=== PATIENT | male | born 1945 | race Caucasian/White ===

== ENCOUNTER 2019-03-29 10:29 | Emergency (ER) | payer OTHER, SELFPAY ==
[2019-03-29 10:36] VITALS: BP 134/63; PULSE 51; RESP 20; TEMP 36.8; O2SAT 97
--- NOTE | 2019-03-29 10:57 | DI.RAD_ITS ---
SYMPTOM/DIAGNOSIS: FELL, LT RIB PAIN PA AND LATERAL CHEST: Comparison is made with 11/22/14. Heart size and pulmonary vasculature are within normal limits. Sternal wires are in place. The lungs are clear. No effusions are seen. No acute osseous abnormality is identified. Degenerative changes are seen in the spine. The patient is status post aortic valve replacement. IMPRESSION: No acute pulmonary process.
[2019-03-29] MEDS: Lidocaine 5% Patch 1 PATCH TP (11:14)
[2019-03-29] MEDS: Acetaminophen 500 MG TAB 1000 MG PO (11:14)
--- NOTE | 2019-03-29 12:12 | ED.GENADUL_ITS ---
Discharge Plan Disposition Patient Disposition: HOME Condition: Good Discharge Details Chief Complaint: Chest/Rib Clinical Impression: Contusion of rib on left side Primary Care Provider: Unknown,Unknown ED Provider: oJse Walker Home Meds and New Rx's Prescriptions: New acetaminophen [Mapap Extra Strength] 500 MG tablet 1,000 mg PO Q6H 5 Days Qty: 60 RF: 0 lidocaine [Lidoderm] 1 PATCH patch 1 patch Topical Q24H Qty: 4 RF: 0 No Action aspirin [Aspir-81] 81 MG tablet,delayed release (DR/EC) 81 mg PO DAILY RF: 0 simvastatin 5 MG tablet 5 mg PO DAILY RF: 0 cvvuaeor-eev-FD-lycopen-lutein [Centrum Silver] 1 EACH tablet 1 tab PO DAILY RF: 0 Discharge Instructions Instructions: Rib Contusion (ED) Additional Instructions: Your x-ray results show no evidence of rib fracture, or significant fluid on your lungs. The ultrasound findings were also normal. I suspect a notable contusion to your left ribs. Please take the Lidoderm patch as directed, as well as maximum dose Tylenol. Please use the incentive spirometry multiple times per day. If you notice any worsening of your symptoms, or any new symptoms such as vomiting, diarrhea, fever, chills, shortness of breath, chest pain, numbness, weakness, or fainting , please return immediately to the emergency department for reevaluation. Please follow up with your primary care provider as soon as possible for reassessment and reevaluation. As always, it was a pleasure participating in your medical care today. Medical Decision Making This is a pleasant 73-year-old male who presents today for evaluation of left rib pain. The patient states that he was walking with his dog and he went to pick it up but fell and hit his left mid ribs. He denies any other significant trauma or pain. Physical exam demonstrates reproducible tenderness over the left seventh and eighth ribs, no paradoxical movement, normal oxygen saturations. Bedside ultrasound demonstrates no evidence of pneumothorax, negative E fast exam. Chest x-ray was ordered to evaluate for significant rib fracture, and per Dr. Dixon there is no evidence of significant fracture or acute process. Incentive spirometry was ordered and the patient did very well with this with notable volume intakes. Lidoderm patch and NSAIDs were given the patient had notable improvement of his pain with this. Will recommend continued NSAIDs at home, incentive spirometry, and Lidoderm patches. We discussed red flags which to return the patient understands. I have extensively reviewed the treatment plan and discharge instructions with the patient. I have addressed all patient concerns at this time. The patient was made aware of what symptoms to monitor for that would warrant a return to the emergency department. Discussed the plan with the patient, they demonstrate verbal understanding and agreement with our assessment and plan at this time. E-FAST Exam type: Diagnostic Indication for exam: Blunt trauma Views obtained: hepatorenal, perisplenic, suprapubic, pericardial, R lung, L lung Findings and interpretations: all views were adequate. No abdominal free fluid or pericardial fluid seen. Normal lung sliding, normal sea shore sign, no bar code sign indicating no pneumothorax. The patient tolerated the procedure well and there were no complications. HPI General Date/Time Provider Initiated Documentation: 03/29/19 10:42 . HPI Narrative: This is a 73-year-old male with past medical history of high cholesterol who presents today for evaluation of left-sided rib pain. Patient states that yesterday he fell when trying to fern picker his dog, and lifted on his left mid ribs. Since then he has had mild pain with breathing and palpation over the left mid ribs. He denies any cough or shortness of breath. He denies any vomiting diarrhea or abdominal pain. He is on no blood thinners. He states that he is concerned he may have cracked 1 of his ribs. He denies any other complaints. He denies any numbness tingling or weakness. He denies any other complaints modifying factors Related Data Home Medications Medication Instructions Recorded Confirmed aspirin [Aspir-81] 81 mg PO DAILY 11/22/14 10/30/17 soacocsd-mws-YC-lycopen-lutein 1 tab PO DAILY 11/22/14 10/30/17 [Centrum Silver] simvastatin 5 mg PO DAILY 11/22/14 10/30/17 acetaminophen [Mapap Extra 1,000 mg PO Q6H 5 Days #60 tab 03/29/19 Strength] lidocaine [Lidoderm] 1 patch TOPICAL Q24H #4 patch 03/29/19 Previous Rx's Medication Instructions Recorded acetaminophen [Mapap Extra 1,000 mg PO Q6H 5 Days #60 tab 03/29/19 Strength] lidocaine [Lidoderm] 1 patch TOPICAL Q24H #4 patch 03/29/19 Allergies Allergy/AdvReac Type Severity Reaction Status Date / Time No Known Allergies Allergy Unverified 10/30/17 10:12 General Stated Complaint: Chest/Rib CARLEE: 3 Review of Systems Review of Systems All systems reviewed & are unremarkable except as noted in HPI and below PFSH Social History Smoking/Tobacco Use Status: Never Alcohol Intake: never Drug use: Never Substance use type: does not use Do you feel safe at home: Yes Do you feel safe in your relationship?: Yes Exam Narrative Exam Narrative: 1.Const: Well-nourished, Well-developed, appearing stated age 2.Eyes: PERRL, no conjunctival injection, and symmetrical lids. 3.ENT: Atraumatic external nose and ears. Moist MM. Neck: Symmetric, trachea midline, No thyromegaly. 4.CVS: +S1/S2, No murmurs or gallops. Peripheral pulses 2+ and equal in all extremities. Brisk capillary refill in all extremities. 5.RESP: airway clear, no obstructions. No abrasions or ecchymosis. Chest movement symmetric with respirations.Trachea midline. No crepitus. No step offs. No paradoxical movements. Lungs are clear to auscultation bilaterally. No rales, rhonchi, wheezing or stridor. Breath sound symmetric. No Sucking chest wounds. No clinical evidence of significant chest trauma. The patient does have mild reproducible left-sided rib pain tenderness over rib 7 and 8. No evidence of significant bruising or paradoxical movement. 6.GI: Soft, Nontender/Nondistended, No hepatosplenomegaly. No guarding or rebound. 7.MSK: Normocephalic/Atraumatic, Extremities w/o deformity or ttp No cyanosis or clubbing, Normal movement of all extremities 8.Skin: Warm, Dry. No rashes or lesions. 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 Sensation grossly intact, no focal neurologic deficits. 10.Psych: (AAO) x3. Appropriate mood and affect Course Vital Signs Temperature 36.8 C 03/29/19 10:36 Pulse 51 L 03/29/19 10:36 Respiratory Rate 20 03/29/19 10:36 Blood Pressure 134/63 03/29/19 10:36 Pulse Oximetry 97 03/29/19 10:36 Temperature 36.8 C 03/29/19 10:36 Temperature Source Temporal Artery Scan 03/29/19 10:36 Pulse 51 L 03/29/19 10:36 Respiratory Rate 20 03/29/19 10:36 Respiratory Effort Non-Labored 03/29/19 10:36 Blood Pressure 134/63 03/29/19 10:36 Pulse Oximetry 97 03/29/19 10:36 Oxygen Delivery Method Room Air 03/29/19 10:36 Oxygen Flow Rate 0 03/29/19 10:36 Pain Level 5 03/29/19 10:36
== END 2019-03-29 12:29 | disposition home or self-care (01) ==
PROVIDERS: Emergency Provider Student in an Organized Health Care Education/Training Program
DX: S20.222A Contusion of left back wall of thorax, initial encounter (principal); W01.0XXA Fall on same level from slipping, tripping and stumbling without subsequent striking against object, initial encounter
CPT/HCPCS: 99283; 71046; 99282

== ENCOUNTER 2024-05-14 10:15 | Emergency (ER) | payer OTHER, SELFPAY ==
[2024-05-14] VITALS (36 sets, daily range): BP systolic 130–171; BP diastolic 60–80; PULSE 44–77; RESP 10–25; TEMP 36.9; O2SAT 91–98
--- NOTE | 2024-05-14 10:00 | RT.EKG_ITS ---
APPROVED REPORT Exam: Resting ECG Reason for Exam: sob, chest pain Patient Location: E HR:54 bpm ECG Measurements Heart Rate 54 AXIS MT [id number] P [id number] QRSd 100 QRS 76 QT 393 T [id number] QTc 371 Conclusion Atrial fibrillation...? atrial activity Probable anterior infarct, age indeterminate...Q >35mS, T neg, V2-V5
--- NOTE | 2024-05-14 10:30 | DI.RAD_ITS ---
Exam(s) XR PORTABLE CHEST AP EXAM: XR PORTABLE CHEST AP CLINICAL HISTORY: shortness of breath TECHNIQUE: 2D digital imaging was performed. COMPARISON: CR XR CHEST 2V PA LATERAL from 03/29/2019 FINDINGS: LUNGS: Clear. No pleural abnormality seen. HEART: Normal size. Status post CABG. AORTA: Normal diameter. BONES: Sternal wires. Soft tissues: Unremarkable. IMPRESSION: No acute findings. DATA REPOSITORY: RADIATION DOSE DELIVERED:
[2024-05-14 10:32] LABS: BE (Venous) 1 mmol/L (-2-3); HCO3 (Venous) 25 mmol/L (23-28); O2 Sat (Venous) 90 %; TCO2 (Venous) 22 mmol/L (24-29); pCO2 (Venous) 35 mmHg (41-51); pH (Venous) 7.45 (7.31-7.41); pO2 (Venous) 53 mmHg
[2024-05-14 10:35] LABS: Abs Immature Grans 0.01 10^3/uL (0.0-0.06); Absolute Basophil Count 0.04 10^3/uL (0.0-0.2); Absolute Eosinophil Count 0.11 10^3/uL (0.0-0.7); Absolute Lymphocyte Count 1.15 10^3/uL (1.2-3.4); Absolute Neutrophil Count 3.85 10^3/uL (1.2-6.7); Basophils % 0.7 %; Eosinophils % 1.9 %; HCT 40.1 % (40.0-50.0); HGB 13.7 g/dL (13.5-17.5); Immature Grans % 0.2 %; Lymphocytes % 19.6 %; MCH 30.7 pg (27.0-33.0); MCHC 34.2 % (32.0-36.0); MCV 90 fL (80-95); Monocytes % 11.9 %; Neutrophils % 65.7 %; RBC 4.46 10^6/uL (4.36-5.78); RDW 13.3 % (11.8-14.1); RDW-SD 43.9 fL; WBC 5.86 10^3/uL (4.4-10.8)
--- NOTE | 2024-05-14 10:39 | ED.GENADUL_ITS ---
Discharge Plan Disposition Patient Disposition: Home Condition: Stable Discharge Details Clinical Impression: Dyspnea on exertion Primary Care Provider: Keyon Anderson ED Provider: Norbert Moss Home Meds and New Rx's Prescriptions: Continued cholecalciferol (vitamin D3) 25 mcg (1,000 unit) capsule 1,000 unit PO DAILY Patient Comments: 05/04/20- pt reported med. NC atorvastatin 80 mg tablet 80 mg PO DAILY tamsulosin 0.4 mg capsule 0.4 mg PO DAILY aspirin [Aspir-81] 81 MG tablet,delayed release (DR/EC) 81 mg PO DAILY Patient Comments: Pt also takes BP pill but doesn't know the name or dose losartan [Cozaar] 50 mg tablet 50 mg PO DAILY Discharge Instructions Additional Instructions: Your blood work and CAT scan did not show any concerning findings at this time. I recommend following up with your primary care provider or waste cotton cleaner soon as possible. If you develop any severe worsening symptoms, severe chest pain or worsening sh ortness of breath return to the emergency department for reevaluation. Discharge Data Discharge Date/Time-TO BE ENTERED AT DEPARTURE: 05/14/24 14:20 HPI General Mode of arrival: ambulatory . Date/Time Provider Initiated Documentation: 05/14/24 10:17 . Limitations to Documentation: no limitations . Information obtained by: patient . History of Present Illness 78 year old M presents to the emergency department with the chief complaint of dyspnea with exertion, described as moderate, Patient started experiencing this week(s) (2) and it has been intermittent. Rest improves symptom(s), Movement worsens symptoms . Patient notes diaphoresis; denies chest pain. Patient did receive the following treatments prior to arrival, none Related Data Home Medications ?Medication ?Instructions ?Recorded ?Confirmed aspirin 81 mg tablet,delayed 81 mg PO DAILY 11/22/14 05/14/24 release (Aspir-) atorvastatin 80 mg tablet 80 mg PO DAILY 01/02/20 05/14/24 tamsulosin 0.4 mg capsule 0.4 mg PO DAILY 01/02/20 05/14/24 cholecalciferol (vitamin D3) 25 1,000 unit PO DAILY 05/04/20 05/14/24 mcg (1,000 unit) capsule losartan 50 mg tablet (Cozaar) 50 mg PO DAILY 05/14/24 05/14/24 Allergies Allergy/AdvReac Type Severity Reaction Status Date / Time No Known Allergies Allergy Verified 05/14/24 10:22 General Stated Complaint: RespSymp CARLEE: 3 Review of Systems All systems reviewed & are unremarkable except as noted in HPI and below Constitutional Constitutional: Denies chills, Denies fever(s) and Denies weakness Cardiovascular Cardiovascular: Denies chest pain and Reports dyspnea Respiratory Respiratory: Denies cough and Reports dyspnea Gastrointestinal Gastrointestinal: Denies abdominal pain, Denies nausea and Denies vomiting Musculoskeletal Musculoskeletal: Denies joint swelling Neurologic Neurologic: Denies weakness Exam Const General: no acute distress Orientation: alert HENMT Head: normal to inspection Ears: external ears normal General nose exam: external nose normal Mouth: moist mucous membranes Eyes General: appearance normal, both eyes and all related structures Neck Neck: normal visual inspection Resp Effort & Inspection: normal respiratory effort and able to speak in complete sentences Auscultation: clear to auscultation bilaterally Cardio Jugular venous pressure: no JVD Rate: regular rate Skin General skin exam: no rashes or lesions noted Neuro General: patient alert and patient oriented x3 Extrem General: normal to inspection Psych Mental Status: mental status grossly normal Course Vital Signs Vital signs: Vital Signs Temperature 36.9 C 05/14/24 10:17 Pulse 74 05/14/24 10:17 Respiratory Rate 18 05/14/24 10:17 Blood Pressure 167/76 H 05/14/24 10:17 Pulse Oximetry 94 05/14/24 10:17 Temperature 36.9 C 05/14/24 10:17 Temperature Source Oral 05/14/24 10:17 Pulse 74 05/14/24 10:17 Respiratory Rate 18 05/14/24 10:17 Respiratory Effort Normal, Non-Labored 05/14/24 10:23 Blood Pressure 167/76 H 05/14/24 10:17 Blood Pressure Position Sitting 05/14/24 10:17 Pulse Oximetry 94 05/14/24 10:17 Oxygen Delivery Method Room Air 05/14/24 10:17 Oxygen Flow Rate 0 05/14/24 10:17 Lab/Test Results Lab/Test Results: Laboratory Tests Range/Units 05/14/24 10:10 VBG pH (7.31-7.41) 7.45 H VBG pCO2 (41-51) mmHg 35 L VBG pO2 mmHg 53 VBG HCO3 (23-28) mmol/L 25 VBG Total CO2 (24-29) mmol/L 22 L VBG O2 Saturation % 90 VBG Base Excess (-2-3) mmol/L 1 Magnesium Cancelled Troponin I Cancelled NT-Pro-B Natriuret Pep Cancelled Medical Decision Making 78-year-old male with a history of coronary artery disease status post coronary bypass, hyperlipidemia, comes in with EMS with 2 weeks of shortness of breath and diaphoresis when he walks up stairs to his apartment. He denies any chest pain, fevers, cough, abdominal pain, vomiting. He is currently alert and orie nted speaking clearly in no distress. He denies any symptoms while resting in the stretcher. He has clear lung sounds, no JVD. Given his risk factors and complaints will obtain troponin, CBC, CMP start with a chest x-ray. If unremarkable workup we will consider CTA of the chest but he does not have any evidence of DVT on exam and he is not tachycardic or hypoxic so doubt PE at this time. Labs thus far unremarkable, patient stable. X-ray unremarkable given his age will obtain CTA as his renal function is adequate. Patient stable, CT unremarkable. Delta troponin negative. I discussed the results with him and recommended admission for observation and further testing including potentially having echocardiogram versus stress testing and remaining on telemetry monitoring. Patient has medical decision-making capacity and after discussing the reassuring workup he is declining to stay and prefers to follow- up with his primary care provider and is wanting hospital. He understands risks of leaving including worsening symptoms and missed [place] which could lead to or permanent disability and he is willing accept the risk. Given reassuring workup do not feel he is officially signed out AMA but distressed that he needs to follow-up with his PCP or waste cotton cleaner as soon as possible return precautions given. Differential Diagnosis Differential Diagnosis: CHF, NSTEMI, angina Imaging Data Radiologic Study: Attestation: I personally reviewed and interpreted this imaging study as follows: Imaging: X-Ray Radiologist's impression: no acute findings Radiologic Study #2: Attestation: I personally reviewed and interpreted this imaging study as follows: Imaging: CT Scan Radiologist's impression: no acute findings Lab Data Lab results reviewed: Yes I reviewed the patient's lab results. ECG Data Attestation: I personally reviewed and interpreted this ECG (s) as follows: Prior ECG tracings: not available for review Interpretation: question junctional rhythm vs afib, rate of 54, no stemi 2nd ekg junctional rhythm, rate of 48, no stemi Quality:SDOH Health Related Social Needs: No Data to Display PFSH All Active Problems (Updated 05/14/24 @ 14:01 by Norbert Moss MD) Dyspnea on exertion (Acute) Hip osteoarthritis (Acute) Weight gain (Acute) Elevated PSA (Acute) 3.96 in December 2019 CAD (coronary artery disease) (Chronic) Hyperlipidemia (Acute) Hematuria (Acute) Cataracts, bilateral (Acute) History of [place] (myocardial infarction) (Acute ~1993) Medical History (Updated 05/14/24 @ 14:01 by Norbert Moss MD) Dyspnea Severe aortic stenosis Resolved with valvuloplasty in 2014. Unstable angina Surgical History (Updated 12/24/19 @ 13:41 by Ivonne Hollis) Hx of CABG Family History (Updated 12/24/19 @ 13:30 by Ivonne Hollis) Brother Cancer Brother Cancer Social History (Updated 06/29/23 @ 11:00 by Sunitha Murray) Smoking/Tobacco Use Status: Never Second Hand Exposure: Yes Smoking risk assessment performed?: Yes Alcohol Intake: former Year quit: 2021 Details: Has been alcohol free for almost 1 yr Drug use: Never Substance use type: does not use Adopted: No Caregiver/Support person: No Foster care: No Household members: none Housing: apartment Number of Children: 3 number of grandchildren: 4 Communication Needs: Hard of Hearing and Corrective Lenses Education Level: college 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 Do you need help understanding health information?: Rarely current occupation: Retired Pets and animals: No Sexually active: No Do you think of yourself as: straight/heterosexual Current gender identity: male What is your relationship status?: How often do you talk on the phone with friends or family?: once per week How often do you get together with friends or relatives?: never Do you belong to any clubs or organized social groups?: yes Panel score (0-1 are the most socially isolated patients): 1 What type of physical activity do you participate in: walking Duration: 15-30 minutes/day Frequency: daily Ktae/Evangelical: Non sabianism Special kate needs: No Agree to transfusion: Yes Seatbelt use: always Helmet use: No (N/A) 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 He will be moving to own apt in [place] 05/18/20. POCUS Exam (ED) Limited Cardiac Exam REASON FOR EXAM: Dyspnea VISUALIZED STRUCTURES: Left ventricle and Right ventricle VIEW OBTAINED: Parasternal long-axis and Subxiphoid PERTINENT FINDINGS/IMPRESSION: No LV dysfunction and No pericardial effusion Exam complete
[2024-05-14 10:47] LABS: INR 1.1 (0.9-1.1); PTT Activated 19.5 sec (23.6-32.8)
[2024-05-14 11:05] LABS: Diff Comment PLT Morph Reviewed; RBC Morphology Normal
--- NOTE | 2024-05-14 11:15 | DI.CT_ITS ---
Exam(s) CT CHEST PE CTA EXAM: CT CHEST PE CTA CLINICAL HISTORY: shortness of breath, chest pain. TECHNIQUE: Imaging Protocol: Axial CT angiography was performed with multi-slice acquisition and mu lti-planar reconstructions as well as axial, coronal and sagittal MIP reconstructions. CONTRAST MATERIAL: Intravenous: Omnipaque 350 Contrast volume:100 ml COMPARISON: CR XR PORTABLE CHEST AP from 05/14/2024 FINDINGS: Pulmonary Arteries: No evidence of filling defect to suggest pulmonary emboli. Tracheobronchial tree: No mucous plugging. Mediastinum and Nyla: No dominant adenopathy or fluid collection. Pulmonary parenchyma: No consolidation or dominant measurable mass. Pleura: No effusion or pneumothorax. Heart: Aortic valve prosthesis. Mild left ventricular and atrial dilatation. Severe coronary artery calcifications. Aorta: Thoracic aorta non-dilated. No dissection. Upper abdomen: No acute findings. Bones: Sternal wires. Prominent endplate osteophytes in the thoracic spine. No compression fracture s. Tubes, Catheters, and Lines: None Soft tissues: Unremarkable. IMPRESSION: No evidence of pulmonary embolism or other acute abnormality in the chest. RADIATION DOSE DELIVERED: Total DLP DATA REPOSITORY: All CT scans at this facility are submitted to the National Radiology Data Registry (NRDR) Dose Index Registry (DIR) with the [employer] (ACR). RADIATION OPTIMIZATION: All CT scans at this facility use at least one of these dose optimization te chniques: automated exposure control; mA and/or kV adjustment per patient size (includes targeted exa ms where dose is matched to clinical indication); or iterative reconstruction.
[2024-05-14 11:20] LABS: ALT 28 U/L (16-63); AST 30 U/L (15-37); Albumin 4.2 g/dL (3.4-5.0); Alkaline Phosphatase 57 U/L (46-116); Anion Gap 10.8 mmol/L (3-11); BUN 20 mg/dL (7-18); CO2 25.2 mmol/L (21.0-32.0); Calcium 9.5 mg/dL (8.5-10.1); Chloride 107 mmol/L (98-107); Estimated GFR 76.08 (mL/min/1.73m2); Glucose 100 mg/dL (74-106); NT-proBNP 217 pg/mL (<300); Potassium 4.5 mmol/L (3.5-5.1); Sodium 143 mmol/L (136-145); Total Protein 7.3 g/dL (6.4-8.2); Troponin I < 50 ng/L (< or =60)
[2024-05-14 11:32] LABS: COVID-19 PCR Negative (Negative); Influenza A PCR Negative (Negative); Influenza B PCR Negative (Negative); RSV PCR Negative (Negative)
[2024-05-14] MEDS: Normal Saline - Diluent 50 ML VIAL IJ (12:18)
[2024-05-14] MEDS: Omnipaque 350 MG/ML 100 ML BTL IJ (12:19)
--- NOTE | 2024-05-14 13:00 | RT.EKG_ITS ---
APPROVED REPORT Exam: Resting ECG Reason for Exam: bradycardia Patient Location: E HR:48 bpm ECG Measurements Heart Rate [address] [id number] P [id number] QRSd 106 QRS 68 QT 475 T 155 QTc 426 Conclusion Junctional rhythm...absent P waves, slow V-rate Abnormal T, consider ischemia, lateral leads...T <-0.20mV, I aVL V5 V6
[2024-05-14 13:38] LABS: Troponin I < 50 ng/L (< or =60)
== END 2024-05-14 14:20 | disposition home or self-care (01) ==
PROVIDERS: Emergency Provider Emergency Medicine; PCP Family Medicine
DX: R06.09 Other forms of dyspnea (principal); R94.31 Abnormal electrocardiogram [ECG] [EKG]; I25.110 Atherosclerotic heart disease of native coronary artery with unstable angina pectoris; I25.2 Old myocardial infarction; E78.5 Hyperlipidemia, unspecified; I10 Essential (primary) hypertension; Z95.1 Presence of aortocoronary bypass graft; Z79.82 Long term (current) use of aspirin
CPT/HCPCS: 71275; 80053; 82805; 87637; 93005; 93308; 99285; 71045; 83735; 83880; 84484; 85025; 85610; 85730; 93010; 99284; J3490

== ENCOUNTER 2024-08-14 00:40 | Outpatient (CLI) | payer MEDICARE, SELFPAY ==
--- NOTE | 2024-08-14 10:00 | DI.US_ITS ---
Exam(s) US CAROTID EXAM: US CAROTID CLINICAL HISTORY: Lightheadedness,PRESYNCOPE,R55. TECHNIQUE: Ultrasound carotids performed using grayscale, color-flow, and spectral Doppler imaging. COMPARISON: No exams were available for comparison FINDINGS: RIGHT CAROTID ARTERY: Plaque: Minimal mild noncalcified plaque at proximal internal carotid artery. Velocity elevation: None. LEFT CAROTID ARTERY: Plaque: Minimal mild multifocal plaque at the common carotid bulb and proximal internal carotid arter y. Velocity elevation: None. VERTEBRAL ARTERIES: Antegrade flow. Measurements: R Bulb: 77.6cm/s PS / 14.1cm/s ED R CCA: 73.7cm/s PS / 11.5cm/s ED R ECA: 108.7cm/s PS / 6.3cm/s ED R ICA Prox: 82.8cm/s PS / 12.8cm/s ED R ICA Mid: 59.5cm/s PS / 12.8cm/s ED R ICA Distal: 47.8cm/s PS /15.4cm/s ED R Vert: 46.2cm/s PS / 12.7cm/s ED R SVR: 1.1 R DVR: 1.1 L Bulb: 66.7cm/s PS / 16.6cm/s ED L CCA: 84.6cm/s PS / 15.3cm/s ED L ECA: 74.4cm/s PS / 6.3cm/s ED L ICA Prox: 57.7cm/s PS / 14cm/s ED L ICA Mid: 57.7cm/s PS / 15.3cm/s ED L ICA Distal: 81.7cm/s PS / 16.5cm/s ED L Vert: 35.7cm/s PS / 11.4cm/s ED L SVR: 1 L DVR: 1.1 IMPRESSION: No evidence for hemodynamically significant carotid stenosis. Mild plaque bilaterally. Criteria for Carotid Stenosis: Normal: ICA PSV <125 cm/s no plaque or intimal thickening is visible. <50% stenosis: ICA PSV <125 cm/s and plaque or intimal thickening is visible. 50-69% stenosis: ICA PSV is 125-250 cm/s and plaque is visible. >70% stenosis to near occlusion: ICA PSV >250 cm/s with visible plaque and luminal narrowing. DATA REPOSITORY:
== END 2024-08-14 01:00 ==
LOC: DI 00:40
PROVIDERS: PCP Family Medicine; Visit Provider Family Medicine
DX: R55 Syncope and collapse (principal)
CPT/HCPCS: 93880

== ENCOUNTER 2024-09-05 09:16 | Outpatient (RCR) | payer OTHER, MEDICARE, SELFPAY ==
--- NOTE | 2024-09-10 14:28 | HOLT_ITS ---
Date of service: 09/10/24 Time of Service: 14:28 Holter Monitor Report Referring Provider:: Keyon Anderson Indications:: Syncope Holter Monitor Note: This is a 48-hour Holter monitor. Predominant rhythm was sinus with an average heart rate overall was 53. Minimum was 32, maximum 99. There were no significant ventricular dysrhythmias Mobitz 1 second-degree AV block (Wenckebach) was seen. There appeared to be periods of junctional rhythm, entirely regular, P waves difficult to discern. Automatic interpretation called this atrial fibrillation but it does not appear to be atrial fibrillation given that it is not irregular. There was no high- grade AV block, no pauses greater than 3 seconds No symptoms were reported
== END 2024-09-14 23:59 | disposition home or self-care (01) ==
LOC: CARDOPNVT 09:16
PROVIDERS: PCP Family Medicine; Visit Provider Internal Medicine Cardiovascular Disease
DX: R55 Syncope and collapse (principal)
CPT/HCPCS: 93227; 93225; 93226

== ENCOUNTER 2025-03-24 10:50 | Outpatient (CLI) | payer OTHER, SELFPAY ==
--- NOTE | 2025-03-24 10:45 | DI.RAD_ITS ---
Exam(s) XR PELVIS AP EXAM: XR PELVIS AP CLINICAL HISTORY: oa r hip. TECHNIQUE: 2D digital imaging was performed. COMPARISON: CR PELVIS + BILATERAL HIPS from 10/02/2024 FINDINGS: Single AP view There is no evidence of pelvic nor hip fracture. There are advanced degenerative changes in both hips again noted, appearing unchanged from outside im ages of September 2024. some dystrophic calcifications again noted in the right hip just medial to the femoral neck. IMPRESSION: Advanced osteoarthritic degenerative changes both hips, unchanged radiographically from 10/02/2024 im ages DATA REPOSITORY: RADIATION DOSE DELIVERED:
== END 2025-03-24 10:51 | disposition home or self-care (01) ==
LOC: DIORS 10:50
PROVIDERS: PCP Family Medicine; Referring Provider Family Medicine; Visit Provider Physician Assistant
DX: M16.11 Unilateral primary osteoarthritis, right hip (principal)
CPT/HCPCS: 72170

== ENCOUNTER 2025-03-24 21:20 | Outpatient (REF) | payer OTHER, SELFPAY ==
[2025-03-24 14:47] LABS: HCT 37.4 % (40.0-50.0); HGB 12.6 g/dL (13.5-17.5); MCH 31.3 pg (27.0-33.0); MCHC 33.7 % (32.0-36.0); MCV 93 fL (80-95); MPV 10.1 fL (8.0-11.0); Platelet Count 163 10^3/uL (130-400); RBC 4.03 10^6/uL (4.36-5.78); RDW 13.2 % (11.8-14.1); RDW-SD 45.1 fL
[2025-03-24 15:09] LABS: Anion Gap 8.2 mmol/L (3-11); BUN 30 mg/dL (7-18); CO2 27.8 mmol/L (21.0-32.0); Calcium 9.8 mg/dL (8.5-10.1); Chloride 105 mmol/L (98-107); Estimated GFR 75.61 (mL/min/1.73m2); Glucose 102 mg/dL (74-106); Potassium 4.4 mmol/L (3.5-5.1); Sodium 141 mmol/L (136-145)
== END 2025-03-24 21:21 | disposition home or self-care (01) ==
LOC: LBN 21:20
PROVIDERS: PCP Family Medicine; Visit Provider Student in an Organized Health Care Education/Training Program
DX: M16.11 Unilateral primary osteoarthritis, right hip (principal); Z01.818 Encounter for other preprocedural examination
CPT/HCPCS: 80048; 85027

== ENCOUNTER 2025-04-01 08:14 | Day surgery (SDC) | payer OTHER, SELFPAY ==
--- NOTE | 2025-04-01 07:26 | W.PM.DS.N ---
DS: Diagnosis Discharge Diagnosis (1) Osteoarthritis of right hip: Status: Acute Discharge Plan Disposition Patient Disposition: Home Condition: Good Discharge Details Reason For Visit: Right hip DJD Attending Provider: Greg Castillo Primary Care Provider: Keyon Anderson Isabella Meds and New Rx's Prescriptions: No Action cholecalciferol (vitamin D3) 25 mcg (1,000 unit) capsule 1,000 unit PO DAILY Patient Comments: 05/04/20- pt reported med. NC acetaminophen 500 mg capsule 1,000 mg PO QAM Patient Comments: Will take second dose in the evening if needed atorvastatin 80 mg tablet 80 mg PO DAILY tamsulosin 0.4 mg capsule 0.4 mg PO DAILY aspirin [Aspir-81] 81 MG tablet,delayed release (DR/EC) 81 mg PO DAILY Patient Comments: Pt also takes BP pill but doesn't know the name or dose Discharge Instructions Stand Alone Forms: Anesthesia Discharge Inst., Press Ganey (DSU) PFS All Active Problems Osteoarthritis of right hip (Acute) Orthostasis (Acute) Pre-syncope (Acute) Hip osteoarthritis (Acute) Weight gain (Acute) Elevated PSA (Acute) 3.96 in December 2019 CAD (coronary artery disease) (Chronic) Hyperlipidemia (Acute) Hematuria (Acute) Cataracts, bilateral (Acute) History of CA (myocardial infarction) (Acute ~1993) Medical History Dyspnea Severe aortic stenosis Resolved with valvuloplasty in 2014. Unstable angina Surgical History History of cataract surgery Left eye: 04/08/2024 Right eye: 04/22/2024 [facility] Hx of CABG Family History Brother Cancer Brother Cancer Social History (Updated 03/21/25 @ 13:35 by Kiesha Garza LPN) Smoking/Tobacco Use Status: Never Smoking risk assessment performed?: Yes Alcohol Intake: current Alcohol Intake frequency: holidays/special occasions only Previous attempts at quittin Drug use: Never Substance use type: does not use Adopted: No Household members: none Housing: apartment Number of Children: 3 number of grandchildren: 4 Communication Needs: Corrective Lenses Education Level: vocational Do you need help understanding health information?: Often current occupation: Retired Pets and animals: No Sexually active: No Do you think of yourself as: straight/heterosexual Current gender identity: male What is your relationship status?: How often do you talk on the phone with friends or family?: once per week How often do you get together with friends or relatives?: once per week Do you belong to any clubs or organized social groups?: yes Panel score (0-1 are the most socially isolated patients): 1 What type of physical activity do you participate in: walking Duration: 15-30 minutes/day Frequency: daily Kate/Congregation: [employer] Special kate needs: No Agree to transfusion: Yes Seatbelt use: always Drive intox 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 He will be moving to own [facility] in [place] 05/18/20.
[2025-04-01 08:40] VITALS: BP 146/66; PULSE 52; RESP 20; TEMP 36.6; O2SAT 98
[2025-04-01] MEDS: Celecoxib 200 MG CAP 400 MG PO (08:56)
[2025-04-01] MEDS: Acetaminophen 500 MG TAB 1000 MG PO (08:56)
--- NOTE | 2025-04-01 09:08 | W.ANESPRE ---
General Info Date of Service Date Performed: 04/01/25 Height: 5 ft 8 in Weight: 116.573 kg Body Mass Index (BMI): 39.0 Surgical Procedure: Operation Date: 04/01/25 11:05 Proposed Procedure Side Surgeon p Hip Total Hip Anterior, ACTIS Right Greg Castillo MD Meds Allergies and Home Medications Allergies Allergy/AdvReac Type Severity Reaction Status Date / Time No Known Allergies Allergy Verified 04/01/25 08:51 Home Medication ?Medication ?Instructions ?Recorded aspirin 81 mg tablet,delayed 81 mg PO DAILY 11/22/14 release (Aspir-) atorvastatin 80 mg tablet 80 mg PO DAILY 01/02/20 tamsulosin 0.4 mg capsule 0.4 mg PO DAILY 01/02/20 cholecalciferol (vitamin D3) 25 1,000 unit PO DAILY 05/04/20 mcg (1,000 unit) capsule acetaminophen 500 mg capsule 1,000 mg PO QAM Chronic hip pain 09/17/24 (right) Current Visit Medications: Current Medications Generic Name Dose Route Start Last Admin Trade Name Freq PRN Reason Stop Dose Admin Acetaminophen 1,000 mg 04/01/25 06:00 04/01/25 08:56 Acetaminophen 500 Mg Tab PO 04/01/25 23:59 1,000 mg PREOP LETA Administration Acetaminophen 1,000 mg 04/01/25 08:30 Acetaminophen 500 Mg Tab PO 05/01/25 08:29 TID LETA Aspirin 81 mg 04/01/25 08:30 Aspirin E.C. 81 Mg Tabec PO 05/01/25 08:29 BID LETA Celecoxib 400 mg 04/01/25 06:00 04/01/25 08:56 Celecoxib 200 Mg Cap PO 04/01/25 23:59 400 mg PREOP LETA Administration Cholecalciferol 1,000 units 04/02/25 08:30 Cholecalciferol (Vitamin D3) 1,000 Unit Tab PO 05/02/25 08:29 DAILY LETA Dexamethasone 4 mg 04/02/25 08:30 Dexamethasone 4 Mg Tab PO 04/03/25 08:31 DAILY LETA Docusate Sodium 100 mg 04/01/25 07:21 Docusate Sodium 100 Mg Cap PO 05/01/25 07:20 BID PRN PRN Constipation Hydromorphone HCl 0.5 mg 04/01/25 07:21 Hydromorphone 2 Mg/Ml Syr IVP 05/01/25 07:20 Q2H PRN PRN Ringer's Solution 1,000 mls @ 80 mls/hr 04/01/25 06:00 IV 04/01/25 23:59 INFUSION LETA Cefazolin Sodium/Dextrose 2 gm in 50 mls @ 100 mls/hr 04/01/25 06:00 Ancef Duplex IVPB 04/01/25 23:59 PREOP LETA Tranexamic Acid/Sodium Chloride 1,000 mg in 100 mls @ 600 mls/hr 04/01/25 06:00 IVPB 04/01/25 23:59 PREOP LETA Cefazolin Sodium/Dextrose 1 gm in 50 mls @ 100 mls/hr 04/01/25 08:00 Ancef Duplex IVPB 04/02/25 00:29 Q8H LETA IV Miscellaneous Supplies 1 each 04/01/25 06:00 Iv Access IV 04/01/25 23:59 DIRECTED LETA Meloxicam 15 mg 04/01/25 08:30 Meloxicam 15 Mg Tab PO 05/01/25 08:29 DAILY [facility] Non-Formulary Medication 80 mg 04/01/25 08:30 Atorvastatin PO 05/01/25 08:29 DAILY [facility] Ondansetron HCl 4 mg 04/01/25 07:21 Ondansetron 4 Mg/2 Ml Vial IVP 05/01/25 07:20 Q6H PRN PRN Nausea Oxycodone HCl 0 mg 04/01/25 07:21 Oxycodone 5 Mg Tab PO 05/01/25 07:20 Q3H PRN PRN Pain Pantoprazole Sodium 40 mg 04/02/25 07:30 Pantoprazole 40 Mg Tabcr PO 05/02/25 07:29 DAILY@0730 LETA Polyethylene Glycol 17 gm 04/01/25 07:21 Polyethylene Glycol 3350 17 Gm Packet PO 05/01/25 07:20 BID PRN PRN Constipation Sodium Chloride 0 ml 04/01/25 06:00 Normal Saline Flush 10 Ml Syr IV 04/01/25 23:59 PRN PRN Sodium Chloride 0 ml 04/01/25 06:00 Normal Saline 10 Ml Vial IJ 04/01/25 23:59 DIRECTED PRN Sterile Water 0 ml 04/01/25 06:00 Water,Injection,Sterile 10 Ml Vial IJ 04/01/25 23:59 DIRECTED PRN Tamsulosin HCl 0.4 mg 04/02/25 08:30 Tamsulosin 0.4 Mg Capcr PO 05/02/25 08:29 DAILY LETA Tranexamic Acid 1,300 mg 04/01/25 07:21 Tranexamic Acid 650 Mg Tab PO 05/01/25 07:20 ONCE PRN postoperative PFSH Active Problems Active Problems: Problem Status Onset Code Osteoarthritis of right hip Acute M16.11 Orthostasis Acute I95.1 Pre-syncope Acute R55 Hip osteoarthritis Acute M16.9 Weight gain Acute R63.5 Elevated PSA Acute R97.20 CAD (coronary artery disease) Chronic I25.10 Hyperlipidemia Acute E78.5 Hematuria Acute R31.9 Cataracts, bilateral Acute H26.9 History of [place] (myocardial infarction) Acute ~1993 I25.2 Medical History Medical History Dyspnea Severe aortic stenosis Resolved with valvuloplasty in 2014. Unstable angina Surgical History Surgical History History of cataract surgery Left eye: 04/08/2024 Right eye: 04/22/2024 [facility] Hx of CABG Tobacco Smoking/Tobacco Use Status: Never Passive smoking exposure: No Alcohol Alcohol Intake: current Alcohol intake frequency: holidays/special occasions only Substance Use Substance use: Never Substance use type: does not use Vital Signs and Lab Results Vital Signs Most Recent Vital Signs in EMR: Most Recent Vital Signs Temp Pulse Resp BP Pulse Ox 36.6 C 52 L 20 146/66 H 98 04/01/25 08:40 04/01/25 08:40 04/01/25 08:40 04/01/25 08:40 04/01/25 08:40 Lab Results Complete Blood Count: WBC, (4.4-10.8) 5.60 10^3/uL 03/24/25, 11:35 RBC, (4.36-5.78) 4.03 10^6/uL L 03/24/25, 11:35 Hgb, (13.5-17.5) 12.6 g/dL L 03/24/25, 11:35 Hct, (40.0-50.0) 37.4 % L 03/24/25, 11:35 Plt Count, (130-400) 163 10^3/uL 03/24/25, 11:35 Complete Metabolic Panel: Sodium, (136-145) 141 mmol/L 03/24/25, 11:35 Potassium, (3.5-5.1) 4.4 mmol/L 03/24/25, 11:35 Chloride, (98-107) 105 mmol/L 03/24/25, 11:35 Carbon Dioxide, (21.0-32.0) 27.8 mmol/L 03/24/25, 11:35 BUN, (7-18) 30 mg/dL H 03/24/25, 11:35 Creatinine, (0.70-1.30) 1.0 mg/dL 03/24/25, 11:35 Est GFR (CKD-EPI 2020), (mL/min/1.73m2) 75.61 03/24/25, 11:35 Calcium, (8.5-10.1) 9.8 mg/dL 03/24/25, 11:35 Glucose, (74-106) 102 mg/dL 03/24/25, 11:35 Anesthesia Assessment and Plan Anesthesia History Personal History: No History of Anesthesia Complications and Other Family History: No Family History of Anesthesia Complications Exercise Tolerance Exercise Tolerance: Metabolic Equivalents<4 Pertinent Negatives Pertinent Negatives: No Symptoms of GERD, No Major Cardiovascular Symptoms or Complaints, No Major Pulmonary Symptoms or Complaints and No History of CVA/TIA Cardiac & Pulmonary Exam Cardiac Exam: Normal S1/S2 Heart Sounds Pulmonary Exam: Clear Bilateral Breath Sounds and No cough or Cold Implantable Cardiac Device Does patient have a Pacemaker or an ICD?: No Airway Exam Known Difficult Airway: No Mallampati Class: 3 Mouth Opening: Normal (> 3cm) Thyromental Distance: Greater than 3 cm Neck Range of Motion: Full ROM Neck Circumference: Normal Teeth Condition: Removable Dentures/Plates Upper ASA Classification ASA Score: ASA 2 Emergency Case?: No NPO Status NPO Status: NPO Clears >2 hours, Solids >8 hours Anesthesia Plan Resuscitation Status: Full Code Anesthesia Technique: Spinal Anesthesia Airway Planned: Natural Airway Monitors Used: Standard Monitors
[2025-04-01] MEDS: Lactated Ringers 1,000 ML 80 ML IV (09:23)
--- NOTE | 2025-04-01 09:45 | RT.EKG_ITS ---
APPROVED REPORT Exam: Resting ECG Reason for Exam: Question new onset AF Patient Location: O HR:61 bpm ECG Measurements Heart Rate [address] [id number] P [id number] QRSd 98 QRS 47 QT 423 T 147 QTc 428 Conclusion Atrial fibrillation... LVH with repolarization abnormalities
--- NOTE | 2025-04-01 10:50 | ANES.PREOP_ITS ---
General Info Date of Service Date Performed: 04/01/25 Height: 5 ft 8 in Weight: 116.573 kg Body Mass Index (BMI): 39.0 Surgical Procedure: Operation Date: 04/01/25 11:05 Proposed Procedure Side Surgeon p Hip Total Hip Anterior, ACTIS Right Greg Castillo MD Meds Allergies and Home Medications Allergies Allergy/AdvReac Type Severity Reaction Status Date / Time No Known Allergies Allergy Verified 04/01/25 08:51 Home Medication ?Medication ?Instructions ?Recorded aspirin 81 mg tablet,delayed 81 mg PO DAILY 11/22/14 release (Aspir-) atorvastatin 80 mg tablet 80 mg PO DAILY 01/02/20 tamsulosin 0.4 mg capsule 0.4 mg PO DAILY 01/02/20 cholecalciferol (vitamin D3) 25 1,000 unit PO DAILY mcg (1,000 unit) capsule acetaminophen 500 mg capsule 1,000 mg PO QAM Chronic h ip pain 09/17/24 (right) Current Visit Medications: Current Medications Generic Name Dose Route Start Last Admin Trade Name Freq PRN Reason Stop Dose Admin Acetaminophen 1,000 mg 04/01/25 06:00 04/01/25 08:56 Acetaminophen 500 Mg Tab PO 04/01/25 23:59 1,000 mg PREOP LETA Administration Acetaminophen 1,000 mg 04/01/25 14:00 Acetaminophen 500 Mg Tab PO 05/01/25 13:59 TID LETA Aspirin 81 mg 04/01/25 20:00 Aspirin E.C. 81 Mg Tabec PO 05/01/25 19:59 BID LETA Celecoxib 400 mg 04/01/25 06:00 04/01/25 08:56 Celecoxib 200 Mg Cap PO 04/01/25 23:59 400 mg PREOP LETA Administration Cholecalciferol 1,000 units 04/02/25 08:30 Cholecalciferol (Vitamin D3) 1,000 Unit Tab PO 05/02/25 08:29 DAILY LETA Dexamethasone 4 mg 04/02/25 08:30 Dexamethasone 4 Mg Tab PO 04/03/25 08:31 DAILY LETA Docusate Sodium 100 mg 04/01/25 07:21 Docusate Sodium 100 Mg Cap PO 05/01/25 07:20 BID PRN PRN Constipation Hydromorphone HCl 0.5 mg 04/01/25 07:21 Hydromorphone 2 Mg/Ml Syr IVP 05/01/25 07:20 Q2H PRN PRN Ringer's Solution 1,000 mls @ 80 mls/hr 04/01/25 06:00 04/01/25 09:23 IV 04/01/25 23:59 80 mls/hr INFUSION LETA Administration Cefazolin Sodium/Dextrose 2 gm in 50 mls @ 100 mls/hr 04/01/25 06:00 Ancef Duplex IVPB 04/01/25 23:59 PREOP LETA Tranexamic Acid/Sodium Chloride 1,000 mg in 100 mls @ 600 mls/hr 04/01/25 06:00 IVPB 04/01/25 23:59 PREOP LETA Cefazolin Sodium/Dextrose 1 gm in 50 mls @ 100 mls/hr 04/01/25 08:00 Ancef Duplex IVPB 04/02/25 00:29 Q8H LETA IV Miscellaneous Supplies 1 each 04/01/25 06:00 Iv Access IV 04/01/25 23:59 DIRECTED LETA Meloxicam 15 mg 04/01/25 08:30 Meloxicam 15 Mg Tab PO 05/01/25 08:29 DAILY [facility] Non-Formulary Medication 80 mg 04/01/25 08:30 Atorvastatin PO 05/01/25 08:29 DAILY [facility] Ondansetron HCl 4 mg 04/01/25 07:21 Ondansetron 4 Mg/2 Ml Vial IVP 05/01/25 07:20 Q6H PRN PRN Nausea Oxycodone HCl 0 mg 04/01/25 07:21 Oxycodone 5 Mg Tab PO 05/01/25 07:20 Q3H PRN PRN Pain Pantoprazole Sodium 40 mg 04/02/25 07:30 Pantoprazole 40 Mg Tabcr PO 05/02/25 07:29 DAILY@0730 LETA Polyethylene Glycol 17 gm 04/01/25 07:21 Polyethylene Glycol 3350 17 Gm Packet PO 05/01/25 07:20 BID PRN PRN Constipation Sodium Chloride 0 ml 04/01/25 06:00 Normal Saline Flush 10 Ml Syr IV 04/01/25 23:59 PRN PRN Sodium Chloride 0 ml 04/01/25 06:00 Normal Saline 10 Ml Vial IJ 04/01/25 23:59 DIRECTED PRN Sterile Water 0 ml 04/01/25 06:00 Water,Injection,Sterile 10 Ml Vial IJ 04/01/25 23:59 DIRECTED PRN Tamsulosin HCl 0.4 mg 04/02/25 08:30 Tamsulosin 0.4 Mg Capcr PO 05/02/25 08:29 DAILY LETA Tranexamic Acid 1,300 mg 04/01/25 07:21 Tranexamic Acid 650 Mg Tab PO 05/01/25 07:20 ONCE PRN postoperative PFSH Active Problems Active Problems: Problem Status Onset Code Osteoarthritis of right hip Acute M16.11 Orthostasis Acute I95.1 Pre-syncope Acute R55 Hip osteoarthritis Acute M16.9 Weight gain Acute R63.5 Elevated PSA Acute R97.20 CAD (coronary artery disease) Chronic I25.10 Hyperlipidemia Acute E78.5 Hematuria Acute R31.9 Cataracts, bilateral Acute H26.9 History of [place] (myocardial infarction) Acute ~1993 I25.2 Medical History Medical History Dyspnea Severe aortic stenosis Resolved with valvuloplasty in 2014. Unstable angina Surgical History Surgical History History of cataract surgery Left eye: 04/08/2024 Right eye: 04/22/2024 [facility] Hx of CABG Tobacco Smoking/Tobacco Use Status: Never Alcohol Alcohol Intake: current Alcohol intake frequency: holidays/special occasions only Substance Use Substance use: Never Substance use type: does not use Vital Signs and Lab Results Vital Signs Most Recent Vital Signs in EMR: Most Recent Vital Signs Temp Pulse Resp BP Pulse Ox 36.6 C 52 L 20 146/66 H 98 04/01/25 08:40 04/01/25 08:40 04/01/25 08:40 04/01/25 08:40 04/01/25 08:40 Lab Results Complete Blood Count: WBC, (4.4-10.8) 5.60 10^3/uL 03/24/25, 11:35 RBC, (4.36-5.78) 4.03 10^6/uL L 03/24/25, 11:35 Hgb, (13.5-17.5) 12.6 g/dL L 03/24/25, 11:35 Hct, (40.0-50.0) 37.4 % L 03/24/25, 11:35 Plt Count, (130-400) 163 10^3/uL 03/24/25, 11:35 Complete Metabolic Panel: Sodium, (136-145) 141 mmol/L 03/24/25, 11:35 Potassium, (3.5-5.1) 4.4 mmol/L 03/24/25, 11:35 Chloride, (98-107) 105 mmol/L 03/24/25, 11:35 Carbon Dioxide, (21.0-32.0) 27.8 mmol/L 03/24/25, 11 :35 BUN, (7-18) 30 mg/dL H 03/24/25, 11:35 Creatinine, (0.70-1.30) 1.0 mg/dL 03/24/25, 11:35 Est GFR (CKD-EPI 2020), (mL/min/1.73m2) 75.61 03/24/25, 11:35 Calcium, (8.5-10.1) 9.8 mg/dL 03/24/25, 11:35 Glucose, (74-106) 102 mg/dL 03/24/25, 11:35 Imaging and Studies Imaging and Studies Study information below may be from another EMR and interpreted by another provider. Please see original notes in EMR for more complete details. EKG Summary: EKG PATIENT NAME: Jim Blake UNIT #: [id number] ORDERING PROVIDER: Doroteo Boss CRNA PRIMARY CARE PROVIDER: KEYON ANDERSON DO DATE/TIME OF SERVICE: 04/01/25 0956 : 1945 PERFORMING LOCATION: [facility] APPROVED REPORT Exam: Resting ECG Reason for Exam: Question new onset AF Patient Location: O HR:61 bpm ECG Measurements Heart Rate 61 AXIS CA [id number] P [id number] QRSd 98 QRS 47 QT 423 T147 QTc 428 Conclusion Atrial fibrillation... LVH with repolarization abnormalities <Electronically signed by BRITTANY PAT MD in OV> E-Sign Date: 04/01/25 E-Sign Time: 1015 Carotid Artery Summary:: Patient Name: Jim Blake Unit #: [id number] Loc: DI Ordering Provider: Keyon Anderson DO Status: REG CLI Primary Care Provider: Keyon Anderson DO Date of Exam: 08/14/24 Sex: M Admission Date: 08/14/24 : 1945 Age: 79 Exam(s) US CAROTID EXAM: US CAROTID CLINICAL HISTORY: Lightheadedness,PRESYNCOPE,R55. TECHNIQUE: Ultrasound carotids performed using grayscale, color-flow, and spectral Doppler imaging. COMPARISON: No exams were available for comparison FINDINGS: RIGHT CAROTID ARTERY: Plaque: Minimal mild noncalcified plaque at proximal internal carotid artery. Velocity elevation: None. LEFT CAROTID ARTERY: Plaque: Minimal mild multifocal plaque at the common carotid bulb and proximal internal carotid artery. Velocity elevation: None. VERTEBRAL ARTERIES: Antegrade flow. Measurements: R Bulb: 77.6cm/s PS / 14.1cm/s ED R CCA: 73.7cm/s PS / 11.5cm/s ED R ECA: 108.7cm/s PS / 6.3cm/s ED R ICA Prox: 82.8cm/s PS / 12.8cm/s ED R ICA Mid: 59.5cm/s PS / 12.8cm/s ED R ICA Distal: 47.8cm/s PS /15.4cm/s ED R Vert: 46.2cm/s PS / 12.7cm/s ED R SVR: 1.1 R DVR: 1.1 L Bulb: 66.7cm/s PS / 16.6cm/s ED L CCA: 84.6cm/s PS / 15.3cm/s ED L ECA: 74.4cm/s PS / 6.3cm/s ED L ICA Prox: 57.7cm/s PS / 14cm/s ED L ICA Mid: 57.7cm/s PS / 15.3cm/s ED L ICA Distal: 81.7cm/s PS / 16.5cm/s ED L Vert: 35.7cm/s PS / 11.4cm/s ED L SVR: 1 L DVR: 1.1 IMPRESSION: No evidence for hemodynamically significant carotid stenosis. Mild plaque bilaterally. Criteria for Carotid Stenosis: Normal: ICA PSV <125 cm/s no plaque or intimal thickening is visible. <50% stenosis: ICA PSV <125 cm/s and plaque or intimal thickening is visible. 50-69% stenosis: ICA PSV is 125-250 cm/s and plaque is visible. >70% stenosis to near occlusion: ICA PSV >250 cm/s with visible plaque and luminal narrowing. DATA REPOSITORY: Ordered By: Keyon Anderson DO CC: Dictated By: Lalita Lopes M.D. 08/14/24 104 <Electronically signed by Lalita Lopes M.D. in OV> 08/14/241048 Transcribed By: Lalita Lopes 08/14/241048 This is privileged, confidential information intended only for the provider named. Any use or distribution by any person other than this provider is strictly prohibited. If you receive this report in error, please notify us immediately at [phone] and return the original report to us at the address above. Thank-you. Anesthesia Assessment and Plan Anesthesia History Personal History: No History of Anesthesia Complications Family History: No Family History of Anesthesia Complications Exercise Tolerance Exercise Tolerance: Metabolic Equivalents>4 Pertinent Negatives Pertinent Negatives: No Symptoms of GERD, No Major Cardiovascular Symptoms or Complaints, No Major Pulmonary Symptoms or Complaints and No History of CVA/TIA Cardiac & Pulmonary Exam Cardiac Exam: Normal S1/S2 Heart Sounds Pulmonary Exam: Clear Bilateral Breath Sounds Implantable Cardiac Device Does patient have a Pacemaker or an ICD?: No Airway Exam Known Difficult Airway: No Mallampati Class: 3 Mouth Opening: Normal (> 3cm) Thyromental Distance: Greater than 3 cm Neck Range of Motion: Full ROM Neck Circumference: Normal Teeth Condition: Removable Dentures/Plates Upper, Removable Dentures/Plates Lower and Edentulous ASA Classification ASA Score: ASA 3 Emergency Case?: No NPO Status NPO Status: NPO Clears >2 hours, Solids >8 hours Anesthesia Plan Resuscitation Status: Full Code Anesthesia Technique: Spinal Anesthesia Airway Planned: Natural Airway Monitors Used: Standard Monitors Preoperative Comments:: Patient with new onset afib, cancelled today and to see PCP on
[2025-04-01 10:51] VITALS: BMI 39.0
--- NOTE | 2025-04-01 13:19 | NUR.NOTE ---
Pt surgery cancelled due to new onset A.Fib identified in pre-op. Bobby GIBBONS ursing Note:
== END 2025-04-01 08:15 | disposition home or self-care (01) ==
PROVIDERS: PCP Family Medicine; Visit Provider Student in an Organized Health Care Education/Training Program
DX: M16.11 Unilateral primary osteoarthritis, right hip (principal); Z53.09 Procedure and treatment not carried out because of other contraindication; I48.91 Unspecified atrial fibrillation; I25.10 Atherosclerotic heart disease of native coronary artery without angina pectoris; I25.2 Old myocardial infarction; E78.5 Hyperlipidemia, unspecified; Z79.899 Other long term (current) drug therapy
CPT/HCPCS: 93005; 93010; J1100; J2003; J2371; J2401; J2405; J2704

== ENCOUNTER 2025-04-03 11:28 | Outpatient (CLI) | payer MEDICARE, SELFPAY ==
--- NOTE | 2025-04-03 11:15 | RT.EKG_ITS ---
APPROVED REPORT Exam: Resting ECG Reason for Exam: Incidental finding of Afib in pre-op (anesthesia) Patient Location: O HR:54 bpm ECG Measurements Heart Rate [address] 268 P 257 QRSd 102 QRS 58 QT 428 T 134 QTc 406 Conclusion Sinus or ectopic atrial rhythm...P axis (-45,135) Mobitz 1 second-degree AV block IVCD Diffuse ST-T abnormalities
== END 2025-04-03 11:29 | disposition home or self-care (01) ==
LOC: DI.KIM 11:30
PROVIDERS: PCP Family Medicine; Visit Provider Family Medicine
DX: I48.91 Unspecified atrial fibrillation (principal)
CPT/HCPCS: 93010

== ENCOUNTER 2025-06-01 18:50 | Emergency (ER) | payer OTHER, SELFPAY ==
--- NOTE | 2025-06-01 18:45 | DI.RAD_ITS ---
Exam(s) XR PELVIS AP EXAM: XR PELVIS AP CLINICAL HISTORY: fall onto l hip. TECHNIQUE: 2D digital imaging was performed. COMPARISON: CR XR PELVIS AP from 03/24/2025 FINDINGS: Single AP view of the pelvis-hips There are no acute fractures evident in the pelvis and hips. There are significant degenerative changes in both hips evident. No osseous lesions IMPRESSION: No fractures. Advanced degenerative changes both hips. DATA REPOSITORY: RADIATION DOSE DELIVERED:
--- NOTE | 2025-06-01 18:45 | RT.EKG_ITS ---
APPROVED REPORT Exam: Resting ECG Reason for Exam: dizziness Patient Location: E HR:83 bpm ECG Measurements Heart Rate 83 AXIS [place] 252 P 0 QRSd 100 QRS 53 QT 420 T 151 QTc 495 Conclusion Narrow complex rhythm, without discrete P waves, rate 83 Borderline QTc prolongation at 495ms No STEMI T wave inversions lateral leads unchanged from priors
--- NOTE | 2025-06-01 18:45 | DI.CT_ITS ---
Exam(s) CT HEAD CERVICAL SPINE WO EXAM: CT HEAD CERVICAL SPINE WO CLINICAL HISTORY: fall, dizzy. TECHNIQUE: Imaging Protocol: Axial computed tomography images with coronal and sagittal reformatted images were created and reviewed COMPARISON: No exams were available for comparison FINDINGS: BRAIN: There are no skull fractures nor fluid in the visualized paranasal sinuses. There is no evidence of intracranial hemorrhage, mass effect, or shift of midline structures. There are no extra-axial fluid collections. The ventricles are not enlarged or shifted and there is no blood within the ventricular system nor within the basal cisterns. Symmetrical atrophy noted. There is heavy calcification the left vertebral artery at the skull base noted. There is also prominent mural calcification at the intra cavernous internal carotid arteries bilaterally. CERVICAL SPINE: There is no evidence of fracture nor listhesis. No significant prevertebral soft tissue swelling. There is chronic advanced multilevel disc disease involving each level in the cervical spinal column. There is also facet arthropathy at multiple levels including multilevel partial and full fusion of the facet joints. There is posterior osteophytic ridging at C5-6 and C6-7 levels. There is no significant facet joint malalignment. No significant osseous lesions evident. IMPRESSION: No acute intracranial findings on this noninfused CT scan of the brain.Heavy vascular calcifications the skull base noted in both the anterior posterior circulations, as described above. Advanced chronic multilevel degenerative disc disease in the cervical spine but no evidence of cervical spine fracture, malalignment, nor acute compromise of the cervical spinal canal. RADIATION DOSE DELIVERED: 1,321.28mGy.cm Total DLP DATA REPOSITORY: All CT scans at this facility are submitted to the National Radiology Data Registry (NRDR) Dose Index Registry (DIR) with the [employer] (A[employer]). RADIATION OPTIMIZATION: All CT scans at this facility use at least one of these dose optimization techniques: automated exposure control; mA and/or kV adjustment per patient size (includes targeted exams where dose is matched to clinical indication); or iterative reconstruction.
--- NOTE | 2025-06-01 18:45 | DI.RAD_ITS ---
Exam(s) XR FEMUR LT EXAM: XR FEMUR LT CLINICAL HISTORY: fall onto l hip. TECHNIQUE: 2D digital imaging was performed. COMPARISON: No exams were available for comparison FINDINGS: Two views No evidence of acute fracture or dislocation of the left hip. There are advanced degenerative changes the hip joint. Remainder of the femur appears unremarkable. Bone density is age-appropriate. No significant osseous lesions. There multiple surgical clips which are possibly related to prior saphenous vein harvesting. IMPRESSION: No fractures evident in the left hip and femur. DATA REPOSITORY: RADIATION DOSE DELIVERED:
[2025-06-01 18:50] VITALS: BP 135/84; PULSE 84; RESP 20; TEMP 36.6; O2SAT 98
--- NOTE | 2025-06-01 18:57 | ED.GENADUL_ITS ---
Discharge Plan Disposition Patient Disposition: Home Condition: Stable Discharge Details Clinical Impression: Orthostasis, Fall, Injury of hip, left Primary Care Provider: Keyon Anderson ED Provider: Ivonne Villegas Home Meds and New Rx's Prescriptions: No Action cholecalciferol (vitamin D3) 25 mcg (1,000 unit) capsule 1,000 unit PO DAILY Patient Comments: 05/04/20- pt reported med. NC acetaminophen 500 mg capsule 1,000 mg PO QAM Patient Comments: Will take second dose in the evening if needed atorvastatin 80 mg tablet 80 mg PO DAILY tamsulosin 0.4 mg capsule 0.4 mg PO DAILY aspirin [Aspir-81] 81 MG tablet,delayed release (DR/EC) 81 mg PO DAILY Patient Comments: Pt also takes BP pill but doesn't know the name or dose Discharge Instructions Instructions: Preventing Falls ED Additional Instructions: You were seen in the emergency department today for evaluation after a fall due to your baseline dizziness. In our department he had a full physical examination performed, had laboratory studies that were reassuring and had CT imaging of your head and x-rays of your hip and leg that did not show any acute injuries. You likely have fat bruising, and she is Tylenol 1000 mg every 6 hours for management of your pain. Please maintain good hydration, you did receive some fluid today for your dizziness. You should discuss with your primary care provider about any changes that need to be made to your medications to help you with your dizziness. Please follow-up with your primary care provider in the next few days to discuss this visit and any symptoms that change, worsen, or persist. Thank you for allowing us to be part of your care. HPI General Mode of arrival: EMS . Date/Time Provider Initiated Documentation: 06/01/25 18:54 . Limitations to Documentation: no limitations . Information obtained by: patient, EMS and old records reviewed . HPI Narrative: This is an 79-year-old male patient with a past medical history significant for CAD status post CABG, history of orthostasis, hyperlipidemia, presenting for evaluation of dizziness and a fall. The patient reports that for the last 6 months he has had episodes of dizziness that are worse when he moves or gets up, described as lightheadedness. He has no associated vertigo. States that tonight he began to get dizzy, and fell, landing on his left hip. He reports that he did not lose consciousness or strike his head. He states that he initially had some tingling in that area of his left hip but this has now subsided. The patient did not have any chest pain, headaches or vision changes. The patient denies weakness or numbness distal to the injury, states he has a history of osteoarthritis and degenerative changes and is actually scheduled for a right sided hip replacement. He has been eating and drinking typically for him. Related Data Home Medications ?Medication ?Instructions ?Recorded ?Confirmed aspirin 81 mg tablet,delayed 81 mg PO DAILY 11/22/14 0 06/01/25 release (Aspir-) atorvastatin 80 mg tablet 80 mg PO DAILY 01/02/2005/16 tamsulosin 0.4 mg capsule 0.4 mg PO DAILY 01/02/20 cholecalciferol (vitamin D3) 25 1,000 unit PO DAILY 06/01/25 mcg (1,000 unit) capsule acetaminophen 500 mg capsule 1,000 mg PO QAM Chronic h ip pain 09/17/24 06/01/25 (right) Allergies Allergy/AdvReac Type Severity Reaction Status Date / Time No Known Allergies Allergy Verified 06/01/25 19:18 General Stated Complaint: Fall/Non TraumaCriteria CARLEE: 3 Exam Narrative Exam Narrative: Gen: awake and alert, in no apparent distress. Appears well nourished. HEENT: PERRL, EOMs full and without nystagmus. External ears and nose normal, mucous membranes moist. Neck: Supple, full range of motion, no observable masses Lungs: No increased work of breathing CV: Heart with regular rate and rhythm. Strong and symmetrical radial pulses. Abdomen: Soft, nondistended, non-tender to palpation. No rigidity, rebound tenderness, or guarding. MSK: No joint swelling, no redness. Full ROM without limitation, no external traumatic findings. The patient does have some tenderness to palpation of the left hip overlying the lateral aspect of the buttock. C/T/L-spine nontender and without step-offs, chest wall nontender to palpation without crepitus or deformity. The pelvis is stable to AP compression. Skin: No rashes or lesions to visualized skin. Normal color, warm, and dry. Neuro: Cranial nerves II-XII intact and symmetrical bilaterally. 5/5 strength in all muscle groups x4 extremities. No sensory deficits. Ambulates with steady gait using a cane, which is baseline for him Psych: Appropriate for situation. Course Vital Signs Vital signs: Vital Signs Temperature 36.6 C 06/01/25 18:50 Pulse 84 06/01/25 18:50 Respiratory Rate 20 06/01/25 18:50 Blood Pressure 135/84 06/01/25 18:50 Pulse Oximetry 98 06/01/25 18:50 Temperature 36.6 C 06/01/25 18:50 Pulse 84 06/01/25 18:50 Respiratory Rate 20 06/01/25 18:50 Blood Pressure 135/84 06/01/25 18:50 Pulse Oximetry 98 06/01/25 18:50 Pain Level 3 06/01/25 18:50 Medical Decision Making This is an 79-year-old male patient presenting for evaluation of left hip pain after a fall due to dizziness. Differential includes but is not limited to orthostasis, vasovagal syndrome, arrhythmia, ACS, dehydration, metabolic and electrolyte derangements. The patient does take tamsulosin, and I considered medication effect. I considered hip fracture, contusion, dislocation, femur fracture. Considered intracranial hemorrhage, skull fracture, cervical spine fracture, though the patient is reassuringly without symptoms of pain or headache on my exam. He does not have any vertiginous symptoms or neurodeficits to increase my concern for stroke or mass. We obtained an EKG, which I reviewed, which shows a supraventricular rhythm with first-degree heart block, no evidence of active ischemia or significant changes compared to priors. We will obtain a CT of the head and C-spine, x-ray of the affected left femur and hip, and labs to include CBC, CMP, magnesium, troponin, and INR. I will provide the patient with a liter of IV fluids for his positional dizziness most concerning for orthostasis. -I independently interpreted the laboratory studies, which show no significant leukocytosis, new or worsening anemia, or thrombocytopenia. The chemistry panel is without evidence of electrolyte abnormality, kidney dysfunction, or liver injury. Troponin is negative feeling without increase in 1 hour delta recheck. The patient does have a very slight elevation in his BUN to 21, making his BUN to creatinine ratio just above 22 1 which may represent slight dehydration. CT scan reviewed by myself showing no intracranial hemorrhage, mass effect or other abnormalities. No cervical spine fractures identified. The patient's x- ray shows no hip or femur fracture. He was able to ambulate on that leg without significant pain and states that his pain in the left hip entirely resolved after some Tylenol. He has baseline pain in his right hip, which has known degenerative changes. During ambulation the patient reports that his dizziness has improved significantly, and I am most concerned for a hip contusion and orthostasis potentially due to mild dehydration. At this time, the patient has had a full medical evaluation and is safe for discharge to home. They are hemodynamically stable, ambulatory, and tolerating PO. They are understanding of the follow-up plan and return precautions. They left our facility without incident. Ivonne Villegas MD [facility] All Active Problems (Updated 06/01/25 @ 22:15 by Ivonne Villegas MD) Injury of hip, left (Acute) Fall (Acute) Atrial dysrhythmia (Acute) Osteoarthritis of right hip (Acute) Orthostasis (Acute) Pre-syncope (Acute) Hip osteoarthritis (Acute) Weight gain (Acute) Elevated PSA (Acute) 3.96 in December 2019 CAD (coronary artery disease) (Chronic) Hyperlipidemia (Acute) Hematuria (Acute) Cataracts, bilateral (Acute) History of [place] (myocardial infarction) (Acute ~1993) Medical History Dyspnea Severe aortic stenosis Resolved with valvuloplasty in 2014. Unstable angina Surgical History History of cataract surgery Left eye: 04/08/2024 Right eye: 04/22/2024 Replaced By [facility] Hx of CABG Family History Brother Cancer Brother Cancer Social History (Updated 03/21/25 @ 13:35 by Kiesha Garza LPN) Smoking/Tobacco Use Status: Never Smoking risk assessment performed?: Yes Alcohol Intake: current Alcohol Intake frequency: holidays/special occasions only Previous attempts at quittin Drug use: Never Substance use type: does not use Adopted: No Household members: none Housing: assisted living facility Number of Children: 3 number of grandchildren: 4 Communication Needs: Corrective Lenses Education Level: vocational Do you need help understanding health information?: Often current occupation: Retired Pets and animals: No Sexually active: No Do you think of yourself as: straight/heterosexual Current gender identity: male What is your relationship status?: How often do you talk on the phone with friends or family?: once per week How often do you get together with friends or relatives?: once per week Do you belong to any clubs or organized social groups?: yes Panel score (0-1 are the most socially isolated patients): 1 What type of physical activity do you participate in: walking Duration: 15-30 minutes/day Frequency: daily Kate/Samaritan: Orthodox Special kate needs: No Agree to transfusion: Yes Seatbelt use: always Drive intox or ride w/intox milk driver: No Do you feel safe at home: Yes (Lives in [facility]) Do you feel safe in your relationship?: Yes
[2025-06-01 19:24] LABS: Abs Immature Grans 0.00 10^3/uL (0.0-0.06); HCT 34.3 % (40.0-50.0); HGB 11.8 g/dL (13.5-17.5); Immature Grans % 0.0 %; MCH 30.9 pg (27.0-33.0); MCHC 34.4 % (32.0-36.0); MCV 90 fL (80-95); MPV 9.6 fL (8.0-11.0); Platelet Count 135 10^3/uL (130-400); RBC 3.82 10^6/uL (4.36-5.78); RDW 13.2 % (11.8-14.1); RDW-SD 43.1 fL; WBC 3.87 10^3/uL (4.4-10.8)
[2025-06-01] MEDS: Acetaminophen 500 MG TAB 1000 MG PO (19:24)
[2025-06-01 19:39] LABS: ALT 24 U/L (16-63); AST 17 U/L (15-37); Albumin 4.1 g/dL (3.4-5.0); Alkaline Phosphatase 54 U/L (46-116); Anion Gap 8.6 mmol/L (3-11); BUN 21 mg/dL (7-18); Bilirubin, Total 0.9 mg/dL (0.2-1.0); CO2 28.4 mmol/L (21.0-32.0); Calcium 9.2 mg/dL (8.5-10.1); Chloride 105 mmol/L (98-107); Estimated GFR 75.61 (mL/min/1.73m2); Glucose 136 mg/dL (74-106); Magnesium 2.1 mg/dL (1.8-2.4); Potassium 3.7 mmol/L (3.5-5.1); Sodium 142 mmol/L (136-145); Total Protein 7.0 g/dL (6.4-8.2); Troponin I 11 ng/L (<or=76)
[2025-06-01 20:21] VITALS: BP 141/69; PULSE 76; RESP 16; O2SAT 96
[2025-06-01] MEDS: Lactated Ringers 1,000 ML 1000 ML IV (20:28)
[2025-06-01 20:43] LABS: Troponin I 11 ng/L (<or=76)
--- NOTE | 2025-06-01 21:07 | DI.VRAD_ITS ---
PROCEDURE INFORMATION: Exam: CT Head Without Contrast Exam date and time: 06/01/2025 7:20 PM Age: 79 years old Clinical indication: Other: Fall, dizzy TECHNIQUE: Imaging protocol: Computed tomography of the head without contrast. COMPARISON: US CAROTID 08/14/2024 10:02 AM FINDINGS: Brain: Cerebral volume loss noted. Scattered areas of decreased attenuation in the deep periventricular white matter consistent with small vessel ischemic change. No evidence for acute intracranial hemorrhage. Cerebral ventricles: No ventriculomegaly. Paranasal sinuses: Visualized sinuses are unremarkable. No fluid levels. Mastoid air cells: Visualized mastoid air cells are well aerated. Bones: Unremarkable. No acute fracture. Soft tissues: Unremarkable. IMPRESSION: Senescent changes noted. No acute intracranial abnormality. PROCEDURE INFORMATION: Exam: CT Cervical Spine Without Contrast Exam date and time: 06/01/2025 7:20 PM Age: 79 years old Clinical indication: Other: Fall, dizzy TECHNIQUE: Imaging protocol: Computed tomography of the cervical spine without contrast. COMPARISON: US CAROTID 08/14/2024 10:02 AM FINDINGS: Bones: No acute fracture. Normal alignment. No significant disc bulge or herniation. No severe spinal canal stenosis. No significant neural foraminal narrowing. Lungs: Lung apices are normal. Vasculature: Bilateral calcified carotid plaque. Soft tissues: Unremarkable. IMPRESSION: No evidence for acute posttraumatic abnormality. Dictated and Authenticated by: Iza Kiran MD. Orderin St. Tunde Coronado MD
--- NOTE | 2025-06-01 21:22 | DI.VRAD_ITS ---
PROCEDURE INFORMATION: Exam: XR Left Femur Exam date and time: 06/01/2025 7:38 PM Age: 79 years old Clinical indication: Other: Fall onto L hip TECHNIQUE: Imaging protocol: Radiologic exam of the left femur. Views: 2 views. COMPARISON: CR XR PELVIS AP 06/01/2025 7:37 PM FINDINGS: Bones/joints: There are [id number] degenerative changes in the left hip with joint space narrowing, hypertrophic spurring. No evidence for fracture. Soft tissues: Unremarkable. Vasculature: Vascular graft noted. Other findings: Postsurgical change noted in the left groin. IMPRESSION: No evidence for acute posttraumatic abnormality. If pain persists unexplained, MRI is sensitive to characterize for occult fracture. Dictated and Authenticated by: Iza Kiran MD. Orderin St. Tunde Coronado MD
[2025-06-01 21:24] LABS: INR 1.1 (0.9-1.1); Prothrombin Time 10.7 sec (9.1-11.1)
--- NOTE | 2025-06-01 21:24 | DI.VRAD_ITS ---
PROCEDURE INFORMATION: Exam: XR Pelvis Exam date and time: 06/01/2025 7:37 PM Age: 79 years old Clinical indication: Other: Fall onto L hip TECHNIQUE: Imaging protocol: Radiologic exam of the pelvis. Views: 1 or 2 view. COMPARISON: CR XR PELVIS AP 03/24/2025 10:57 AM FINDINGS: Bones/joints: Degenerative changes noted in both hips. Alignment appears anatomic. No evidence for fracture. Soft tissues: Unremarkable. Other findings: Postsurgical change left groin. IMPRESSION: No evidence for fracture. Dictated and Authenticated by: Iza Kiran MD. Orderin St. Tunde Coronado MD
[2025-06-01 22:02] VITALS: BP 120/69; PULSE 50; RESP 16; O2SAT 97
== END 2025-06-01 22:21 | disposition home or self-care (01) ==
PROVIDERS: Emergency Provider Emergency Medicine; PCP Family Medicine
DX: S79.812A Other specified injuries of left hip, initial encounter (principal); W19.XXXA Unspecified fall, initial encounter; R42 Dizziness and giddiness; Z86.79 Personal history of other diseases of the circulatory system
CPT/HCPCS: 36415; 36416; 73552; 80053; 82962; 93005; 96360; 96361; 99284; 70450; 72125; 72170; 83735; 84484; 85025; 85610; 93010

== ENCOUNTER 2025-08-10 17:23 | Emergency (ER) | payer OTHER, SELFPAY ==
[2025-08-10] VITALS (31 sets, daily range): BP systolic 144–205; BP diastolic 66–161; PULSE 44–80; RESP 9–28; TEMP 36.6; O2SAT 96–100
--- NOTE | 2025-08-10 18:00 | DI.RAD_ITS ---
Exam(s) XR HIP PELVIS ADULT BL EXAM: XR HIP PELVIS ADULT BL CLINICAL HISTORY: left hip injury, right hip pain. TECHNIQUE: 2D digital imaging was performed of the pelvis and bilateral hips. Four images were obtained. AP pelvis and lateral views of both hips were obtained. CR PELVIS + BILATERAL HIPS from 11/16/2023 CR PELVIS + BILATERAL HIPS from 10/02/2024 CR XR PELVIS AP from 03/24/2025 CR,XR XR PELVIS AP from 06/01/2025 FINDINGS: BONES: No acute fracture is present. No bony destructive lesion is seen. JOINTS: No dislocation present. There are marked degenerative changes seen in the hips bilaterally characterized by joint space narrowing and osteophytes. SOFT TISSUE: Atherosclerotic calcification is present. There are surgical clips seen in the left thigh. IMPRESSION: 1. There is no acute fracture or dislocation. 2. Marked osteoarthritis of the hips bilaterally. 3. The preliminary [facility] report was reviewed. DATA REPOSITORY: RADIATION DOSE DELIVERED:
--- NOTE | 2025-08-10 18:00 | DI.RAD_ITS ---
Exam(s) XR CHEST 2V PA LATERAL EXAM: XR CHEST 2V PA LATERAL CLINICAL HISTORY: fall, multiple injuries TECHNIQUE: 2D digital imaging was performed of the chest. Three images were obtained. AP and lateral views were obtained. COMPARISON: CR XR CHEST 2V PA LATERAL from 03/29/2019 CR XR PORTABLE CHEST AP from 05/14/2024 FINDINGS: MEDIASTINUM: Normal. HEART: There is an aortic valve replacement. PULMONARY VASCULATURE: Normal. LUNGS: There are no focal consolidating infiltrates. PLEURAL SPACE: No pleural effusion or pneumothorax. BONE:Within normal limits for the patient's age. There are stable sternal wires. OTHER FINDINGS:Normal. IMPRESSION: 1. No acute pulmonary findings. 2. The preliminary [facility] report was reviewed. DATA REPOSITORY: RADIATION DOSE DELIVERED:
--- NOTE | 2025-08-10 18:00 | DI.CT_ITS ---
Exam(s) CT HEAD CERVICAL SPINE WO EXAM: CT HEAD CERVICAL SPINE WO CLINICAL HISTORY: fall, HI. TECHNIQUE: Imaging Protocol: Axial computed tomography images with coronal and sagittal reformatted images were created and reviewed COMPARISON: CT CT HEAD CERVICAL SPINE WO from 06/01/2025 FINDINGS: CT Head: Ventricles and Extra axial spaces: Normal in size and morphology for the patient's age. Hemorrhage: None. Cerebral parenchyma: There are areas of decreased attenuation in the white matter consistent with chronic microvascular ischemic disease. There is no evidence of an acute territorial infarct or mass effect. Midline shift: None. Brainstem/Cerebellum: Normal. Calvarium: Normal. Visualized Paranasal sinuses/Mastoids: Clear. Soft Tissues: Unremarkable. CT Cervical Spine: Bones: No acute fracture or subluxation. Age-appropriate degenerative changes are present throughout the cervical spine. Soft Tissues: Unremarkable. Lung Apices: Clear. IMPRESSION: 1. No acute intracranial process. 2. No acute fracture or subluxation in the cervical spine. 3. The preliminary [facility] report was reviewed. RADIATION DOSE DELIVERED: 1,369.07mGy.cm Total DLP DATA REPOSITORY: All CT scans at this facility are submitted to the National Radiology Data Registry (NRDR) Dose Index Registry (DIR) with the [employer] (ACR). RADIATION OPTIMIZATION: All CT scans at this facility use at least one of these dose optimization techniques: automated exposure control; mA and/or kV adjustment per patient size (includes targeted exams where dose is matched to clinical indication); or iterative reconstruction.
--- NOTE | 2025-08-10 18:00 | RT.EKG_ITS ---
APPROVED REPORT Exam: Resting ECG Reason for Exam: weakness Patient Location: E HR:52 bpm ECG Measurements Heart Rate 52 AXIS WY [id number] P [id number] QRSd 108 QRS 48 QT 474 T 139 QTc 442 Conclusion Sinus bradycardia vs atrial fibrillation, rate [address] elevation V1-V3, which was present on priors, now appears to be more biphasic in leads V2/V3 Stable T wave inversion I, aVL, V5/V6
[2025-08-10 18:27] LABS: Abs Immature Grans 0.01 10^3/uL (0.0-0.06); HCT 35.8 % (40.0-50.0); HGB 11.9 g/dL (13.5-17.5); Immature Grans % 0.2 %; MCH 30.4 pg (27.0-33.0); MCHC 33.2 % (32.0-36.0); MCV 92 fL (80-95); MPV 9.3 fL (8.0-11.0); Platelet Count 137 10^3/uL (130-400); RBC 3.91 10^6/uL (4.36-5.78); RDW 13.3 % (11.8-14.1); RDW-SD 45.0 fL; WBC 4.83 10^3/uL (4.4-10.8)
[2025-08-10 18:53] LABS: ALT 24 U/L (16-63); AST 15 U/L (15-37); Albumin 4.0 g/dL (3.4-5.0); Alkaline Phosphatase 51 U/L (46-116); Anion Gap 7.3 mmol/L (3-11); BUN 21 mg/dL (7-18); Bilirubin, Total 0.8 mg/dL (0.2-1.0); CO2 30.7 mmol/L (21.0-32.0); Calcium 8.9 mg/dL (8.5-10.1); Chloride 102 mmol/L (98-107); Estimated GFR 88.91 (mL/min/1.73m2); Glucose 102 mg/dL (74-106); Potassium 4.5 mmol/L (3.5-5.1); Sodium 140 mmol/L (136-145); Total Protein 7.2 g/dL (6.4-8.2)
[2025-08-10 18:55] LABS: Troponin I 11 ng/L (<or=76)
--- NOTE | 2025-08-10 19:15 | RT.EKG_ITS ---
APPROVED REPORT Exam: Resting ECG Reason for Exam: repeat Patient Location: E HR:47 bpm ECG Measurements Heart Rate 47 AXIS OH 267 P 0 QRSd 99 QRS 82 QT 475 T 126 QTc 421 Conclusion Sinus bradycardia, rate 47 1st degree HB, OH interval 267ms Borderline ST segment elevation V1-V3, T waves in V2 and V3 appear slightly biphasic compared to priors. No dynamic changes compared to prior Stable T wave inversions lateral leads
[2025-08-10 19:19] LABS: Glucose Negative (Negative)
--- NOTE | 2025-08-10 19:23 | DI.VRAD_ITS ---
PROCEDURE INFORMATION: Exam: CT Head Without Contrast Exam date and time: 08/10/2025 6:28 PM Age: 79 years old Clinical indication: Other: Fall, hi TECHNIQUE: Imaging protocol: Computed tomography of the head without contrast. COMPARISON: CT HEAD CERVICAL SPINE WO 06/01/2025 7:20 PM FINDINGS: Brain: Cerebral volume loss noted. Scattered areas of decreased attenuation in the deep periventricular white matter consistent with small vessel ischemic change. No evidence for acute intracranial hemorrhage. Cerebral ventricles: No ventriculomegaly. Paranasal sinuses: Visualized sinuses are unremarkable. No fluid levels. Mastoid air cells: Visualized mastoid air cells are well aerated. Bones: Unremarkable. No acute fracture. Soft tissues: Unremarkable. IMPRESSION: Senescent changes noted. No acute intracranial abnormality. PROCEDURE INFORMATION: Exam: CT Cervical Spine Without Contrast Exam date and time: 08/10/2025 6:28 PM Age: 79 years old Clinical indication: Other: Fall, hi TECHNIQUE: Imaging protocol: Computed tomography of the cervical spine without contrast. COMPARISON: CT HEAD CERVICAL SPINE WO 06/01/2025 7:20 PM FINDINGS: Bones: Status post median sternotomy. Lungs: Lung apices are normal. Soft tissues: Unremarkable. IMPRESSION: No evidence for acute posttraumatic abnormality. Dictated and Authenticated by: Iza Kiran MD. Orderin Terri Fuentes MD
[2025-08-10 19:30] LABS: C & S Indicated? No; RBC 0-2 HPF (0-2)
[2025-08-10 19:40] LABS: Troponin I 11 ng/L (<or=76)
--- NOTE | 2025-08-10 19:54 | DI.VRAD_ITS ---
PROCEDURE INFORMATION: Exam: XR Chest Exam date and time: 08/10/2025 6:43 PM Age: 79 years old Clinical indication: Other: Fall, multiple injuries TECHNIQUE: Imaging protocol: Radiologic exam of the chest. Views: 2 views. COMPARISON: CR XR CHEST 2V PA LATERAL 03/29/2019 11:07 AM FINDINGS: Lungs: Unremarkable. No consolidation. Pleural spaces: Unremarkable. No pleural effusion. No pneumothorax. Heart/Mediastinum: Unremarkable. No cardiomegaly. Vasculature: Aortic ectasia. Bones/joints: Status post median sternotomy. Status post distal clavicular resection on the right. IMPRESSION: No evidence for acute abnormality in the chest. Dictated and Authenticated by: Iza Kiran MD. Orderin Terri Fuentes MD
--- NOTE | 2025-08-10 19:59 | DI.VRAD_ITS ---
PROCEDURE INFORMATION: Exam: XR Right Hip Exam date and time: 08/10/2025 6:49 PM Age: 79 years old Clinical indication: Other: Left hip injury, right hip pain TECHNIQUE: Imaging protocol: Radiologic exam of the right hip. Views: 2 or 3 views hip with pelvis when performed. COMPARISON: No relevant prior studies available. FINDINGS: Bones/joints: There is moderate degenerative change present bilaterally in the hips. Surgical clips seen in the proximal left thigh. Soft tissues: Unremarkable. Other findings: Moderate fecal retention pattern. Dystrophic calcifications noted at the level of the right hip medially. IMPRESSION: Degenerative changes in the hips. No evidence for acute abnormality. Dictated and Authenticated by: Iza Kiran MD. Orderin Terri Fuentes MD
--- NOTE | 2025-08-10 20:12 | NUR.NOTE ---
Pt was able to ambulate normally per baseline with a walker, pt is scheduled for a hip replacement in August, J
[2025-08-10] MEDS: Acetaminophen 325 MG TAB 650 MG PO (20:37)
--- NOTE | 2025-08-11 22:25 | W.ED.GENAD ---
Discharge Plan Disposition Patient Disposition: Home Condition: Stable Discharge Details Clinical Impression: Fall, Acute hip pain, Head injury Primary Care Provider: Keyon Anderson ED Provider: Gina Murray Home Meds and New Rx's Prescriptions: Continued cholecalciferol (vitamin D3) 25 mcg (1,000 unit) capsule 1,000 unit PO DAILY Patient Comments: 05/04/20- pt reported med. NC acetaminophen 500 mg capsule 1,000 mg PO QAM Patient Comments: Will take second dose in the evening if needed finasteride 5 mg tablet 5 mg PO DAILY Qty: 90 3RF atorvastatin 80 mg tablet 80 mg PO DAILY aspirin [Aspir-81] 81 MG tablet,delayed release (DR/EC) 81 mg PO DAILY Patient Comments: Pt also takes BP pill but doesn't know the name or dose Discharge Instructions Instructions: Minor Head Injury, Adult ED, Hip Pain ED Additional Instructions: Please follow-up with orthopedics regarding your hip pain, there is no evidence of fracture today, your CAT scan of your head did not show evidence of bleed or any abnormality Take Tylenol as needed for pain Use your walker or cane with ambulation and return earlier should you have new or worsening complaints thank you Referrals: Keyon Anderson DO [Primary Care Provider, Medicine] Discharge Data Discharge Date/Time-TO BE ENTERED AT DEPARTURE: 08/10/25 21:49 HPI General Date/Time Provider Initiated Documentation: 08/10/25 17:39. HPI Narrative: Transferred this 80-year-old male presents with URI reports a fall after losing his balance at home. He went to grab his dinner and hit his head on the rn peritoneal dialysis. He states he has pain to his left hip. He denies loss of consciousness. Denies history of coagulopathy. He was unable to get himself up off the floor. He denies any chest pain or shortness of breath. He denies any additional complaints at this time. Related Data Home Medications ?Medication ?Instructions ?Recorded ?Confirmed aspirin 81 mg tablet,delayed 81 mg PO DAILY 11/22/14 08/10/25 release (Aspir-) atorvastatin 80 mg tablet 80 mg PO DAILY 01/02/20 08/10/25 cholecalciferol (vitamin D3) 25 1,000 unit PO DAILY 05/04/20 08/10/25 mcg (1,000 unit) capsule acetaminophen 500 mg capsule 1,000 mg PO QAM Chronic hip pain 09/17/24 08/10/25 (right) finasteride 5 mg tablet 5 mg PO DAILY #90 tabs 06/18/25 08/10/25 Previous Rx's ?Medication ?Instructions ?Recorded finasteride 5 mg tablet 5 mg PO DAILY #90 tabs 06/18/25 Allergies Allergy/AdvReac Type Severity Reaction Status Date / Time No Known Allergies Allergy Verified 08/10/25 17:30 General Stated Complaint: Fall/Non TraumaCriteria CARLEE: 3 Exam Narrative Exam Narrative: 80-year-old male in no acute distress no visible sign of head trauma, pupils equal round reactive to light and accommodation, no cervical tenderness on assessment, tenderness with palpation on left hip, no abdominal tenderness no rebound or guarding no CVA tenderness, GCS 15, tenderness temples right hip and left hip, no crepitus or obvious deformity Course Vital Signs Vital signs: Vital Signs Temperature 36.6 C 08/10/25 17:20 Pulse 66 08/10/25 17:20 Respiratory Rate 18 08/10/25 17:20 Blood Pressure 174/66 H 08/10/25 17:20 Pulse Oximetry 98 08/10/25 17:20 Temperature 36.6 C 08/10/25 17:20 Temperature Source Oral 08/10/25 17:20 Pulse 69 08/10/25 21:32 Pulse 70 08/10/25 21:32 Respiratory Rate 22 08/10/25 21:32 Blood Pressure 144/74 H 08/10/25 21:31 Blood Pressure Mean 97 08/10/25 21:31 Blood Pressure Position Sitting 08/10/25 17:20 Pulse Oximetry 97 08/10/25 21:32 Oxygen Delivery Method Room Air 08/10/25 17:20 Oxygen Flow Rate 0 08/10/25 17:20 Pain Level 2 08/10/25 17:20 Lab/Test Results Lab/Test Results: Laboratory Tests Range/Units 08/10/25 08/10/25 08/10/25 18:20 19:12 19:19 WBC (4.4-10.8) 10^3/uL 4.83 RBC (4.36-5.78) 10^6/uL 3.91 L Hgb (13.5-17.5) g/dL 11.9 L Hct (40.0-50.0) % 35.8 L MCV (80-95) fL 92 MCH (27.0-33.0) pg 30.4 MCHC (32.0-36.0) % 33.2 RDW (11.8-14.1) % 13.3 Plt Count (130-400) 10^3/uL 137 MPV (8.0-11.0) fL 9.3 Immature Gran % % 0.2 Neutrophils % % 55.7 Lymphocytes % % 23.2 Monocytes % % 14.9 Eosinophils % % 5.2 Basophils % % 0.8 Nucleated RBC % (0.0-0.3) % 0.0 Absolute Neutrophils (1.2-6.7) 10^3/uL 2.69 Absolute Lymphocytes (1.2-3.4) 10^3/uL 1.12 L Absolute Monocytes (0.1-0.8) 10^3/uL 0.72 Absolute Eosinophils (0.0-0.7) 10^3/uL 0.25 Absolute Basophils (0.0-0.2) 10^3/uL 0.04 Sodium (136-145) mmol/L 140 Potassium (3.5-5.1) mmol/L 4.5 Chloride (98-107) mmol/L 102 Carbon Dioxide (21.0-32.0) mmol/L 30.7 Anion Gap (3-11) mmol/L 7.3 BUN (7-18) mg/dL 21 H Creatinine (0.70-1.30) mg/dL 0.8 Est GFR (CKD-EPI 2020) (mL/min/1.73m2) 88.91 Glucose (74-106) mg/dL 102 Calcium (8.5-10.1) mg/dL 8.9 Total Bilirubin (0.2-1.0) mg/dL 0.8 AST (15-37) U/L 15 ALT (16-63) U/L 24 Alkaline Phosphatase (46-116) U/L 51 Troponin I (<or=76) ng/L 11 11 Total Protein (6.4-8.2) g/dL 7.2 Albumin (3.4-5.0) g/dL 4.0 Urine Color (Yellow) Yellow Urine Clarity (Clear) Clear Urine pH (5-8) 7.5 Ur Specific [place] (1.005-1.025) 1.015 Urine Protein (Neg-Trace) mg/dL Negative Urine Ketones (Negative) mg/dL Negative Urine Blood (Negative) Trace-intact H Urine Nitrite (Negative) Negative Urine Bilirubin (Negative) Negative Urine Urobilinogen (Up to 0.2) mg/dL 1.0 H Ur Leukocyte Esterase (Negative) Trace H Urine RBC (0-2) HPF 0-2 Urine WBC (0-5) HPF 3-5 Ur Epithelial Cells (Negative) HPF Rare Urine Crystals (Negative) HPF Negative Urine Bacteria (Negative) HPF Rare Urine Casts (Negative) LPF Negative Urine Mucus (Negative) Negative Ur Culture Indicated? No Urine Glucose (Negative) mg/dL Negative Medical Decision Making Results: CT head and cervical spine per radiology interpretation my review does not show evidence of acute abnormality, hip, pelvis, and chest x-ray per radiology interpretation my review does not show acute abnormality, diagnostic labs are baseline for patient as is his urinalysis there is no evidence of obvious UTI Assessment and plan: Patient has negative appearing imaging, he is actually ambulatory with antalgic but steady gait he does live independently but his son checks on him regularly. He does have a walker and cane at home he did ambulate well with these assistive devices and I think he stable for discharge home at this time. Return precautions reviewed and patient expressed understanding. We did offer home health to be sure that patient's home is set up for successful ambulation however he has declined this as he feels as though he has appropriate resources. Discharged home in. Quality:SDOH Health Related Social Needs: Health related social needs lonely/isolated PFSH All Active Problems (Updated 08/10/25 @ 21:27 by MATTHEW Manning) Head injury (Acute) Acute hip pain (Acute) Fall (Acute) BPH (benign prostatic hyperplasia) (Chronic) Atrial dysrhythmia (Acute) Osteoarthritis of right hip (Acute) Orthostasis (Acute) Pre-syncope (Acute) Hip osteoarthritis (Acute) Weight gain (Acute) Elevated PSA (Acute) 3.96 in December 2019 CAD (coronary artery disease) (Chronic) Hyperlipidemia (Acute) Hematuria (Acute) Cataracts, bilateral (Acute) History of [place] (myocardial infarction) (Acute ~1993) Medical History Dyspnea Severe aortic stenosis Resolved with valvuloplasty in 2014. Unstable angina Surgical History History of cataract surgery Left eye: 04/08/2024 Right eye: 04/22/2024 [facility] Hx of CABG Family History Brother Cancer Brother Cancer Social History (Updated 03/21/25 @ 13:35 by Kiesha Garza LPN) Smoking/Tobacco Use Status: Never Smoking risk assessment performed?: Yes Alcohol Intake: current Alcohol Intake frequency: holidays/special occasions only Previous attempts at quittin Drug use: Never Substance use type: does not use Adopted: No Household members: none Housing: assisted living facility Number of Children: 3 number of grandchildren: 4 Communication Needs: Corrective Lenses Education Level: vocational Do you need help understanding health information?: Often current occupation: Retired Pets and animals: No Sexually active: No Do you think of yourself as: straight/heterosexual Current gender identity: male What is your relationship status?: How often do you talk on the phone with friends or family?: once per week How often do you get together with friends or relatives?: once per week Do you belong to any clubs or organized social groups?: yes Panel score (0-1 are the most socially isolated patients): 1 What type of physical activity do you participate in: walking Duration: 15-30 minutes/day Frequency: daily Kate/Zoroastrian: Rastafarian Special kate needs: No Agree to transfusion: Yes Seatbelt use: always Drive intox or ride w/intox 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
== END 2025-08-10 21:49 | disposition home or self-care (01) ==
PROVIDERS: Emergency Provider Physician Assistant; PCP Family Medicine
DX: S09.90XA Unspecified injury of head, initial encounter (principal); M25.552 Pain in left hip; W19.XXXA Unspecified fall, initial encounter
CPT/HCPCS: 99283; 99285; 36415; 73521; 80053; 93005; 70450; 71046; 72125; 81003; 81015; 84484; 85025; 93010

== ENCOUNTER 2025-08-19 07:02 | Observation (INO) | payer OTHER, SELFPAY ==
--- NOTE | 2025-08-18 18:33 | W.ANESPRE ---
General Info Date of Service Date Performed: 08/19/25 Height: 5 ft 11 in Weight: 112.037 kg Body Mass Index (BMI): 34.4 Surgical Procedure: Operation Date: 08/19/25 07:50 Proposed Procedure Side Surgeon p Hip Total Hip Anterior, Actis Right Greg Castillo MD Meds Allergies and Home Medications Allergies Allergy/AdvReac Type Severity Reaction Status Date / Time No Known Allergies Allergy Verified 08/19/25 06:11 Home Medication Medication Instructions Recorded aspirin 81 mg tablet,delayed 81 mg PO DAILY 11/22/14 release (Aspir-) atorvastatin 80 mg tablet 80 mg PO DAILY 01/02/20 cholecalciferol (vitamin D3) 25 1,000 unit PO DAILY 05/04/20 mcg (1,000 unit) capsule acetaminophen 500 mg capsule 1,000 mg PO QAM Chronic hip pain 09/17/24 (right) finasteride 5 mg tablet 5 mg PO DAILY #90 tabs 06/18/25 multivitamin 1 tab PO DAILY 08/19/25 Current Visit Medications: Current Medications Generic Name Dose Route Start Last Admin Trade Name Simbaq PRN Reason Stop Dose Admin Acetaminophen 1,000 mg 08/19/25 06:00 Acetaminophen 500 Mg Tab PO 08/19/25 23:59 PREOP LETA Celecoxib 400 mg 08/19/25 06:00 Celecoxib 200 Mg Cap PO 08/19/25 23:59 PREOP LETA Ringer's Solution 1,000 mls @ 80 mls/hr 08/19/25 06:00 IV 08/19/25 23:59 INFUSION LETA Cefazolin Sodium/Dextrose 2 gm in 50 mls @ 100 mls/hr 08/19/25 06:00 Ancef Duplex IVPB 08/19/25 23:59 PREOP LETA Tranexamic Acid/Sodium Chloride 1,000 mg in 100 mls @ 600 mls/hr 08/19/25 06:00 IVPB 08/19/25 23:59 PREOP LETA IV Miscellaneous Supplies 1 each 08/19/25 06:00 Iv Access IV 08/19/25 23:59 DIRECTED LETA Sodium Chloride 0 ml 08/19/25 06:00 Normal Saline Flush 10 Ml Syr IV 08/19/25 23:59 PRN PRN Sodium Chloride 0 ml 08/19/25 06:00 Normal Saline 10 Ml Vial IJ 08/19/25 23:59 DIRECTED PRN Sterile Water 0 ml 08/19/25 06:00 Water,Injection,Sterile 10 Ml Vial IJ 08/19/25 23:59 DIRECTED PRN PFSH Active Problems Active Problems: Problem Status Onset Code Head injury Acute S09.90XA Acute hip pain Acute M25.559 Fall Acute W19.XXXA BPH (benign prostatic hyperplasia) Chronic N40.0 Atrial dysrhythmia Acute I49.8 Osteoarthritis of right hip Acute M16.11 Orthostasis Acute I95.1 Pre-syncope Acute R55 Hip osteoarthritis Acute M16.9 Weight gain Acute R63.5 Elevated PSA Acute R97.20 CAD (coronary artery disease) Chronic I25.10 Hyperlipidemia Acute E78.5 Hematuria Acute R31.9 Cataracts, bilateral Acute H26.9 History of [place] (myocardial infarction) Acute ~1993 I25.2 Medical History Medical History Dyspnea Severe aortic stenosis Resolved with valvuloplasty in 2014. Unstable angina Surgical History Surgical History History of cataract surgery Left eye: 04/08/2024 Right eye: 04/22/2024 [facility] Hx of CABG Tobacco Smoking/Tobacco Use Status: Never Passive smoking exposure: No Alcohol Alcohol Intake: current Alcohol intake frequency: holidays/special occasions only Substance Use Substance use: Never Substance use type: does not use Vital Signs and Lab Results Vital Signs Most Recent Vital Signs in EMR: Temp Pulse Resp BP Pulse Ox 36.4 C L 72 16 141/85 H 98 08/19/25 06:17 08/19/25 06:17 08/19/25 06:17 08/19/25 06:17 08/19/25 06:17 Lab Results Complete Blood Count: WBC, (4.4-10.8) 4.83 10^3/uL 08/10/25, 18:20 RBC, (4.36-5.78) 3.91 10^6/uL L 08/10/25, 18:20 Hgb, (13.5-17.5) 11.9 g/dL L 08/10/25, 18:20 Hct, (40.0-50.0) 35.8 % L 08/10/25, 18:20 Plt Count, (130-400) 137 10^3/uL 08/10/25, 18:20 Complete Metabolic Panel: Sodium, (136-145) 140 mmol/L 08/10/25, 18:20 Potassium, (3.5-5.1) 4.5 mmol/L 08/10/25, 18:20 Chloride, (98-107) 102 mmol/L 08/10/25, 18:20 Carbon Dioxide, (21.0-32.0) 30.7 mmol/L 08/10/25, 18:20 BUN, (7-18) 21 mg/dL H 08/10/25, 18:20 Creatinine, (0.70-1.30) 0.8 mg/dL 08/10/25, 18:20 Est GFR (CKD-EPI 2020), (mL/min/1.73m2) 88.91 08/10/25, 18:20 Calcium, (8.5-10.1) 8.9 mg/dL 08/10/25, 18:20 Albumin, (3.4-5.0) 4.0 g/dL 08/10/25, 18:20 Glucose, (74-106) 102 mg/dL 08/10/25, 18:20 Liver Function Panel: ALT, (16-63) 24 U/L 08/10/25, 18:20 AST, (15-37) 15 U/L 08/10/25, 18:20 Cardiac Panel: Troponin I, (<or=76) 11 ng/L 08/10/25 Imaging and Studies Imaging and Studies Study information below may be from another EMR and interpreted by another provider. Please see original notes in EMR for more complete details. EKG Summary: EKG PATIENT NAME: Jim Blake UNIT #: [id number] ORDERING PROVIDER: Doroteo Boss CRNA PRIMARY CARE PROVIDER: KEYON ANDERSON DO DATE/TIME OF SERVICE: 04/01/25 0956 : 1945 PERFORMING LOCATION: [facility] APPROVED REPORT Exam: Resting ECG Reason for Exam: Question new onset AF Patient Location: O HR:61 bpm ECG Measurements Heart Rate 61 AXIS MS [id number] P [id number] QRSd 98 QRS 47 QT 423 T147 QTc 428 Conclusion Atrial fibrillation... LVH with repolarization abnormalities <Electronically signed by BRITTANY PAT MD in OV> E-Sign Date: 04/01/25 E-Sign Time: 1015 Carotid Artery Summary:: Patient Name: Jim Blake Unit #: [id number] Loc: DI Ordering Provider: Keyon Anderson DO Status: REG CLI Primary Care Provider: Keyon Anderson DO Date of Exam: 08/14/24 Sex: M Admission Date: 08/14/24 : 1945 Age: 79 Exam(s) US CAROTID EXAM: US CAROTID CLINICAL HISTORY: Lightheadedness,PRESYNCOPE,R55. TECHNIQUE: Ultrasound carotids performed using grayscale, color-flow, and spectral Doppler imaging. COMPARISON: No exams were available for comparison FINDINGS: RIGHT CAROTID ARTERY: Plaque: Minimal mild noncalcified plaque at proximal internal carotid artery. Velocity elevation: None. LEFT CAROTID ARTERY: Plaque: Minimal mild multifocal plaque at the common carotid bulb and proximal internal carotid artery. Velocity elevation: None. VERTEBRAL ARTERIES: Antegrade flow. Measurements: R Bulb: 77.6cm/s PS / 14.1cm/s ED R CCA: 73.7cm/s PS / 11.5cm/s ED R ECA: 108.7cm/s PS / 6.3cm/s ED R ICA Prox: 82.8cm/s PS / 12.8cm/s ED R ICA Mid: 59.5cm/s PS / 12.8cm/s ED R ICA Distal: 47.8cm/s PS /15.4cm/s ED R Vert: 46.2cm/s PS / 12.7cm/s ED R SVR: 1.1 R DVR: 1.1 L Bulb: 66.7cm/s PS / 16.6cm/s ED L CCA: 84.6cm/s PS / 15.3cm/s ED L ECA: 74.4cm/s PS / 6.3cm/s ED L ICA Prox: 57.7cm/s PS / 14cm/s ED L ICA Mid: 57.7cm/s PS / 15.3cm/s ED L ICA Distal: 81.7cm/s PS / 16.5cm/s ED L Vert: 35.7cm/s PS / 11.4cm/s ED L SVR: 1 L DVR: 1.1 IMPRESSION: No evidence for hemodynamically significant carotid stenosis. Mild plaque bilaterally. Criteria for Carotid Stenosis: Normal: ICA PSV <125 cm/s no plaque or intimal thickening is visible. <50% stenosis: ICA PSV <125 cm/s and plaque or intimal thickening is visible. 50-69% stenosis: ICA PSV is 125-250 cm/s and plaque is visible. >70% stenosis to near occlusion: ICA PSV >250 cm/s with visible plaque and luminal narrowing. DATA REPOSITORY: Ordered By: Keyon Anderson DO CC: Dictated By: Lalita Lopes M.D. 08/14/24 104 <Electronically signed by Lalita Lopes M.D. in OV> 08/14/241048 Transcribed By: Lalita Lopes 08/14/241048 This is privileged, confidential information intended only for the provider named. Any use or distribution by any person other than this provider is strictly prohibited. If you receive this report in error, please notify us immediately at [phone] and return the original report to us at the address above. Thank-you. Anesthesia Assessment and Plan Anesthesia History Personal History: No History of Anesthesia Complications Family History: No Family History of Anesthesia Complications Exercise Tolerance Exercise Tolerance: Metabolic Equivalents>4 Cardiac & Pulmonary Exam Cardiac Exam: Heart Murmur Present Pulmonary Exam: Clear Bilateral Breath Sounds Implantable Cardiac Device Does patient have a Pacemaker or an ICD?: No Airway Exam Known Difficult Airway: No Mallampati Class: 3 Mouth Opening: Normal (> 3cm) Thyromental Distance: Greater than 3 cm Neck Range of Motion: Full ROM and Limited ROM Neck Circumference: Normal Teeth Condition: Removable Dentures/Plates Upper, Removable Dentures/Plates Lower and Edentulous ASA Classification ASA Score: ASA 3 Emergency Case?: No NPO Status NPO Status: NPO Clears >2 hours, Solids >8 hours Anesthesia Plan Resuscitation Status: Full Code Anesthesia Technique: Spinal Anesthesia Airway Planned: Natural Airway Monitors Used: Standard Monitors Preoperative Comments:: 80 yo for HAYDEN. Sig PMHx: CAD/AK (CABG 3v 1999, 2014 ), AVR (2014), BPH, dizzyness/orthostatic (occ) Never smoker. Zio: sinus, 1st degree, some Wenckebach. ECHO: LVEF 50-55%, AVR with good function, ECG: sinus Saman, 1st degree Carotid US: no sig stenosis. Discussed spinal vs general. Plan for spinal. Discussed risks of urinary retention and dizziness.
[2025-08-19] VITALS (27 sets, daily range): BP systolic 92–141; BP diastolic 58–92; PULSE 55–97; RESP 13–24; TEMP 36–37.7; O2SAT 94–99; BMI 34.4
[2025-08-19] MEDS: Acetaminophen 500 MG TAB 1000 MG PO ×3 (06:43→21:23)
[2025-08-19] MEDS: Celecoxib 200 MG CAP 400 MG PO (06:43)
[2025-08-19] MEDS: Lactated Ringers 1,000 ML 80 ML IV (06:45)
--- NOTE | 2025-08-19 07:11 | W.PREOPHP ---
Assessment and Plan Assessment and plan (1) Osteoarthritis of right hip: Status: Acute Assessment and plan: Jim is an 80-year-old male who has severe arthritis about the right hip. He has other medical comorbidities, mostly related to his bradycardia, heart block, coronary disease and recent valvuloplasty. However, these all appear to be stable. He has some gait abnormalities and balance issues at baseline but a large portion this may be coming from the hip. He is had significant improvement with pain with previous hip injection but these are no longer working. 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 He is anxious to replace the right hip. I once again reviewed the details of hip replacement. I discussed risk to include bleeding, infection, pain, stiffness, weakness, imbalance, instability, damage to nerves and vessels, damage to muscle and tendons. Despite these risk, he elects to proceed. He will be admitted for observation here in the hospital. History of Present Illness History of Present Illness Chief Complaint: Right Hip Arthritis Narrative: Jim is an 80-year-old male who have seen previously for bilateral, right worse than left, hip arthritis. He was scheduled for a right hip arthroplasty this summer but this was aborted due to a tachyarrhythmia in the preoperative area. He was evaluated by cardiology who diagnosed him with a first-degree block but did not indicate him for any other intervention. He has issues with dizziness and some bradycardia but he has adapted how he stands and walks and is done relatively well with this. Unfortunately, he did have a fall a little over a week ago when he was removing his food from the microwave and he tripped landing on his right side in his buttock. He was evaluated in the emergency department as he had difficulty rising from the floor. He had no head bleed. He had negative x-ray of his right hip. He continues to report daily pain about the right hip more so than the left side. He has had previous injections. He has been cleared by cardiology with the more recent visit at the end of June following repeat echocardiogram. Please see the cardiology note which is recorded into the medical record. Review of Systems All systems reviewed & are unremarkable except as noted in HPI and below PFSH All Active Problems Head injury (Acute) Acute hip pain (Acute) Fall (Acute) BPH (benign prostatic hyperplasia) (Chronic) Atrial dysrhythmia (Acute) Osteoarthritis of right hip (Acute) Orthostasis (Acute) Pre-syncope (Acute) Hip osteoarthritis (Acute) Weight gain (Acute) Elevated PSA (Acute) 3.96 in December 2019 CAD (coronary artery disease) (Chronic) Hyperlipidemia (Acute) Hematuria (Acute) Cataracts, bilateral (Acute) History of [place] (myocardial infarction) (Acute ~1993) Medical History Dyspnea Severe aortic stenosis Resolved with valvuloplasty in 2014. Unstable angina Surgical History History of cataract surgery Left eye: 04/08/2024 Right eye: 04/22/2024 [facility] Hx of CABG Family History Brother Cancer Brother Cancer Social History Smoking/Tobacco Use Status: Never Smoking risk assessment performed?: Yes Alcohol Intake: current Alcohol Intake frequency: holidays/special occasions only Previous attempts at quittin Drug use: Never Substance use type: does not use Details: alcohol: t-365 Adopted: No Household members: none Housing: assisted living facility Number of Children: 3 number of grandchildren: 4 Communication Needs: Corrective Lenses Education Level: vocational Do you need help understanding health information?: Often current occupation: Retired Pets and animals: No Sexually active: No Do you think of yourself as: straight/heterosexual Current gender identity: male What is your relationship status?: How often do you talk on the phone with friends or family?: once per week How often do you get together with friends or relatives?: once per week Do you belong to any clubs or organized social groups?: yes Panel score (0-1 are the most socially isolated patients): 1 What type of physical activity do you participate in: walking Duration: 15-30 minutes/day Frequency: daily Kate/Jainism: Anabaptism Special kate needs: No Agree to transfusion: Yes Seatbelt use: always Drive intox or ride w/intox chuck wagon driver: No Do you feel safe at home: Yes (Lives in [facility]) Do you feel safe in your relationship?: Yes Additional Social history: UTAP Meds Allergies and Home Medications Allergies Allergy/AdvReac Type Severity Reaction Status Date / Time No Known Allergies Allergy Verified 08/19/25 06:11 Home Medications Medication Instructions Recorded Confirmed Type aspirin 81 mg tablet,delayed 81 mg PO DAILY 11/22/14 08/19/25 History release (Aspir-) atorvastatin 80 mg tablet 80 mg PO DAILY 01/02/20 08/19/25 History cholecalciferol (vitamin D3) 25 1,000 unit PO DAILY 05/04/20 08/19/25 History mcg (1,000 unit) capsule acetaminophen 500 mg capsule 1,000 mg PO QAM Chronic hip pain 09/17/24 08/19/25 History (right) finasteride 5 mg tablet 5 mg PO DAILY #90 tabs 06/18/25 08/19/25 Rx multivitamin 1 tab PO DAILY 08/19/25 08/19/25 History Exam Const General: cooperative, healthy appearing, comfortable and no acute distress Resp Auscultation: clear to auscultation bilaterally Cardio Rate: regular rate Rhythm: abnormal rhythm Extrem Other: Evaluation of the right leg shows resolving ecchymosis throughout the majority of the leg, more so posteriorly. No skin defects. There is some mild pain to palpation over the posterior lateral thigh, IT band and hamstrings. No significant pain palpation over the knee or deep palpation of the thigh from an anterior position. Sensation intact to light touch over the femoral nerve distribution. Results Imaging Imaging Studies: Previous x-ray of the right hip performed in the emergency department on 08 August shows severe arthritis about the right hip but no new fracture or new suspicious lesions. Last Vital Signs Temp 36.4 C L 08/19/25 06:17 Pulse 72 08/19/25 06:17 Resp 16 08/19/25 06:17 BP 141/85 H 08/19/25 06:17 Pulse Ox 98 08/19/25 06:17
[2025-08-19] MEDS: ceFAZolin 2 GM/50 ML BAG IVPB (07:41)
[2025-08-19] MEDS: TRANEXAMIC ACID/SOD. CHL. 1,000 MG/100 ML BAG 600 MG IVPB (07:46)
[2025-08-19] MEDS: Ketorolac 30 MG/ML VIAL (08:04)
[2025-08-19] MEDS: EPINEPHrine 1 MG/ML AMP pres-free (08:04)
[2025-08-19] MEDS: ROPIvacaine 0.2% 200 MG/100 ML BAG (08:05)
--- NOTE | 2025-08-19 08:55 | DI.RAD_ITS ---
Exam(s) XR HIP RT IN OR EXAM: XR HIP RT IN OR CLINICAL HISTORY: Osteoarthritis of right hip TECHNIQUE: 2D and realtime digital imaging was performed. CONTRAST MATERIAL: Refer to procedure report. COMPARISON: CR,XR XR HIP PELVIS ADULT BL from 08/10/2025 FINDINGS: Fluoroscopy was provided for Dr. Castillo during the performance of a right total hip arthroplasty. Please refer to the procedure report for complete details. Ka,r=5.2 mGy IMPRESSION: RADIATION DOSE DELIVERED: 0.0 0.0 0
--- NOTE | 2025-08-19 09:07 | W.PM.OP ---
Operative Note Operative Note PRE-OP DIAGNOSIS: Right Hip Osteoarthritis POST-OP DIAGNOSIS: same PROCEDURE: Right Anterior Total Hip Arthroplasty with Intraoperative Navigation SURGEON: Greg Castillo SUPERINTENDENT COMMISSARY: Lynne Balderas ANESTHESIA TYPE: Spinal Refer to Anesthesia Record ESTIMATED BLOOD LOSS: 400 PATHOLOGY: none sent TOURNIQUET TIME: 0 COMPLICATIONS: None Patient was transported to: PACU Patient's condition: stable Implants: 1. Depuy [place] Acetabular Component, 58mm 2. Depuy Acetabular Liner, [id number] 3. Depuy Actis Standard Collared Femoral Stem, Size 8 4. Depuy Altrx Ceramic Femoral Head, Size 36+5mm Indications: I have seen Jim in clinic for symptoms of hip arthritis, confirmed with radiographic findings. He has exhausted nonoperative methods and was having significant limitations in daily function and desired better function and less pain. I discussed the technical details of a hip replacement. I explained the risks of the procedure to include, but not limited to, bleeding, infection, pain, stiffness, fracture, damage to nerves and vessels, damage to muscles and tendons, loosening, instability, leg length inequality, need for repeat procedure, blood clot and cardiopulmonary demise. Despite these risks, Jim elected to proceed. Findings: There was significant signs of arthritis throughout the hip with large osteophytes and complete loss of cartilage over the femoral head and chondromalacia within the acetabulum. There also was significant synovitis seen within the hip itself. Procedure Description: Jim was greeted in the preoperative holding area where the correct side was identified and marked. The consent was reviewed with the patient and signed. The history and physical was updated. All questions were answered. He was taken back to the operating room. A spinal anesthestic was then administered. The feet were wrapped with cast padding and Coban and then placed into the boot liners and then into the boots. Care was taken to protect the skin and make sure the heels were fully down and the boots were stable. The patient was then positioned onto the HANA table. Both legs were held in a neutral position. SCDs were applied. The patient was then slid down onto a peroneal post. Prophylactic antibiotics in the form of Cefazolin were administered. 1g of Tranxemic Acid was given intravenously within 30 minutes of incision. The right leg was then prepped with Chloraprep and draped in a standard fashion. A second prep with Chloraprep was performed prior to placement of a shower-curtain type drape with Iodine impregnated skin protection. A timeout to confirm correct identity, side and site, procedure, allergies, anesthesia, and medical concerns was performed. An obliquely oriented incision was made starting lateral to the ASIS and running distal over the Tensor Fascia Kellie (TFL) muscle belly toward the fibular head, approximately 10cm. The skin and soft tissue was dissected sharply, through Sana´s fascia, and to the fascia of the TFL. With the fascia and superior border of the IT band identified, the fascia was incised with a new knife just above any perforators from the IT band. The TFL muscle belly was bluntly dissected away from the fascia and moved laterally. The fat between TFL and rectus was identified to ensure the dissection was not within the TFL. Blunt dissection created space between abductors and the capsule and retractor was placed over the lateral femoral neck. The fibers of the rectus femoris tendon were identified and these were freed from the anterior capsule. A second cobra retractor was placed around the medial femoral neck. The TFL was further retracted laterally to show the deep fascia. Careful dissection through this layer identified three main crossing vessels of the lateral femoral circumflex. These were cauterized in multiple locations and then cut without any noticeable bleeding. The TFL was further released bluntly from the deep fascia to expose anterior hip capsule and fat The soft tissue orthopaedic retractor was then placed beneath the TFL and against sartorius and medial soft tissues to protect and retract the soft tissues. A T-capsulotomy was then performed starting at the superior lateral acetabulum and moving distally to the intertrochanteric ridge. These capsular flaps were tagged with a No. 1 Vicryl and elevated from within. The capsular flaps were released to the shoulder of the lateral neck and to the lesser trochanter to give excellent visualization of the proximal femur. A neck osteotomy was performed using an oscillating saw based on preoperative templates. This cut started in the shoulder and of the lateral neck and exited medially. The saw was at all times directed medially to avoid injury to the greater trochanter. Gross traction was applied to the leg and the osteotomy opened. The femoral head was removed with a corkscrew, making sure to protect the TFL on its exit. Traction was released after head removal. This was measured on the back table to determine the starting reamer size. Portions of the rectus obscuring visualization were minimally elevated off the superior acetabulum. An anterior retractor was placed over the anterior wall between capsule and labrum and attached to the Gripper retraction system. The femur was rotated to 90 degrees and medial capsule was fully released until the lesser trochanter was palpable and visible; the femur was returned to 30 degrees. A posterior retractor was placed similarly between capsule and labrum. This provided excellent visualization. The contents of the cotyloid fossa were removed with electrocautery and the labrum was removed with a knife. There was a notable floor osteophyte. There was significant chondromalacia of the superior acetabulum. There is also significant mount of synovitis which was resected from within the hip. Acetabular reaming began with a 53mm reamer. This first reaming was directed anterior to posterior and medial to get down to the true floor. This was inspected and reamed until the true floor was reached. The anterior retractor was then released and entry and exit was provided by traction on the capsular flaps. I then reamed sequentially up to a 58mm reamer where good fit was obtained. The larger reamers were oriented based on anatomical reference of the anterior and lateral anthony to ensure proper abduction and anteversion. Positioning and size was confirmed with the fluoroscopy. A 58mm Depuy [place] acetabular component was selected. The acetabulum was reamed around the periphery with the selected acetabular size to prevent a rim fit. The deep tissues were irrigated. The acetabular component was then impacted in a position of about 40-45 degrees of abduction and 15-20 degrees of anteversion, using the patient´s anatomy as the ultimate landmark. Fluoroscopy was used to confirm this. There was excellent director voice of the acetabular component and the inserting handle was removed. The acetabular liner, Depuy [id number] polyethylene liner, was inserted and lined up with the tines of the acetabular component. There was no soft tissue interposition. The liner was then impacted into position and confirmed to be well-seated. A portion of the saad-articular cocktail was then injected around the acetabulum into the capsule and periosteum. This cocktail consisted of 123mg of Ropivacaine, 0.25mg of Epinephrine, 0.04mg of Clonidine, and 15mg of Ketorolac, diluted to 50cc. The leg was rotated to 120 degrees. Any remaining medial capsule was released until the lesser trochanter was easily palpable. A retractor was placed medially. The lateral capsule was further released into the shoulder to allow access to the greater trochanter. A Church retractor was placed over the greater trochanter which allowed the trochanter to flip in front of the capsule for excellent exposure. The leg was brought down into maximal extension and 20 degrees of adduction while ensuring there was no impingement on the acetabulum. Any remnant capsule within the trochanter was released. Piriformis and obturator externis were identified and protected. There was excellent access to the proximal femur. The lateral neck remnant was removed with a rongeur. A blunt canal probe was used to identify the canal and trajectory for later broaching. A box osteotome initiated the broach course. A small curved rasp and a curved curette were used to work laterally. Broaching then began with a starter Actis broach. This was inserted manually around the trochanter and into the canal before mallet blows. The broach was seated to a few millimeters below the cut level based on the neck cut and the preoperative template. Sequential broaching was continued with the Privaliase pneumatic broaching device until a tight fit was obtained with good rotational control of the femur. A trial standard neck was inserted along with a +1.5 trial head. The leg was brought out of extension and adduction and then reduced with traction and internal rotation. The leg was stable anteriorly in a position of 30 degrees of extension and 90 degrees of external rotation. Fluoroscopy was used to ensure there was no fracture and the stem was seated well. Leg lengths were checked with an AP pelvis and pelvic reference points. [employer] navigation system was used to confirm appropriate positioning and leg length and offset. Once content with the desired offset and leg lengths, the leg was brought back into extension, external rotation and adduction. The periosteum and surrounding tissue was injected with remaining portion of the saad-articular cocktail. The proximal femur was irrigated as well as the deep tissues. The [employer] Actis standard collared stem, size 8, was then manually inserted into the proximal femur making sure to control rotation. It was then malleted into position with light blows, giving breaks to allow bone expansion and decrease risk of fracture. The selected Depuy Altrx Ceramic Head, size 36+5mm, was then placed onto the clean and dry trunnion and secured with impaction onto the tapered fit. The leg was brought back out of extension and adduction and reduced with traction and internal rotation. Stability was confirmed with no shuck at 90 degrees of external rotation and 30 degrees of extension. No impingement through range of motion arc. Final x-ray images were obtained with fluoroscopy to confirm adequate positioning and no intraoperative fracture. The deep tissues were thoroughly irrigated with Surgiphor, betadine solution. This was allowed to sit in the wound for 3 minutes before being thoroughly irrigated out with normal saline. The capsule was then reapproximated with the previously placed sutures and the indirect head of the rectus was inspected and reapproximated with a #1 Vicryl. The TFL fascia was finally closed with a No. 2 Stratafix, barbed suture. Deep tissues were then reapproximated with 0 Vicryl and a running 2-0 Vicryl. The skin was closed with a running 4-0 Monocryl in a subcuticular fashion. This was reinforced with skin glue. A Mepilex silver dressing was applied. At the end of the case, all counts were correct. Jim was transferred to the hospital bed without difficulty and suffering no apparent complication. He has a good prognosis. Physical therapy will start today and without restrictions, weight-bearing as tolerated. Aspirin 81mg BID will be used for DVT prophylaxis. Date of Procedure: 08/19/25
[2025-08-19] MEDS: fentaNYL 100 MCG/2 ML VIAL IVP ×3 (09:22→09:46)
--- NOTE | 2025-08-19 09:34 | W.ANESPOSTOP ---
Postoperative Evaluation Date, Time and Location Date Performed: 08/19/25 Time Performed: 09:34 Patient Location: PACU Vital Signs Most Recent Imported Vital Signs: Most Recent Vital Signs Temp Pulse Resp BP Pulse Ox 37.6 C H 85 16 127/92 H 96 08/19/25 09:21 08/19/25 09:25 08/19/25 09:25 08/19/25 09:21 08/19/25 09:25 Pain Score Most Recent Pain Score: Most Recent Pain Score Pain Level 8 08/19/25 09:18 Assessment Mental Status: Awake (Alert & Oriented to Patient Baseline) Airway and Respiratory Function: Patent airway with normal (patient baseline) respiratory exam Cardiovascular Function: Hemodynamically Stable Hydration Status: Adequately Hydrated Nausea & Vomiting: No Nausea or Vomiting Pain: Pain is Moderate or Severe Postoperative Pain Management: Pain being addressed with medication Peripheral Nerve Block: Patient did not receive a nerve block
[2025-08-19] MEDS: Tranexamic Acid 650 MG TAB 1300 MG PO (10:25)
--- NOTE | 2025-08-19 14:30 | PT.INIE ---
PT Notes Visit Reasons: Right hip DJD Physical Therapy Inpatient Initial Evaluation Date: 08/19/2025 Referring Doctor: MATTHEW Camacho PT Orders: PT CONSULT: S/p Ortho surgery Precautions: Fall. Standard. WBAT through the right LE with AD. Patient Profile/Admitting Diagnosis: Jim is an 80-year-old male with degenerative joint disease of the right hip status post right anterior total hip arthroplasty on postoperative day 0. PMHX: All Active Problems Head injury (Acute) Acute hip pain (Acute) Fall (Acute) BPH (benign prostatic hyperplasia) (Chronic) Atrial dysrhythmia (Acute) Osteoarthritis of right hip (Acute) Orthostasis (Acute) Pre-syncope (Acute) Hip osteoarthritis (Acute) Weight gain (Acute) Elevated PSA (Acute) 3.96 in December 2019 CAD (coronary artery disease) (Chronic) Hyperlipidemia (Acute) Hematuria (Acute) Cataracts, bilateral (Acute) History of CT (myocardial infarction) (Acute ~1993) Medical History Dyspnea Severe aortic stenosis Resolved with valvuloplasty in 2014.Unstable angina Surgical History History of cataract surgery Left eye: 04/08/2024 Right eye: 04/22/2024 [facility] Hx of CABG Social History/Home Situation: Lives on the third floor of the [facility]. Utilizes 3 steps to get into the building using his 4-wheeled walker. Able to walk from his apartment and down to the basement for his meals. Son does laundry. Equipment Owned/DME: [employer] Subjective: Reported 5–6/10 pain in the right hip at rest and with weight bearing. Denied headache, chest pain, and lightheadedness throughout session. Objective: General Observation: Resting in bed. Nurse Donnell doing assessment for patient. Mental Status: Alert and oriented as to person, place, time, and purpose. Able to pay attention, focus, and respond appropriately. Pain: As above Vital Signs: 98/67 mmHg, 95% SaO2 on RA, 87 bpm in supine prior to mobility assessment ROM: Right Lower Extremity: Hip flexion WFL. Hip abduction WFL. Knee flexion WFL. Ankle dorsiflexion WFL. Ankle plantarflexion WFL. Left Lower Extremity: Hip flexion WFL. Hip abduction WFL. Knee flexion WFL. Ankle dorsiflexion WFL. Ankle plantarflexion WFL. Strength: Right Lower Extremity: Hip flexors 4-/5. Hip abductors 4-/5. Knee flexors 4/5. Knee extensors 4-/5. Ankle dorsiflexors 4/5. Ankle plantarflexors 4/5. Left Lower Extremity: Hip flexors 4+/5. Hip abductors 4+/5. Knee flexors 4+/5. Knee extensors 4+/5. Ankle dorsiflexors 4+/5. Ankle plantarflexors 4+/5. Bed Mobility/Transfers: Moderate cueing provided for use of B hands as needed for support, movement sequence, AD management, and posture to reduce fall risk and minimize pain report Supine to sit standby assist with FWW Sit to stand contact-guard assist with FWW Stand to sit with standby assist with FWW Bed to toilet seat contact-guard assist with FWW Toilet seat to bedside recliner contact-guard assist with FWW Gait: Facilitated safe and correct performance of level surface ambulation covering a distance of 15 feet +20 feet using bariatric front wheeled walker with step to gait pattern requiring moderate verbal cueing for increased step length and height, AD management, weight distribution, and increased flexion on the right LE during swing phase to minimize pain reported reduce fall risk. Contact-guard assist provided. Stairs: Not assessed Balance: Static Sitting: Normal Dynamic Sitting: Normal Static Standing: Fair Dynamic Standing: Fair Special Tests: Mobility Limitations Standardized Measure [facility] AM-PAC 6 clicks Basic Mobility Inpatient Short Form: Raw Score: 18 CMS Score: 47% deficit Informed Consent/Education: Patient was instructed in purpose of PT consult and plan of care. Agreeable to proceed with established PT POC to achieve personal goals. Trained patient with correct performance of exercises below to maximize motor control, joint flexibility, soft tissue extensibility of the R hip musculature to facilitate return to independent functional mobility performance. Access Code: [email or web address] URL: [email or web address] Date: 08/19/2025 Prepared by: Aislinn Silver Exercises - Gluteal Sets - 1 x daily - 7 x weekly - 1 sets - 10 reps - 5 hold - Supine Heel Slide - 1 x daily - 7 x weekly - 1 sets - 10 reps - 5 hold - Supine Ankle Pumps - 1 x daily - 7 x weekly - 1 sets - 10 reps - 5 hold - Seated March - 1 x daily - 7 x weekly - 1 sets - 10 reps - 5 hold - Seated Long Arc Quad - 1 x daily - 7 x weekly - 1 sets - 10 reps - 5 hold Assessment: Patient required the use of a front wheeled walker along with moderate verbal cueing for all mobility ADL performance to maximize independence and reduce fall risk. Also for this session, patient was assisted from edge of bed to toilet and back to chair for safety. Patient presents with clinical signs and symptoms consistent with current/admitting diagnoses that have resulted to mobility limitations, gait instability, generalized weakness, and overall ADL decline as demonstrated by the following impairment level findings: 1. Decreased strength to R hip and knee yeah major muscle groups 2. Impaired standing balance 3. Impaired activity tolerance 4. Pain at surgical site to 5–8/10 at rest and with weight bearing Impairments are contributing to the following functional limitations: 1. Decline in bed mobility skills 2. Decline in transfer skills 3. Difficulty with ambulation without assistive device and physical assistance 4. Increased completion time for mobility ADL performance 5. Increased risk for falls 6. Difficulty with managing steps alone safely Patient is assessed as a [id number] moderate complexity based on the following: History: 80-year-old male with past medical history as indicated above Examination: Demonstrable impairment in strength, balance, and mobility level with underlying impairments and functional limitations as exhibited above as well as deficit score of 47% utilizing the [facility] Mobility Inpatient Short Form Presentation: Evolving Decision Makin moderate complexity Goals: Goals X1 week 1. Supine-Sit independent 2. Sit-Supine independent 3. Sit-Stand independent 4. Stand-Sit independent with FWW 5. Bed-Chair independent with FWW 6. Chair-Bed independent with FWW 7. Independent gait on level surface with use of FWW for at least 300 feet without report of pain nor dyspnea 8. Independent stair negotiation while holding onto 1 rail for at least 5 steps without report of pain nor dyspnea 9. Independent with home exercise program 10. Good static and dynamic standing balance/tolerance Plan of Care/Treatment Plan: 1-2x/day, 7 days/week x 1 week. Plan of care has been reviewed with the RECREATION TEACHER providing the service under Physical Therapy direction. Initiate Physical Therapy intervention for pain management as needed, strengthening, bed mobility, transfers, gait, stairs, balance training, and use of assistive device. DISCHARGE RECOMMENDATIONS: Home when medically cleared by orthopedic surgeon. Recommend outpatient PT services in order to optimize functional mobility outcomes and facilitate return to independent community ambulation without an assistive device. TREATMENT CODE/TIME: 35985 x 20 minutes for 1 unit, 41292 x 25 minutes for 2 units (14:30–15:15). Thank you for the opportunity to participate in the care of this patient. Aislinn Sheppard PT, DPT, CLT [facility] [place], [place]
[2025-08-19] MEDS: ceFAZolin 1 GM/50 ML BAG IVPB ×2 (15:30→21:24)
[2025-08-19] MEDS: Normal Saline Flush 10 ML SYR IV ×2 (15:31→21:24)
--- NOTE | 2025-08-19 18:40 | W.PC.ACHO ---
Registration Status: ADM SHAYE Primary Language: Preferred Language: Welsh Medical / Surgical History (Last Reviewed 08/19/25 @ 07:14 by Greg Castillo MD) Dyspnea Severe aortic stenosis Unstable angina (Last Reviewed 08/19/25 @ 07:14 by Greg Castillo MD) History of cataract surgery Hx of CABG Most Recent Vital Signs Temperature 36.4 C L 08/19/25 18:05 Temperature Source Temporal Artery Scan 08/19/25 18:05 Pulse 86 08/19/25 18:05 Pulse Rhythm Regular 08/19/25 14:02 Pulse 79 08/19/25 09:46 Respiratory Rate 17 08/19/25 18:05 Respiratory Effort Normal 08/19/25 14:02 Respiratory Depth Normal 08/19/25 14:02 Respiratory Pattern Normal 08/19/25 14:02 Blood Pressure 100/58 L 08/19/25 18:05 Blood Pressure Mean 72 08/19/25 18:05 Pulse Oximetry 95 08/19/25 18:05 Respiratory End-tidal CO2 33 08/19/25 09:46 Oxygen Delivery Method Room Air 08/19/25 16:49 Oxygen Flow Rate 0 08/19/25 16:49 Pain Level 0 08/19/25 18:05 Comment See Vital sign documentation 08/19/25 14:02 Allergies No Known Allergies Allergy (Verified 08/19/25 06:11) Active Medications Generic Name Dose Route Start Last Admin Trade Name Freq PRN Reason Stop Dose Admin Acetaminophen 1,000 mg 08/19/25 14:00 08/19/25 15:29 Acetaminophen 500 Mg Tab PO 09/18/25 13:59 1,000 mg TID LETA Administration Cefazolin Sodium/Dextrose 1 gm in 50 mls @ 100 mls/hr 08/19/25 14:00 08/19/25 17:39 Ancef Duplex IVPB 08/20/25 06:29 Infused Q8H LETA Infusion Sodium Chloride 0 ml 08/19/25 06:00 08/19/25 15:31 Normal Saline Flush 10 Ml Syr IV 08/19/25 23:59 20 ml PRN PRN Administration IV IV Catheter Type [Left Wrist] Saline Lock IV Catheter Gauge [Left Wrist] 20 Diet Orders Category Date Time Status Heart Healthy Eating [DIET] Nutrition 08/19/25 Lunch Active Intake and Output - 24 Hour Total 07/22/25 14:58 thru 08/19/25 17:39 Intake Total 852.667 Output Total 400 Balance 452.667 Weight 111.72 kg Intake: IV 852.667 Output: Estimated Blood Loss 400 Other: Emesis Description None Falls Risk Assessment History of Falls Previous History 08/19/25 14:02 Contributing Factors Unstable,Impairments 08/19/25 14:02 Ambulatory Aids Uses ambulatory device 08/19/25 14:02 Tubes/Lines None 08/19/25 14:02 Gait Evaluation W/no contributing factors 08/19/25 14:02 Cognition No cognitive impairment 08/19/25 14:02 Fall Total Score 46 08/19/25 14:02 Level of Risk Moderate Risk 08/19/25 14:02 v v v v v v v v v Sending and/or Receiving Nurses: Please use comment section below to note any information pertinent to the patient hand-off not included above. Information / Comments: Report received from:5 PACU Nurse.
[2025-08-19] MEDS: Atorvastatin 40 MG TAB 80 MG PO (21:23)
[2025-08-19] MEDS: Aspirin E.C. 81 MG TABEC PO (21:23)
[2025-08-20] MEDS: Normal Saline Flush 10 ML SYR (06:19)
[2025-08-20] MEDS: ceFAZolin 1 GM/50 ML BAG IVPB (06:19)
[2025-08-20] MEDS: Pantoprazole 40 MG TABCR PO (07:37)
[2025-08-20] MEDS: Aspirin E.C. 81 MG TABEC PO (07:37)
[2025-08-20] MEDS: Acetaminophen 500 MG TAB 1000 MG PO (07:37)
[2025-08-20] MEDS: Finasteride 5 MG TAB PO (07:39)
[2025-08-20] MEDS: Cholecalciferol (Vitamin D3) 1,000 UNIT TAB 1000 UNITS PO (07:40)
[2025-08-20] MEDS: Meloxicam 15 MG TAB PO (07:40)
[2025-08-20] MEDS: Dexamethasone 4 MG TAB PO (07:40)
[2025-08-20 07:58] VITALS: BP 107/58; PULSE 51; RESP 16; TEMP 36.1; O2SAT 100
[2025-08-20 07:58] LABS: HCT 30.1 % (40.0-50.0); HGB 10.2 g/dL (13.5-17.5); MCH 31.4 pg (27.0-33.0); MCHC 33.9 % (32.0-36.0); MCV 93 fL (80-95); MPV 9.2 fL (8.0-11.0); Platelet Count 169 10^3/uL (130-400); RBC 3.25 10^6/uL (4.36-5.78); RDW 13.9 % (11.8-14.1); RDW-SD 46.5 fL; WBC 9.11 10^3/uL (4.4-10.8)
[2025-08-20 08:14] LABS: Anion Gap 6.8 mmol/L (3-11); BUN 28 mg/dL (7-18); CO2 29.2 mmol/L (21.0-32.0); Calcium 8.8 mg/dL (8.5-10.1); Chloride 103 mmol/L (98-107); Glucose 114 mg/dL (74-106); Potassium 4.6 mmol/L (3.5-5.1); Sodium 139 mmol/L (136-145)
--- NOTE | 2025-08-20 09:02 | INITIAL_ITS ---
Date of service: 08/20/25 Time of Service: 09:02 Care Management Initial Assmt Initial Assessment Reason for Hospitalization: total hip Functional Status/Living Situation Patient Presentation: Jim was sitting up in a chair, fully dressed, when CM met with him.He informed CM that he will be discharging home today and needs a ride. It appears that [facility] wheelchair van will be the most appropriate vehicle as Jim just has hip surgery and might have difficulty getting in/out of some cars. He is feeling well and looking forward to going home. Jim lives alone in an apartment at [facility].He has 3 sons, 6 grandchildren and 2 great grandchildren. He gets Meals on Wheels provided there and uses [facility] for transprtation Jim will have new home health PT. 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 [employer] Instrumental Activities of Daily Living (ADLs): Independent and Requires support with Transportation Medications Medication Management: No Issues/Barriers identified Advance Directives Advance Directives: Do you have an Advance Directive: Y , 15:12 AD On File at [facility]: Y 05/24/24, 15:12 Date Asked 08/19/25 08/19/25, 13:57 AD Date Reviewed 08/19/25 08/19/25, 13:57 COLST On File at [facility] COLST Date Scanned Code Status Resuscitation Status Full Code Insurance Coverage/Financial Issues Insurance: [place] Care Team Visit Care Team Role Provider Type Keyon Anderson, Primary Care Provider OSTEOPATHIC DOCTOR InPatient Tim Miller Other Providers OTHER Greg Castillo MD Admit Provider [facility] STAFF PHYSICIAN Attending Provider Discharge Potential Discharge Needs: PCP F/U Appt and Surgical F/U Appt Anticipated Barriers to Discharge: None Identified Patient/Family Education Needs: Review discharge instructions, discuss Ask Me Three Transportation: Private vehicle Plan: Anticipate that Jim will be discharged home with no new service when medically cleared. He will follow up with his surgeon, PCP and plan of care and transport with family. CM will follow and continue to assess for discharge needs. Social Determinants of Health Screening Social Determinants of health last assessed in clinic: 08/20/25 Will the Patient Participate in the Screening?: Yes Do you worry about having a steady place to live?: no Problems where you live: no known problems In the past 12 months, have you had to go without electric, gas, oil or water in your home?: no 1. Within the past 12 months, we worried whether our food would run out before we got money to buy more.: Never true 2. Within the past 12 months, the food we bought just didn't last and we didn't have money to get more.: Never true Has lack of transportation kept you from medical appointments or from doing things needed for daily living?: no Has anyone in your life made you feel unsafe or unsupported?: no How hard is it for you to pay for the very basics like food, housing, medical care, and heating? Would you say it is:: Not hard at all Do you want help finding or keeping work or a job?: I do not need or want help If for any reason you need help with day-to-day activities such as bathing, preparing meals, shopping, managing finances, etc., do you get the help you need?: I don’t need any help How often do you feel lonely or isolated from those around you?: Sometimes Do you speak a language other than Chinese at home?: No Comments: Pt reports some isolation and would be open to having intervention at time of discharge. Health Related Social Needs Health related social needs: feeling lonely/isolated (Z60.8) Health related social needs details: Pt reports some isolation and would be open to having intervention at time of discharge. [facility] All Active Problems (Updated 08/19/25 @ 08:48 by Samantha Dixon RN) History of total right hip replacement (Acute 08/19/25) Head injury (Acute) Acute hip pain (Acute) Fall (Acute) BPH (benign prostatic hyperplasia) (Chronic) Atrial dysrhythmia (Acute) Orthostasis (Acute) Pre-syncope (Acute) Hip osteoarthritis (Acute) Weight gain (Acute) Elevated PSA (Acute) 3.96 in December 2019 CAD (coronary artery disease) (Chronic) Hyperlipidemia (Acute) Hematuria (Acute) Cataracts, bilateral (Acute) History of [place] (myocardial infarction) (Acute ~1993) Medical History Dyspnea Severe aortic stenosis Resolved with valvuloplasty in 2014. Unstable angina Surgical History History of cataract surgery Left eye: 04/08/2024 Right eye: 04/22/2024 [facility] Hx of CABG Family History Brother Cancer Brother Cancer Social History Smoking/Tobacco Use Status: Never Smoking risk assessment performed?: Yes Alcohol Intake: current Alcohol Intake frequency: holidays/special occasions only Previous attempts at quittin Drug use: Never Substance use type: does not use Details: alcohol: t-365 Adopted: No Household members: none Housing: apartment Number of Children: 3 number of grandchildren: 4 Communication Needs: Corrective Lenses Education Level: vocational Do you need help understanding health information?: Often current occupation: Retired Pets and animals: No Sexually active: No Do you think of yourself as: straight/heterosexual Current gender identity: male What is your relationship status?: How often do you talk on the phone with friends or family?: once per week How often do you get together with friends or relatives?: once per week Do you belong to any clubs or organized social groups?: yes Panel score (0-1 are the most socially isolated patients): 1 What type of physical activity do you participate in: walking Duration: 15-30 minutes/day Frequency: daily Kate/Protestant: Oriental Orthodox Special kate needs: No Agree to transfusion: Yes Seatbelt use: always Drive intox or ride w/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
--- NOTE | 2025-08-20 09:15 | PTTR_ITS ---
PT Notes Visit Reasons: Right hip DJD Physical Therapy Inpatient Treatment Note Date: 08/20/2025 Precautions: Fall. Standard. WBAT through the right LE with AD. Subjective: Reported 3-4/10 pain in the right hip at rest and with weight bearing. Denied headache, chest pain, and lightheadedness throughout session. Objective: General Observation: Resting in bed. Nurse Donnell doing assessment for patient. Mental Status: Alert and oriented as to person, place, time, and purpose. Able to pay attention, focus, and respond appropriately. Pain: As above Vital Signs: 124/65 mmHg, 98% SaO2 on RA, 71 bpm in supine prior to mobility assessment Bed Mobility/Transfers: Moderate cueing provided for use of B hands as needed for support, movement sequence, AD management, and posture to reduce fall risk and minimize pain report Supine to sit standby assist with FWW Sit to stand stand by assist with FWW Stand to sit with standby assist with FWW Bed to toilet seat contact-guard assist with FWW Toilet seat to bedside recliner contact-guard assist with FWW Gait: Facilitated safe and correct performance of level surface ambulation covering a distance of 200 feet using bariatric front-wheeled walker with step-to gait pattern requiring minimal verbal cueing for increased step length and height, AD management, weight distribution, and increased flexion on the right LE during swing phase to minimize pain reported reduce fall risk. Contact-guard assist provided. Stairs: Guided patient with safe and correct negotiation of 6 x 4-inch steps and 4 x 6- inch steps while holding onto B rails with stand by assist and minimal verbal cueing for limb movement sequence, posture, AD management, weight distribution to minimize pain report and reduce fall risk. Balance: Static Sitting: Normal Dynamic Sitting: Normal Static Standing: Fair Dynamic Standing: Fair THERA EX: Reviewed correct performance of exercises below to maximize motor control, joint flexibility, soft tissue extensibility of the R hip musculature to facilitate return to independent functional mobility performance. Access Code: [email or web address] URL: [email or web address] Date: 08/19/2025 Prepared by: Aislinn Sheppard Exercises - Gluteal Sets - 1 x daily - 7 x weekly - 1 sets - 10 reps - 5 hold - Supine Heel Slide - 1 x daily - 7 x weekly - 1 sets - 10 reps - 5 hold - Supine Ankle Pumps - 1 x daily - 7 x weekly - 1 sets - 10 reps - 5 hold - Seated March - 1 x daily - 7 x weekly - 1 sets - 10 reps - 5 hold - Seated Long Arc Quad - 1 x daily - 7 x weekly - 1 sets - 10 reps - 5 hold Assessment: Patient demonstrated safe and correct use of 4WW on level surfaces with more stability than with the front-wheeled walker. Pain level has abated and patient was able to tolerate more activities with shorter period of rests. DISCHARGE RECOMMENDATIONS: Home when medically cleared by orthopedic surgeon. Recommend outpatient PT services in order to optimize functional mobility outcomes and facilitate return to independent community ambulation without an assistive device. TREATMENT CODE/TIME: 58151 x 20 minutes for 1 unit, 08457 x 14 minutes for 1 unit (09:15–09:49).
--- NOTE | 2025-08-20 10:20 | DSE_ITS ---
Date of service: 08/20/25 Time of Service: 10:05 DS: Diagnosis Discharge Diagnosis (1) Osteoarthritis of right hip: Status: Resolved Discharge Plan Disposition Patient Disposition: Home W/Home Health Services Condition: Good Discharge Details Reason For Visit: Right hip DJD Admit Date/Time: 08/19/25 07:02 Admit Provider: Greg Castillo Attending Provider: Greg Castillo Primary Care Provider: Keyon Anderson [facility] Course Hospital Course: Patient was admitted to the medical/surgical floor following the procedure. The surgery was tolerated well without any notable medical, surgical, or anesthetic complications. Mobilization began postoperatively. He was voiding spontaneously. Vitals were stable. Physical therapy worked with the patient and was cleared for discharge home. No acute medical issues. Pain was controlled on oral regimen. Home Meds and New Rx's Prescriptions: New meloxicam 15 mg tablet 15 mg PO DAILY Qty: 30 1RF Rx Instructions: Take one tablet daily for pain and inflammation aspirin 81 mg tablet,delayed release (DR/EC) 81 mg PO BID 30 Days Qty: 60 0RF acetaminophen 500 mg tablet 1,000 mg PO Q8H PRN Qty: 90 0RF Rx Instructions: Take two tablets up to every 8 hours as needed for pain pantoprazole 40 mg tablet,delayed release (DR/EC) 40 mg PO DAILY Qty: 14 0RF Rx Instructions: Take one tablet once daily dexamethasone 4 mg tablet 4 mg PO DAILY Qty: 2 0RF Rx Instructions: Take one tablet once daily for two days docusate sodium [Colace] 100 mg capsule 100 mg PO BID Qty: 28 0RF gabapentin 300 mg capsule 300 mg PO QHS Qty: 14 0RF Rx Instructions: Take one tablet at bedtime tramadol 50 mg tablet 50 mg PO Q6H PRNQty: 6 0RF Continued cholecalciferol (vitamin D3) 25 mcg (1,000 unit) capsule 1,000 unit PO DAILY Patient Comments: 05/04/20- pt reported med. [place] finasteride 5 mg tablet 5 mg PO DAILY Qty: 90 3RF atorvastatin 80 mg tablet 80 mg PO DAILY multivitamin Tablet 1 tab PO DAILY Discontinued acetaminophen 500 mg capsule 1,000 mg PO QAM Patient Comments: Will take second dose in the evening if needed aspirin [Aspir-81] 81 MG tablet,delayed release (DR/EC) 81 mg PO DAILY Patient Comments: Pt also takes BP pill but doesn't know the name or dose Discharge Instructions Additional Instructions: Total Knee Discharge Instructions Activity: The most important activity is to walk and to work on gentle motion (both flexion and extension). You should try to take short walks a few times a day. It is important that when resting you work on keeping the knee straight. Avoid putting a pillow behind the knee as this will encourage flexion. Work on range of motion exercises as provided by Physical Therapy. - Start outpatient physical therapy within 2 weeks. - You should wear the ANN-MARIE hose on both legs for 2 weeks. You may remove these at night. You may also use any compression sock in place of the ANN-MARIE hose. - Utilize [employer] to review exercises, see videos on exercises and obtain basic information pertaining to your surgery and your recovery. Dressing: Remove the Paulino wrap by 2 days after your surgery and put on the ANN-MARIE stocking given to you from the hospital. Keep the surgical dressing (underneath the PAULINO wrap) in place for at least one week. After the first week it may be removed and replaced with light gauze and tape or nothing. The wound and dressing may get wet after 3 days but avoid soaking the dressing or otherwise it will need to be changed. Many people prefer covering the dressing with cling wrap (saran wrap) to minimize it from getting soaked. If it gets wet, just pat dry. If it starts to peel off then it will need to be changed. Medications: - You should take Tylenol and anti-inflammatory Meloxicam as your primary pain control medications. If the Meloxicam is too expensive or not covered, please call the office for another alternative (Advil/Ibuprofen or Naproxen/Aleve) - You have not taken any stronger pain medications in the hospital. HOwever, a light pain medication, Tramadol, was prescribed just for any breakthrough pain you may have. - You have also been prescribed a stomach acid reduction agent Pantoprozole to help reduce stomach acid and reflux. - You have been prescribed Gabapentin to take at night for restlessness and nerve pain. - You will be taking Aspirin 81mg twice a day for DVT prevention unless instructed otherwise. - You have also been prescribed Decadron to take to control post-operative nausea and pain. You will start this tomorrow. - If you have constipation you should take Colace (which has been prescribed) or Miralax (which is available [id number]). It takes most people 3-4 days to have a bowel movement. Follow-up: 2 weeks If you have any acute concerns or questions, please do not hesitate to contact the office at [phone]. You may contact Dr. Castillo with any questions after hours through the hospital at [phone] or on his cell phone at [phone]. 1. Encounter Date and Reason I certify that Jim Blake was seen by Greg Castillo MD on 08/20/25 and that I had a [id number] encounter with this patient that meets the physician face to face encounter requirements. 2. Clinical Findings Supporting Skilled Need and Homebound Status I certify that home health services are medically necessary, include either intermittent prison and/or physical/speech therapy, and that this patient is homebound in that absences from the home require considerable and taxing effort and are infrequent or of short duration, or are attributable to the need to receive medical care. [X] (a) Attached documentation from encounter provides clinical findings supporting skilled need and homebound status (including what assistance patient requires to leave the home). The encounter with the patient was in whole, or in part, for the following medical condition, which is the primary reason for home health care: Right hip DJD Long-Term: Physical Therapy: Jim would benefit from physical and Occupational Therapy to address weakness and gait dysfunction due to severe right hip arthritis now status post anterior hip arthroplasty. He has no formal restrictions on positioning. He is weightbearing as tolerated with assistive device. Speech Therapy: Homebound: Jim is unable to leave his home unassisted due to weakness and gait disturbances. 3. Certification and Authentication I certify that I composed the above information based on my clinical judgement relating to this patient's medical condition and, if applicable, clinical findings communicated to me by the NPP or inpatient physician who performed the Home Health Referral. All further orders will be obtained through Dr. Castillo Stand Alone Forms: Portal Information Referrals: Greg Castillo MD [ [facility] STAFF PHYSICIAN, Orthopaedic Surgical] Activity:: Activity as Tolerated Equipment/Supplies:: Walker Diet:: As Tolerated Discharge Orders Discharge Orders: Discharge Order (Routine); Ordered 08/20/25 Ordered By: Greg Castillo DS: Summary Time Spent with Patient providing and/or coordinating discharge services: Less than 30 minutes Status at Discharge Functional status at discharge: uses cane/walker Overall status at discharge: patient is progressing back to baseline Mental Status: mental status grossly normal Speech and Movement: speech and movement normal Mood: congruent mood Affect: normal affect Quality:SDOH Health Related Social Needs: Health related social needs lonely/isolated Health related social needs details Pt reports some is olation and would be open to having intervention at time of discharge. Exam Narrative Exam Narrative: Sitting up in the chair. No acute distress. Alert and orient x 3. Right hip shows resolving ecchymosis throughout the leg. Dressings clean dry and intact. Femoral nerve sensation is intact. Lateral femoral cutaneous nerve sensation intact. No pain with passive internal/external rotation of the right hip. Able to actively flex the right hip. Psych Mental Status: mental status grossly normal Speech and Movement: speech and movement normal Mood: congruent mood Affect: normal affect DS: Data Vitals/I&O Vitals and I&O: Vital Signs Temperature 97.2 F L 08/19/25 12:50 Pulse 84 08/19/25 12:50 Pulse Rhythm Irregular 08/19/25 06:17 Pulse 79 08/19/25 09:46 Respiratory Rate 18 08/19/25 12:50 Respiratory Depth Normal 08/19/25 06:17 Blood Pressure 99/71 L 08/19/25 12:50 Blood Pressure Mean 81 08/19/25 09:46 Pulse Oximetry 96 08/19/25 12:50 Respiratory End-tidal CO2 33 08/19/25 09:46 Oxygen Delivery Method Room Air 08/19/25 12:50 Oxygen Flow Rate 2 08/19/25 09:43 Pain Level 3 08/19/25 10:43 Comment pt. has irregular HR 52-72, murmur. Pt. SOB with activity 08/19/25 06:17 Intake & Output 08/18/25 08/19/25 08/19/25 23:59 11:59 23:59 Intake Total 500 / 500 Output Total 400 / 400 Balance 100 / 100 Weight 246 lb 15.989 oz 247 lb 2.211 oz Intake: IV 500 / 500 Output: Estimated Blood Loss 400 / 400 Other: Emesis Description None PFSH All Active Problems (Updated 08/19/25 @ 08:48 by Samantha Dixon RN) History of total right hip replacement (Acute 08/19/25) Head injury (Acute) Acute hip pain (Acute) Fall (Acute) BPH (benign prostatic hyperplasia) (Chronic) Atrial dysrhythmia (Acute) Orthostasis (Acute) Pre-syncope (Acute) Hip osteoarthritis (Acute) Weight gain (Acute) Elevated PSA (Acute) 3.96 in December 2019 CAD (coronary artery disease) (Chronic) Hyperlipidemia (Acute) Hematuria (Acute) Cataracts, bilateral (Acute) History of [place] (myocardial infarction) (Acute ~1993) Medical History Dyspnea Severe aortic stenosis Resolved with valvuloplasty in 2014. Unstable angina Surgical History History of cataract surgery Left eye: 04/08/2024 Right eye: 04/22/2024 [facility] Hx of CABG Family History Brother Cancer Brother Cancer Social History Smoking/Tobacco Use Status: Never Smoking risk assessment performed?: Yes Alcohol Intake: current Alcohol Intake frequency: holidays/special occasions only Previous attempts at quittin Drug use: Never Substance use type: does not use Details: alcohol: t-365 Adopted: No Household members: none Housing: apartment Number of Children: 3 number of grandchildren: 4 Communication Needs: Corrective Lenses Education Level: vocational Do you need help understanding health information?: Often current occupation: Retired Pets and animals: No Sexually active: No Do you think of yourself as: straight/heterosexual Current gender identity: male What is your relationship status?: How often do you talk on the phone with friends or family?: once per week How often do you get together with friends or relatives?: once per week Do you belong to any clubs or organized social groups?: yes Panel score (0-1 are the most socially isolated patients): 1 What type of physical activity do you participate in: walking Duration: 15-30 minutes/day Frequency: daily Kate/Jew: Zoroastrianism Special kate needs: No Agree to transfusion: Yes Seatbelt use: always Drive intox 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
--- NOTE | 2025-08-20 15:49 | CMDISCH_ITS ---
Date of service: 08/20/25 Time of Service: 15:49 LACE Index Scoring Tool Questions: Length of Stay (in days): 1 Was the patient admitted via the E.D.?: No Comorbidities: Previous M.I. E.D. Visits: 2 Answers: Total Score: 4 Risk of Readmission: Low Risk Care Management Discharge Plan Reason for Hospitalization: total hip arthroplasty Discharge Plan: Jim will be discharged home with no new service. He will follow up with his surgeon, PCP and plan of care and transport with family. Patient/Family Education Needs: Review of discharge instructions, limitations, follow up plan and discuss Ask Me Three Services Needed at Discharge: Home Health Care Services SDOH Health Related Social Needs: Health related social needs lonely/isolated Health related social needs details Pt reports some is olation and would be open to having intervention at time of discharge. Health related social needs details: Pt reports some isolation and would be open to having intervention at time of discharge.
== END 2025-08-20 12:56 | disposition home health service (06) ==
LOC: MS 13:52
PROVIDERS: Admitting Provider Student in an Organized Health Care Education/Training Program; PCP Family Medicine; Visit Provider Student in an Organized Health Care Education/Training Program
PROC: (CPT 27130; principal; 2025-08-19 07:30)
DX: M16.11 Unilateral primary osteoarthritis, right hip (principal); N40.0 Benign prostatic hyperplasia without lower urinary tract symptoms; I25.10 Atherosclerotic heart disease of native coronary artery without angina pectoris; E78.5 Hyperlipidemia, unspecified; I25.2 Old myocardial infarction; Z95.4 Presence of other heart-valve replacement; I44.0 Atrioventricular block, first degree; R00.1 Bradycardia, unspecified; I95.1 Orthostatic hypotension; Z79.899 Other long term (current) drug therapy; Z79.82 Long term (current) use of aspirin
CPT/HCPCS: 27130; 20985; 36415; 80048; 85027; 97110; 97162; 97530; 73501; C1776; G0378; J0166; J0690; J1100; J1885; J2371; J2401; J2405; J2704; J2795; J3010; J8540

== ENCOUNTER 2025-08-31 18:39 | Emergency (ER) | payer OTHER, SELFPAY ==
[2025-08-31 18:40] VITALS: BP 160/54; PULSE 68; RESP 16; TEMP 36.4; O2SAT 98
--- NOTE | 2025-08-31 19:00 | DI.RAD_ITS ---
Exam(s) XR HIP RT COMPLETE AP PELVIS EXAM: XR HIP RT COMPLETE AP PELVIS CLINICAL HISTORY: trauma, recent replacement. TECHNIQUE: 2D digital imaging was performed. Two views COMPARISON: CR,XR XR HIP PELVIS ADULT BL from 08/10/2025 XA XR HIP RT IN OR from 08/19/2025 FINDINGS: BONES: No acute fracture is present. No bony destructive lesion is seen. JOINTS: No dislocation present. A hip prosthesis is again noted. The alignment is satisfactory. There are degenerative changes in the left hip. SOFT TISSUE: Vascular calcifications. Surgical clips in the left groin. IMPRESSION: No acute abnormality. The preliminary [facility] report was reviewed. DATA REPOSITORY: RADIATION DOSE DELIVERED:
--- NOTE | 2025-08-31 19:00 | DI.CT_ITS ---
Exam(s) CT HEAD WO EXAM: CT HEAD WO CLINICAL HISTORY: fall, head injury. TECHNIQUE: Imaging Protocol: Axial computed tomography images with coronal and sagittal reformatted images were created and reviewed COMPARISON: CT CT HEAD CERVICAL SPINE WO from 08/10/2025 FINDINGS: Ventricles and Extra axial spaces: Normal in size and morphology for the patient's age. Hemorrhage: None. Cerebral parenchyma: No evidence of acute infarct or mass. Moderate atrophy. Mild white matter changes consistent with chronic microvascular changes. Midline shift: None. Brainstem/Cerebellum: Normal. Bones: No skull or facial fractures. Visualized Paranasal sinuses:Clear. Mastoids: Clear. Soft Tissues: Unremarkable. ORBITS: Unremarkable. PITUITARY: Not enlarged. IMPRESSION: No acute intracranial process. The preliminary [facility] report was reviewed. RADIATION DOSE DELIVERED: 854.09mGy.cm Total DLP DATA REPOSITORY: All CT scans at this facility are submitted to the National Radiology Data Registry (NRDR) Dose Index Registry (DIR) with the [employer] (ACR). RADIATION OPTIMIZATION: All CT scans at this facility use at least one of these dose optimization techniques: automated exposure control; mA and/or kV adjustment per patient size (includes targeted exams where dose is matched to clinical indication); or iterative reconstruction.
--- NOTE | 2025-08-31 19:06 | W.ED.GENAD ---
Discharge Plan Disposition Patient Disposition: Home Condition: Fair Discharge Details Clinical Impression: Head injury, Contusion of hip Primary Care Provider: Keyon Anderson ED Provider: Jose Rosales Home Meds and New Rx's Prescriptions: No Action cholecalciferol (vitamin D3) 25 mcg (1,000 unit) capsule 1,000 unit PO DAILY Patient Comments: 05/04/20- pt reported med. [place] finasteride 5 mg tablet 5 mg PO DAILY Qty: 90 3RF atorvastatin 80 mg tablet 80 mg PO DAILY multivitamin Tablet 1 tab PO DAILY meloxicam 15 mg tablet 15 mg PO DAILY Qty: 30 1RF Rx Instructions: Take one tablet daily for pain and inflammation aspirin 81 mg tablet,delayed release (DR/EC) 81 mg PO BID 30 Days Qty: 60 0RF acetaminophen 500 mg tablet 1,000 mg PO Q8H PRN Qty: 90 0RF Rx Instructions: Take two tablets up to every 8 hours as needed for pain pantoprazole 40 mg tablet,delayed release (DR/EC) 40 mg PO DAILY Qty: 14 0RF Rx Instructions: Take one tablet once daily dexamethasone 4 mg tablet 4 mg PO DAILY Qty: 2 0RF Rx Instructions: Take one tablet once daily for two days docusate sodium [Colace] 100 mg capsule 100 mg PO BID Qty: 28 0RF gabapentin 300 mg capsule 300 mg PO QHS Qty: 14 0RF Rx Instructions: Take one tablet at bedtime tramadol 50 mg tablet 50 mg PO Q6H PRNQty: 6 0RF Discharge Instructions Instructions: Head injury in adults, Minor Contusion ED Additional Instructions: Call your orthopedist tomorrow to make sure that they do not have any additional instructions or request to follow up sooner than originally planned. Stand Alone Forms: Portal Information Referrals: Keyon Anderson DO [Primary Care Provider, Medicine] - 2 weeks HPI General Date/Time Provider Initiated Documentation: 08/31/25 18:50. HPI Narrative: This is an 80-year-old male presenting to the emergency department via ambulance with a chief complaint of fall. Patient has a history of atrial dysrhythmia, osteoarthritis, coronary artery disease with STEMI, recent hip replacement. Patient states that he was bending over near the stove and lost his balance falling. He struck the right side of his head on the stove and the right side of his right hip. He states that it is mildly to moderately painful, particularly to bear weight. He did not lose consciousness. No neck pain. No chest pain or shortness of breath. No abdominal pain. No recent illnesses. He did not sustain any lacerations or abrasions. Related Data Home Medications Medication Instructions Recorded Confirmed atorvastatin 80 mg tablet 80 mg PO DAILY 01/02/20 08/19/25 cholecalciferol (vitamin D3) 25 1,000 unit PO DAILY 05/04/20 08/19/25 mcg (1,000 unit) capsule finasteride 5 mg tablet 5 mg PO DAILY #90 tabs 06/18/25 08/19/25 acetaminophen 500 mg tablet 1,000 mg (2 x 500 mg) PO Q8H PRN 08/19/25 pain #90 tabs aspirin 81 mg tablet,delayed 81 mg PO BID 30 days #60 tabs 08/19/25 release dexamethasone 4 mg tablet 4 mg PO DAILY #2 tabs 08/19/25 docusate sodium 100 mg capsule 100 mg PO BID #28 caps 08/19/25 (Colace) gabapentin 300 mg capsule 300 mg PO QHS #14 caps 08/19/25 meloxicam 15 mg tablet 15 mg PO DAILY #30 tabs 08/19/25 multivitamin 1 tab PO DAILY 08/19/25 08/19/25 pantoprazole 40 mg tablet,delayed 40 mg PO DAILY #14 tabs 08/19/25 release tramadol 50 mg tablet 50 mg PO Q6H PRN #6 tabs 08/20/25 Previous Rx's Medication Instructions Recorded finasteride 5 mg tablet 5 mg PO DAILY #90 tabs 06/18/25 acetaminophen 500 mg tablet 1,000 mg (2 x 500 mg) PO Q8H PRN 08/19/25 pain #90 tabs aspirin 81 mg tablet,delayed 81 mg PO BID 30 days #60 tabs 08/19/25 release dexamethasone 4 mg tablet 4 mg PO DAILY #2 tabs 08/19/25 docusate sodium 100 mg capsule 100 mg PO BID #28 caps 08/19/25 (Colace) gabapentin 300 mg capsule 300 mg PO QHS #14 caps 08/19/25 meloxicam 15 mg tablet 15 mg PO DAILY #30 tabs 08/19/25 pantoprazole 40 mg tablet,delayed 40 mg PO DAILY #14 tabs 08/19/25 release tramadol 50 mg tablet 50 mg PO Q6H PRN #6 tabs 08/20/25 Allergies Allergy/AdvReac Type Severity Reaction Status Date / Time No Known Allergies Allergy Verified 08/19/25 06:11 General Stated Complaint: Fall/Non TraumaCriteria CARLEE: 2 Review of Systems All systems reviewed & are unremarkable except as noted in HPI and below Constitutional Constitutional: Reports system reviewed and no additional complaints, except as documented, Denies fever(s), Denies weakness and Denies weight loss Eyes Eyes: Denies blurry vision and Denies loss of vision ENT Ears, Nose, Mouth, and Throat: Denies sore throat Cardiovascular Cardiovascular: Denies chest pain, Denies palpitations and Denies dyspnea Respiratory Respiratory: Denies cough, Denies dyspnea and Denies wheezing Gastrointestinal Gastrointestinal: Denies abdominal pain, Denies diarrhea, Denies nausea and Denies vomiting Genitourinary Genitourinary: Denies hematuria and Denies dysuria Musculoskeletal Musculoskeletal: Denies back pain, Reports arthralgias and Denies numbness Neurologic Neurologic: Denies abnormal speech, Denies localized weakness, Denies loss of vision, Denies numbness, Denies seizure-like activity, Denies sensory deficit and Denies weakness Comments: Head injury Psychiatric Psychiatric: Denies suicidal ideation Endocrine Endocrine: Denies palpitations Allergic/Immunologic Allergic/Immunologic: Denies wheezing Exam Const General: no acute distress and well groomed HENMT Mouth: oral mucosae normal and moist mucous membranes Throat: posterior oropharynx normal Eyes Conjunctivae: conjunctivae normal Sclera: sclerae normal Neck Neck: full ROM and No JVD Resp Effort & Inspection: normal respiratory effort Auscultation: clear to auscultation bilaterally Cardio Rate: regular rate Rhythm: regular rhythm Heart Sounds: no murmurs GI Palpation: soft and nontender Skin General skin exam: no rashes or lesions noted Neuro General: patient alert and patient oriented x3 Extrem Other: There is mild tenderness on the lateral aspect of the right hip. This can be passively ranged both internally and externally although it does reproduce some pain. Right lower extremity has normal sensation. Cap refill is less than 1 second in the right ankle. Psych Appearance: grossly normal Mental Status: mental status grossly normal Speech and Movement: speech and movement normal Affect: normal affect Thought Process: normal Course Vital Signs Vital signs: Vital Signs Temperature 36.4 C 08/31/25 18:40 Pulse 68 08/31/25 18:40 Respiratory Rate 16 08/31/25 18:40 Blood Pressure 160/54 H 08/31/25 18:40 Pulse Oximetry 98 08/31/25 18:40 Temperature 36.4 C 08/31/25 18:40 Temperature Source Oral 08/31/25 18:40 Pulse 68 08/31/25 18:40 Respiratory Rate 16 08/31/25 18:40 Blood Pressure 160/54 H 08/31/25 18:40 Pulse Oximetry 98 08/31/25 18:40 Oxygen Delivery Method Room Air 08/31/25 18:40 Oxygen Flow Rate 0 08/31/25 18:40 Pain Level 0 08/31/25 18:40 Medical Decision Making This is an 80-year-old male presenting status post fall with head injury and right hip injury who is 2 weeks status post right hip replacement. The patient was seen and examined by me. Old charts were reviewed and nursing notes were reviewed including the recent surgical procedure. Patient declined pain medication. Patient meets Citizen [place] head CT criteria and this was initiated. X-ray of the right hip was initiated. X-ray hip and pelvis did not show any acute abnormality per the attending radiologist. CT head did not show any acute abnormality per the attending radiologist. Patient was ambulated with a walker which is his normal. He was able to mobilize without significant difficulty or discomfort. He would like to go home. Quality:SDOH Health Related Social Needs: Health related social needs lonely/isolated Health related social needs details Pt reports some isolation and would be open to having intervention at time of discharge. PFSH All Active Problems (Updated 08/31/25 @ 20:32 by Jose Rosales MD) Contusion of hip (Acute) Head injury (Acute) History of total right hip replacement (Acute 08/19/25) Head injury (Acute) Acute hip pain (Acute) Fall (Acute) BPH (benign prostatic hyperplasia) (Chronic) Atrial dysrhythmia (Acute) Orthostasis (Acute) Pre-syncope (Acute) Hip osteoarthritis (Acute) Weight gain (Acute) Elevated PSA (Acute) 3.96 in December 2019 CAD (coronary artery disease) (Chronic) Hyperlipidemia (Acute) Hematuria (Acute) Cataracts, bilateral (Acute) History of [place] (myocardial infarction) (Acute ~1993) Medical History Dyspnea Severe aortic stenosis Resolved with valvuloplasty in 2014. Unstable angina Surgical History History of cataract surgery Left eye: 04/08/2024 Right eye: 04/22/2024 [facility] Hx of CABG Family History Brother Cancer Brother Cancer Social History Smoking/Tobacco Use Status: Never Smoking risk assessment performed?: Yes Alcohol Intake: current Alcohol Intake frequency: holidays/special occasions only Previous attempts at quittin Drug use: Never Substance use type: does not use Details: alcohol: t-365 Adopted: No Household members: none Housing: apartment Number of Children: 3 number of grandchildren: 4 Communication Needs: Corrective Lenses Education Level: vocational Do you need help understanding health information?: Often current occupation: Retired Pets and animals: No Sexually active: No Do you think of yourself as: straight/heterosexual Current gender identity: male What is your relationship status?: How often do you talk on the phone with friends or family?: once per week How often do you get together with friends or relatives?: once per week Do you belong to any clubs or organized social groups?: yes Panel score (0-1 are the most socially isolated patients): 1 What type of physical activity do you participate in: walking Duration: 15-30 minutes/day Frequency: daily Kate/Pentecostalism: Catholic Special kate needs: No Agree to transfusion: Yes Seatbelt use: always 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
--- NOTE | 2025-08-31 19:47 | DI.VRAD_ITS ---
PROCEDURE INFORMATION: Exam: CT Head Without Contrast Exam date and time: 08/31/2025 7:33 PM Age: 80 years old Clinical indication: Injury or trauma; Blunt trauma (contusions or hematomas); Loss of consciousness unknown; Injury date: 08/31/25; Injury details: Fall, head injury TECHNIQUE: Imaging protocol: Computed tomography of the head without contrast. Radiation optimization: All CT scans at this facility use at least one of these dose optimization techniques: automated exposure control; mA and/or kV adjustment per patient size (includes targeted exams where dose is matched to clinical indication); or iterative reconstruction. COMPARISON: CT HEAD CERVICAL SPINE WO 08/10/2025 6:28 PM FINDINGS: Brain: No acute intracranial hemorrhage or mass lesions. No midline shift. Normal coe-white differentiation. There are extensive scattered deep and periventricular white matter changes likely associated with chronic microvascular ischemia. Cerebral ventricles: No ventriculomegaly. Paranasal sinuses: Visualized sinuses are unremarkable. No fluid levels. Mastoid air cells: Visualized mastoid air cells are well aerated. Bones: Unremarkable. No acute fracture. Soft tissues: Unremarkable. Vasculature: Atheromatous calcifications are present bilaterally within the cavernous portions of the internal carotid arteries. IMPRESSION: 1. No acute intracranial findings. 2. Findings likely associated with chronic microvascular ischemia. Dictated and Authenticated by: Moni Maldonado MD. Orderin Bobby Garcia MD
--- NOTE | 2025-08-31 19:57 | DI.VRAD_ITS ---
PROCEDURE INFORMATION: Exam: XR Right Hip Exam date and time: 08/31/2025 7:45 PM Age: 80 years old Clinical indication: Injury or trauma; Blunt trauma (contusions or hematomas); Right; Injury date: 08/31/25; Injury details: Fall, recent hip replacement; Prior surgery; Surgery date: <1 month; Surgery type: Hip replacement 08/19/25 TECHNIQUE: Imaging protocol: Radiologic exam of the right hip. Views: 2 or 3 views hip with pelvis when performed. COMPARISON: XA XR HIP RT IN OR 08/19/2025 7:52 AM FINDINGS: Bones/joints: The right hip arthroplasty is intact. No acute fracture or dislocation. Severe osteoarthritis is present at the left hip joint. Soft tissues: Unremarkable. IMPRESSION: 1. No acute radiographic findings. 2. If pain persists, consider repeat imaging or CT of the pelvis in 5-7 days to exclude occult fracture. Dictated and Authenticated by: Moni Maldonado MD. Orderin Bobby Garcia MD
[2025-08-31 20:47] VITALS: BP 151/52; PULSE 65; RESP 16; TEMP 36.7; O2SAT 98
== END 2025-08-31 20:59 | disposition home or self-care (01) ==
PROVIDERS: Emergency Provider Emergency Medicine; PCP Family Medicine
DX: S70.01XA Contusion of right hip, initial encounter (principal); S09.8XXA Other specified injuries of head, initial encounter; W18.09XA Striking against other object with subsequent fall, initial encounter; Z60.8 Other problems related to social environment; Z96.641 Presence of right artificial hip joint
CPT/HCPCS: 99283; 99284; 70450; 73502

== ENCOUNTER 2025-09-03 05:27 | Emergency (ER) | payer OTHER, SELFPAY ==
[2025-09-03 05:23] VITALS: BP 130/67; PULSE 69; RESP 16; TEMP 36.5; O2SAT 98
--- NOTE | 2025-09-03 05:27 | ED.GENADUL_ITS ---
Discharge Plan Disposition Patient Disposition: Home Condition: Good Discharge Details Clinical Impression: Fall with no significant injury Primary Care Provider: Keyon Anderson ED Provider: Paulino Lemus Home Meds and New Rx's Prescriptions: Continued cholecalciferol (vitamin D3) 25 mcg (1,000 unit) capsule 1,000 unit PO DAILY Patient Comments: 05/04/20- pt reported med. NC finasteride 5 mg tablet 5 mg PO DAILY Qty: 90 3RF atorvastatin 80 mg tablet 80 mg PO DAILY multivitamin Tablet 1 tab PO DAILY meloxicam 15 mg tablet 15 mg PO DAILY Qty: 30 1RF Rx Instructions: Take one tablet daily for pain and inflammation aspirin 81 mg tablet,delayed release (DR/EC) 81 mg PO BID 30 Days Qty: 60 0RF acetaminophen 500 mg tablet 1,000 mg PO Q8H PRN Qty: 90 0RF Rx Instructions: Take two tablets up to every 8 hours as needed for pain tramadol 50 mg tablet 50 mg PO Q6H PRNQty: 6 0RF Discharge Instructions Instructions: Preventing Falls ED Additional Instructions: You were seen in the ED after a fall at home. Your exam is reassuring and there appears to be no significant injury. Resume previous medications and physical therapy as previously ordered after your hip surgery. Follow up with PCP as needed and ortho as scheduled. Return to ED for increasing hip pain or inability to ambulate, worsening headache, persistent vomiting, neurological changes. Stand Alone Forms: Portal Information HPI General Mode of arrival: EMS . Date/Time Provider Initiated Documentation: 09/03/25 05:27 . Limitations to Documentation: no limitations . Information obtained by: patient, RN notes reviewed and old records reviewed . HPI Narrative: Patient presents to ED from home by ambulance after a fall. Patient had right total hip surgery done here on . He was seen here in the ED on the after a fall at home with no apparent injury. Subsequently had a follow-up visit which had been scheduled with orthopedics on the . Returned this morning with another fall at home, this time because he was bearing all of his weight on his walker while trying to get dressed when it slid out from under him causing him to fall on his left side. He grazed his head on the wall but denies any hard strike. His left hip and left shoulder took the brunt of his weight. Currently denies any pain other then the typical post op right hip pain he has been having. He denies any headache, neck pain, back pain, chest pain, shortness of breath, numbness or weakness. He does not feel that the right hip is any different than prior to his fall. Related Data Home Medications Medication Instructions Recorded Confirmed atorvastatin 80 mg tablet 80 mg PO DAILY 01/02/2008/16 cholecalciferol (vitamin D3) 25 1,000 unit PO DAILY 09/01/25 mcg (1,000 unit) capsule finasteride 5 mg tablet 5 mg PO DAILY #90 tabs 06/1809/01/25 acetaminophen 500 mg tablet 1,000 mg (2 x 500 mg) PO Q 8H PRN 08/19/25 09/01/25 pain #90 tabs aspirin 81 mg tablet,delayed 81 mg PO BID 30 days #60 tabs 08/19/25 09/01/25 release meloxicam 15 mg tablet 15 mg PO DAILY #30 tabs 02/0709/01/25 multivitamin 1 tab PO DAILY 08/19/2508/16 tramadol 50 mg tablet 50 mg PO Q6H PRN #6 tabs 03/0909/01/25 Previous Rx's Medication Instructions Recorded finasteride 5 mg tablet 5 mg PO DAILY #90 tabs 06/18 acetaminophen 500 mg tablet 1,000 mg (2 x 500 mg) PO Q 8H PRN 08/19/25 pain #90 tabs aspirin 81 mg tablet,delayed 81 mg PO BID 30 days #60 tabs 08/19/25 release meloxicam 15 mg tablet 15 mg PO DAILY #30 tabs 02/07 tramadol 50 mg tablet 50 mg PO Q6H PRN #6 tabs 03/09 Allergies Allergy/AdvReac Type Severity Reaction Status Date / Time No Known Allergies Allergy Verified 09/01/25 10:57 General Stated Complaint: Fall/Non TraumaCriteria CARLEE: 3 Exam Narrative Exam Narrative: Const: WDWN eldelry male in NAD. VS per triage. HEENT: NC/AT. Normal facial exam. Neck: Supple. Trachea midline. No posterior cervical spine tenderness. Lungs: Normal respiratory effort. Lungs are clear. No chest wall tenderness. Cor: RRR with murmur. Good radial pulses. GI: Soft/ND/NT. Back: No midline tenderness. Neuro: A+O x 3. Normal speech, mentation. Cranial nerves II - XII grossly intact. No gross motor or sensory deficit. Ext: No deformity. Normal ROM of BUE. No tenderness involving the left shoulder. Normal ROM of LLE with no tenderness of L hip. Pelvis is stable and nontender. Decreased ROM at right hip but no different than pre-fall and is still working on mobility with PT. No significant tenderness. Course Vital Signs Vital signs: Vital Signs Temperature 97.7 F 09/03/25 05:23 Pulse 69 09/03/25 05:23 Respiratory Rate 16 09/03/25 05:23 Blood Pressure 130/67 09/03/25 05:23 Pulse Oximetry 98 09/03/25 05:23 Temperature 97.7 F 09/03/25 05:23 Pulse 69 09/03/25 05:23 Respiratory Rate 16 09/03/25 05:23 Blood Pressure 130/67 09/03/25 05:23 Blood Pressure Position Supine 09/03/25 05:23 Pulse Oximetry 98 09/03/25 05:23 Oxygen Delivery Method Room Air 09/03/25 05:23 Oxygen Flow Rate 0 09/03/25 05:23 Pain Level 5 09/03/25 05:23 Medical Decision Making Patient presenting after a fall at home. He is not on anticoagulation. He denies significant head injury describes it as grazing the wall. He has no headache and is neurologically intact. Do not believe he requires CT head at this point. Spine including cervical spine cleared clinically. Normal range of motion of the left shoulder and hip which is what he landed on. There is no tenderness or pain. Has baseline postoperative pain involving the right hip which he says is no different nor is the mobility different. We were able to get him up off the stretcher to a standing position with no difficulty. He is able to pivot and states that this is his baseline since the surgery with no increased pain. I do not believe any imaging is required at this point. Patient may be discharged home to resume medication and physical therapy per previous instructions. Follow-up with orthopedics as previously scheduled. Encouraged to be more careful at home especially since this is his second fall in 3 days. Follow-up with primary care as needed. Return precautions provided. Medical Records Medical records reviewed: Yes I reviewed the patient's medical records. Quality:SDOH Health Related Social Needs: Health related social needs lonely/isolated Health related social needs details Pt reports some is olation and would be open to having intervention at time of discharge. PFSH All Active Problems (Updated 09/03/25 @ 06:00 by Paulino Lemus MD) Fall with no significant injury (Acute) Contusion of hip (Acute) Head injury (Acute) Head injury (Acute) Acute hip pain (Acute) Fall (Acute) BPH (benign prostatic hyperplasia) (Chronic) Atrial dysrhythmia (Acute) Orthostasis (Acute) Pre-syncope (Acute) Hip osteoarthritis (Acute) Weight gain (Acute) Elevated PSA (Acute) 3.96 in December 2019 CAD (coronary artery disease) (Chronic) Hyperlipidemia (Acute) Hematuria (Acute) Cataracts, bilateral (Acute) History of [place] (myocardial infarction) (Acute ~1993) Medical History (Updated 09/03/25 @ 06:00 by Paulino Lemus MD) Dyspnea Severe aortic stenosis Resolved with valvuloplasty in 2014. Unstable angina Surgical History (Updated 09/03/25 @ 06:00 by Paulino Lemus MD) History of total right hip replacement (08/19/25) History of cataract surgery Left eye: 04/08/2024 Right eye: 04/22/2024 [facility] Hx of CABG Family History Brother Cancer Brother Cancer Social History Smoking/Tobacco Use Status: Never Smoking risk assessment performed?: Yes Alcohol Intake: current Alcohol Intake frequency: holidays/special occasions only Previous attempts at quittin Drug use: Never Substance use type: does not use Details: alcohol: t-365 Adopted: No Household members: none Housing: apartment Number of Children: 3 number of grandchildren: 4 Communication Needs: Corrective Lenses Education Level: vocational Do you need help understanding health information?: Often current occupation: Retired Pets and animals: No Sexually active: No Do you think of yourself as: straight/heterosexual Current gender identity: male What is your relationship status?: How often do you talk on the phone with friends or family?: once per week How often do you get together with friends or relatives?: once per week Do you belong to any clubs or organized social groups?: yes Panel score (0-1 are the most socially isolated patients): 1 What type of physical activity do you participate in: walking Duration: 15-30 minutes/day Frequency: daily Kate/Jehovah'S Witness: Mormonism Special kate needs: No Agree to transfusion: Yes Seatbelt use: always 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
[2025-09-03 06:29] VITALS: PULSE 62; RESP 16; O2SAT 98
== END 2025-09-03 06:29 | disposition home or self-care (01) ==
PROVIDERS: Emergency Provider Emergency Medicine; PCP Family Medicine
DX: M25.552 Pain in left hip (principal); M25.512 Pain in left shoulder; I25.10 Atherosclerotic heart disease of native coronary artery without angina pectoris; E78.5 Hyperlipidemia, unspecified; Z79.82 Long term (current) use of aspirin
CPT/HCPCS: 99283

== ENCOUNTER → 2025-09-29 10:24 | Outpatient (BNVA) | payer MEDICARE, SELFPAY | PROVIDERS: PCP Family Medicine; Referring Provider Family Medicine; Visit Provider Physician Assistant | DX: Z47.1 Aftercare following joint replacement surgery (principal); Z96.641 Presence of right artificial hip joint | CPT/HCPCS: 99024 ==

== ENCOUNTER 2025-10-07 00:18 | Emergency (ER) | payer MEDICARE, SELFPAY ==
[2025-10-07] VITALS (25 sets, daily range): BP systolic 145–175; BP diastolic 47–118; PULSE 46–74; RESP 12–26; TEMP 37.3; O2SAT 95–100
--- NOTE | 2025-10-07 | RT.EKG_ITS ---
APPROVED REPORT Exam: Resting ECG Reason for Exam: Dizziness Patient Location: E HR:66 bpm ECG Measurements Heart Rate 66 AXIS SD 409 P 70 QRSd 108 QRS 46 QT 406 T 136 QTc 424 Conclusion Sinus rhythm...normal P axis, V-rate 60- 99 Prolonged SD interval...SD >220, V-rate 50- 90 Incomplete left bundle branch block...QRSd>110mS, terminal axis(-90,-1) Physician: Stable, No STEMI
--- NOTE | 2025-10-07 00:30 | DI.RAD_ITS ---
Exam(s) XR PORTABLE CHEST AP EXAM: XR PORTABLE CHEST AP CLINICAL HISTORY: crackles Left upper lobe. TECHNIQUE: 2D digital imaging was performed. COMPARISON: CR,XR XR CHEST 2V PA LATERAL from 08/10/2025 FINDINGS: Single AP portable view. Sternotomy wires are again noted. Heart size is upper normal. The mediastinum is not widened. Lungs are clear. No infiltrates nor obvious pleural effusions. No pulmonary edema. IMPRESSION: No acute pulmonary findings on this single AP portable view of the chest. DATA REPOSITORY: RADIATION DOSE DELIVERED:
[2025-10-07 00:50] LABS: Abs Immature Grans 0.02 10^3/uL (0.0-0.06); HCT 35.9 % (40.0-50.0); HGB 11.5 g/dL (13.5-17.5); Immature Grans % 0.4 %; MCH 28.8 pg (27.0-33.0); MCHC 32.0 % (32.0-36.0); MCV 90 fL (80-95); MPV 9.9 fL (8.0-11.0); Platelet Count 158 10^3/uL (130-400); RBC 4.00 10^6/uL (4.36-5.78); RDW 14.2 % (11.8-14.1); RDW-SD 46.1 fL; WBC 5.15 10^3/uL (4.4-10.8)
[2025-10-07 01:02] LABS: Glucose Negative (Negative)
[2025-10-07 01:04] LABS: INR 1.1 (0.9-1.1); PTT Activated 25.4 sec (20.6-30.2); Prothrombin Time 10.4 sec (9.1-11.1)
[2025-10-07] MEDS: Normal Saline 500 ML IV (01:07)
[2025-10-07 01:10] LABS: Troponin I 11 ng/L (<54)
--- NOTE | 2025-10-07 01:12 | ED.GENADUL_ITS ---
Discharge Plan Disposition Patient Disposition: Home Condition: Good Discharge Details Clinical Impression: Frequent urination, Light-headedness Primary Care Provider: Keyon Anderson ED Provider: Jose Walker Home Meds and New Rx's Prescriptions: No Action cholecalciferol (vitamin D3) 25 mcg (1,000 unit) capsule 1,000 unit PO DAILY Patient Comments: 05/04/20- pt reported med. [place] atorvastatin 80 mg tablet 80 mg PO DAILY aspirin 81 mg tablet,delayed release (DR/EC) 81 mg PO DAILY multivitamin Tablet 1 tab PO DAILY acetaminophen 500 mg tablet 1,000 mg PO Q8H PRN Qty: 90 0RF Rx Instructions: Take two tablets up to every 8 hours as needed for pain tramadol 50 mg tablet 50 mg PO Q6H PRNQty: 6 0RF Discharge Instructions Instructions: Dizziness, Adult ED Additional Instructions: At this time your laboratory workup has returned reassuring. There is no evidence of significant electrolyte abnormality, severe blood loss, stroke, brain tumor, pneumonia or urinary tract infection. Please try to cut down on your caffeine intake, or if you continue to drink so many cups of coffee, please make sure that you are also drinking it with water to stay well-hydrated. If you notice any worsening of your symptoms, or any new symptoms such as vomiting, diarrhea, fever, chills, shortness of breath, chest pain, numbness, weakness, or fainting , please return immediately to the emergency department for reevaluation. Please follow up with your primary care provider as soon as possible for reassessment and reevaluation. As always, it was a pleasure participating in your medical care today. Stand Alone Forms: Portal Information Referrals: Keyon Anderson DO [Primary Care Provider, Medicine] [facility] General Date/Time Provider Initiated Documentation: 10/07/25 00:37 . HPI Narrative: This is a pleasant 80-year-old male with a past medical history of high cholesterol, coronary artery disease, and triple bypass in 2000, and double bypass in 2015, who presents today for lightheadedness and frequent urination. Patient states that for the last few days he has been having urinary frequency, he has also felt lightheaded and slightly dizzy whenever he gets up and moves around quickly. He denies any fever or chills. He denies any falls or trauma. He denies any hematuria. He denies any dysuria. Tonight he continued to feel quite dizzy and lightheaded when he got up to walk around, and EMS was called. Vitals are stable, the patient was brought to the ER for further assessment. Patient denies any other complaints at this time. No other modifying factors. Related Data Home Medications ?Medication ?Instructions ?Recorded ?Confirmed atorvastatin 80 mg tablet 80 mg PO DAILY 01/02/2009/16 cholecalciferol (vitamin D3) 25 1,000 unit PO DAILY 10/07/25 mcg (1,000 unit) capsule acetaminophen 500 mg tablet 1,000 mg (2 x 500 mg) PO Q 8H PRN 08/19/25 10/07/25 pain #90 tabs multivitamin 1 tab PO DAILY 08/19/2509/16 tramadol 50 mg tablet 50 mg PO Q6H PRN #6 tabs 03/0910/07/25 aspirin 81 mg tablet,delayed 81 mg PO DAILY 10/07/25 1 12/08/24 release Previous Rx's ?Medication ?Instructions ?Recorded acetaminophen 500 mg tablet 1,000 mg (2 x 500 mg) PO Q 8H PRN 08/19/25 pain #90 tabs tramadol 50 mg tablet 50 mg PO Q6H PRN #6 tabs 03/09 Allergies Allergy/AdvReac Type Severity Reaction Status Date / Time No Known Allergies Allergy Verified 10/07/25 00:31 General Stated Complaint: Dizzy/Sync CARLEE: 3 Exam Narrative Exam Narrative: 1.Const: Well-nourished, Well-developed, appearing stated age 2.Eyes: PERRL, no conjunctival injection, and symmetrical lids. 3.ENT: Atraumatic external nose and ears. Moist MM. Neck: Symmetric, trachea midline, No thyromegaly. 4.CVS: +S1/S2, Peripheral pulses 2+ and equal in all extremities. Brisk capillary refill in all extremities. 5.RESP: Unlabored respiratory effort. Crackles in the left upper lung field 6.GI: Soft, Nontender/Nondistended, No hepatosplenomegaly. No guarding or rebound. 7.MSK: Normocephalic/Atraumatic, Extremities w/o deformity or ttp No cyanosis or clubbing, Normal movement of all extremities. Trace pitting edema in lower extremities 8.Skin: Warm, Dry. No rashes or lesions. 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 Sensation grossly intact, no focal neurologic deficits. 10.Psych: (AAO) x3. Appropriate mood and affect Course Vital Signs Vital signs: Vital Signs Temperature 37.3 C 10/07/25 00:18 Pulse 66 10/07/25 00:18 Respiratory Rate 18 10/07/25 00:18 Blood Pressure 175/61 H 10/07/25 00:18 Temperature 37.3 C 10/07/25 00:18 Temperature Source Temporal Artery Scan 10/07/25 00:18 Pulse 66 10/07/25 00:18 Pulse 70 10/07/25 00:52 Respiratory Rate 22 10/07/25 00:52 Respiratory Effort Normal, Non-Labored 10/07/25 00:29 Respiratory Depth Normal 10/07/25 00:29 Respiratory Pattern Normal 10/07/25 00:29 Blood Pressure 175/61 H 10/07/25 00:18 Blood Pressure Position Supine 10/07/25 00:18 Oxygen Delivery Method Room Air 10/07/25 00:18 Oxygen Flow Rate 0 10/07/25 00:18 Pain Level 0 10/07/25 00:18 Lab/Test Results Lab/Test Results: 10/07/25 00:35 Urine - Clean Catch Urine Culture - Pending 10/07/25 00:40 Blood Blood Culture - Pending 10/07/25 00:37 Blood Blood Culture - Pending Laboratory Tests Range/Units 10/07/25 10/07/25 00:35 00:40 WBC (4.4-10.8) 10^3/uL 5.15 RBC (4.36-5.78) 10^6/uL 4.00 L Hgb (13.5-17.5) g/dL 11.5 L Hct (40.0-50.0) % 35.9 L MCV (80-95) fL 90 MCH (27.0-33.0) pg 28.8 MCHC (32.0-36.0) % 32.0 RDW (11.8-14.1) % 14.2 H Plt Count (130-400) 10^3/uL 158 MPV (8.0-11.0) fL 9.9 Immature Gran % % 0.4 Neutrophils % % 54.4 Lymphocytes % % 27.6 Monocytes % % 11.7 Eosinophils % % 4.9 Basophils % % 1.0 Nucleated RBC % (0.0-0.3) % 0.0 Absolute Neutrophils (1.2-6.7) 10^3/uL 2.81 Absolute Lymphocytes (1.2-3.4) 10^3/uL 1.42 Absolute Monocytes (0.1-0.8) 10^3/uL 0.60 Absolute Eosinophils (0.0-0.7) 10^3/uL 0.25 Absolute Basophils (0.0-0.2) 10^3/uL 0.05 PT (9.1-11.1) sec 10.4 INR (0.9-1.1) 1.1 APTT (20.6-30.2) sec 25.4 VBG Lactate (<or=2.0) mmol/L 1.6 Troponin I (<54) ng/L 11 Urine Color (Yellow) Yellow Urine Clarity (Clear) Clear Urine pH (5-8) 7.5 Ur Specific [place] (1.005-1.025) 1.015 Urine Protein (Neg-Trace) mg/dL Negative Urine Ketones (Negative) mg/dL Negative Urine Blood (Negative) Negative Urine Nitrite (Negative) Negative Urine Bilirubin (Negative) Negative Urine Urobilinogen (Up to 0.2) mg/dL 0.2 Ur Leukocyte Esterase (Negative) Negative Urine Glucose (Negative) mg/dL Negative Medical Decision Making This is a pleasant 80-year-old male with a past medical history of high cholesterol, coronary artery disease, and triple bypass in 2000, and double bypass in 2015, who presents today for lightheadedness and frequent urination. Patient states that for the last few days he has been having urinary frequency, he has also felt lightheaded and slightly dizzy whenever he gets up and moves around quickly. He denies any fever or chills. He denies any falls or trauma. He denies any hematuria. He denies any dysuria. Tonight he continued to feel quite dizzy and lightheaded when he got up to walk around, and EMS was called. Vitals are stable, the patient was brought to the ER for further assessment. Patient denies any other complaints at this time. No other modifying factors. Exam demonstrates well-appearing male, mild crackles in the left upper lung field, trace pitting edema, no abdominal pain or tenderness. Differential includes UTI, pneumonia, dehydration. Less likely cardiac dysrhythmia. Differential also includes orthostatic response from dehydration. We will gently rehydrate, check for infection, monitor closely and reassess. 3:20 AM On reassessment patient remains hemodynamically stable. Patient demonstrates mild chronic bradycardia, no hypotension. CT scan of the head negative for acute process, bleed or stroke or tumor per radiology. Chest x-ray shows no pneumonia or other abnormality. Laboratory workup notably stable, no electrolyte dysfunction, serial troponins normal, no signs of heart strain. Patient feels well with no episodes of syncope. I discussed the patient's habits at home, as well as his frequent urination. He has no signs of a UTI at this time. No evidence to suggest stroke, infection, cardiac dysrhythmia or other life-threatening etiology. No evidence of ACS. Patient admits to drinking 8 to 10 cups of coffee per day. I did discuss with the patient how coffee does function as a diuretic with the caffeine. Patient understands. Recommend replacing the coffee with noncaffeinated beverages, or if he does drink caffeinated coffee that he drinks it with water as well. Patient will follow-up closely with his primary care provider for continued cardiac monitoring and outpatient follow-up. Family at bedside, they feel comfortable with plan. I have extensively reviewed the treatment plan and discharge instructions with the patient and their family. I have addressed all patient concerns at this time. The patient and family was made aware of what symptoms to monitor for that would warrant a return to the emergency department. Discussed the plan with the patient and family, they demonstrate verbal understanding and agreement with our assessment and plan at this time. The documentation in this chart was dictated using [employer] dictation software. Please excuse any dictation errors. COMPARISON: CT HEAD WO 08/31/2025 7:33 PM FINDINGS: Brain: Mild generalized volume loss of the brain. Old lacunar infarction(s). No brain edema. No intracranial hemorrhage. Cerebral ventricles: No ventriculomegaly. Paranasal sinuses: Visualized sinuses are unremarkable. No fluid levels. Mastoid air cells: Unremarkable. Bones: Unremarkable. No acute fracture. Soft tissues: Unremarkable. IMPRESSION: No acute brain findings. Thank you for allowing us to participate in the care of your patient. Dictated and Authenticated by: Grabiel Blackburn MD 10/07/2025 2:14 AM Eastern Time ([place] & [place]) FINDINGS: Lungs: Unremarkable. No consolidation. Pleural spaces: Unremarkable. No pleural effusion. No pneumothorax. Heart/Mediastinum: Unremarkable. No cardiomegaly. Bones/joints: Unremarkable. IMPRESSION: No acute findings. Thank you for allowing us to participate in the care of your patient. Dictated and Authenticated by: Grabiel Blackburn MD 10/07/2025 1:42 AM Eastern Time ([place] & [place]) Quality:SDOH Health Related Social Needs: Health related social needs lonely/isolated Health related social needs details Pt reports some is olation and would be open to having intervention at time of discharge. PFSH All Active Problems (Updated 10/07/25 @ 03:24 by Jose Walker DO) Light-headedness (Acute) Frequent urination (Acute) Symptomatic bradycardia (Acute) BPH (benign prostatic hyperplasia) (Chronic) Atrial dysrhythmia (Acute) Orthostasis (Acute) Pre-syncope (Acute) Hip osteoarthritis (Acute) Weight gain (Acute) Elevated PSA (Acute) 3.96 in December 2019 CAD (coronary artery disease) (Chronic) Hyperlipidemia (Acute) Hematuria (Acute) Cataracts, bilateral (Acute) History of [place] (myocardial infarction) (Acute ~1993) Medical History (Updated 10/07/25 @ 03:24 by Jose Walker DO) Dyspnea Severe aortic stenosis Resolved with valvuloplasty in 2014. Unstable angina Surgical History (Updated 09/03/25 @ 06:00 by Paulino Lemus MD) History of total right hip replacement (08/19/25) History of cataract surgery Left eye: 04/08/2024 Right eye: 04/22/2024 [facility] Hx of CABG Family History Brother Cancer Brother Cancer Social History Smoking/Tobacco Use Status: Never Smoking risk assessment performed?: Yes Alcohol Intake: current Alcohol Intake frequency: holidays/special occasions only Previous attempts at quittin Drug use: Never Substance use type: does not use Details: alcohol: t-365 Adopted: No Household members: none Housing: apartment Number of Children: 3 number of grandchildren: 4 Communication Needs: Corrective Lenses Education Level: vocational Do you need help understanding health information?: Often current occupation: Retired Pets and animals: No Sexually active: No Do you think of yourself as: straight/heterosexual Current gender identity: male What is your relationship status?: How often do you talk on the phone with friends or family?: once per week How often do you get together with friends or relatives?: once per week Do you belong to any clubs or organized social groups?: yes Panel score (0-1 are the most socially isolated patients): 1 What type of physical activity do you participate in: walking Duration: 15-30 minutes/day Frequency: daily Kate/Anabaptism: Congregation Special kate needs: No Agree to transfusion: Yes Seatbelt use: always Drive intox or ride 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) Do you feel safe in your relationship?: Yes
[2025-10-07 01:13] LABS: ALT 17 U/L (10-49); AST 19 U/L (<34); Albumin 4.6 g/dL (3.2-5.0); Alkaline Phosphatase 72 U/L (46-116); Anion Gap 8.9 mmol/L (3-11); BUN 18 mg/dL (9-23); Bilirubin, Total 1.1 mg/dL (0.2-1.2); CO2 28.1 mmol/L (20.0-31.0); Calcium 9.8 mg/dL (8.3-10.6); Chloride 105 mmol/L (98-107); Glucose 95 mg/dL (74-106); Potassium 3.7 mmol/L (3.5-5.1); Sodium 142 mmol/L (136-145); TSH (W/Ref FT4) 4.42 uIU/mL (0.55-4.78); Total Protein 7.4 g/dL (5.7-8.2)
--- NOTE | 2025-10-07 01:15 | DI.CT_ITS ---
Exam(s) CT HEAD WO EXAM: CT HEAD WO CLINICAL HISTORY: lightheaded, dizzy. TECHNIQUE: Imaging Protocol: Axial computed tomography images with coronal and sagittal reformatted images were created and reviewed COMPARISON: CT CT HEAD WO from 08/31/2025 FINDINGS: There are no skull fractures. There is no fluid in the visualized paranasal sinuses. There is no evidence of intracranial hemorrhage, mass effect, or shift of midline structures. There are no extra-axial fluid collections. The ventricles are not enlarged or shifted and there is no blood within the ventricular system nor within the basal cisterns. There is symmetrical involutional change consistent with this patient's advanced age. No acute infarcts evident. IMPRESSION: No acute intracranial findings on this noninfused CT scan of the brain. RADIATION DOSE DELIVERED: 854.15mGy.cm Total DLP DATA REPOSITORY: All CT scans at this facility are submitted to the National Radiology Data Registry (NRDR) Dose Index Registry (DIR) with the [employer] (ACR). RADIATION OPTIMIZATION: All CT scans at this facility use at least one of these dose optimization techniques: automated exposure control; mA and/or kV adjustment per patient size (includes targeted exams where dose is matched to clinical indication); or iterative reconstruction.
[2025-10-07 01:35] LABS: Procalcitonin < 0.10 ng/mL
--- NOTE | 2025-10-07 01:43 | DI.VRAD_ITS ---
PROCEDURE INFORMATION: Exam: XR Chest Exam date and time: 10/07/2025 12:51 AM Age: 80 years old Clinical indication: Other: Crackles left upper lobe; Prior surgery; Surgery date: 6+ months; Surgery type: Cabg TECHNIQUE: Imaging protocol: Radiologic exam of the chest. Views: 1 view. COMPARISON: CR XR CHEST 2V PA LATERAL 08/10/2025 6:43 PM FINDINGS: Lungs: Unremarkable. No consolidation. Pleural spaces: Unremarkable. No pleural effusion. No pneumothorax. Heart/Mediastinum: Unremarkable. No cardiomegaly. Bones/joints: Unremarkable. IMPRESSION: No acute findings. Dictated and Authenticated by: Grabiel Blackburn MD. Orderin Denise Garcia MD
[2025-10-07 01:48] LABS: COVID-19 PCR Negative (Negative); RSV PCR Negative (Negative)
[2025-10-07 02:01] LABS: Troponin I 12 ng/L (<54)
--- NOTE | 2025-10-07 02:15 | DI.VRAD_ITS ---
PROCEDURE INFORMATION: Exam: CT Head Without Contrast Exam date and time: 10/07/2025 1:49 AM Age: 80 years old Clinical indication: Dizziness, lightheaded TECHNIQUE: Imaging protocol: Computed tomography of the head without contrast. Radiation optimization: All CT scans at this facility use at least one of these dose optimization techniques: automated exposure control; mA and/or kV adjustment per patient size (includes targeted exams where dose is matched to clinical indication); or iterative reconstruction. COMPARISON: CT HEAD WO 08/31/2025 7:33 PM FINDINGS: Brain: Mild generalized volume loss of the brain. Old lacunar infarction(s). No brain edema. No intracranial hemorrhage. Cerebral ventricles: No ventriculomegaly. Paranasal sinuses: Visualized sinuses are unremarkable. No fluid levels. Mastoid air cells: Unremarkable. Bones: Unremarkable. No acute fracture. Soft tissues: Unremarkable. IMPRESSION: No acute brain findings. Dictated and Authenticated by: Grabiel Blackburn MD. Orderin Denise Garcia MD
[2025-10-07] MEDS: Normal Saline 250 ML IV (02:41)
== END 2025-10-07 03:44 | disposition home or self-care (01) ==
PROVIDERS: Emergency Provider Student in an Organized Health Care Education/Training Program; PCP Family Medicine
DX: R42 Dizziness and giddiness (principal); R35.0 Frequency of micturition; R60.0 Localized edema; R91.8 Other nonspecific abnormal finding of lung field
CPT/HCPCS: 99284; 99285; 80053; 84145; 87040; 87637; 93005; 96360; 96361; 70450; 71045; 81003; 83605; 84443; 84484; 85025; 85610; 85730; 87086; 93010

== ENCOUNTER 2025-10-13 23:43 | Observation (INO) | payer OTHER, SELFPAY ==
--- NOTE | 2025-10-13 23:30 | RT.EKG_ITS ---
APPROVED REPORT Exam: Resting ECG Reason for Exam: chest pain Patient Location: E HR:57 bpm ECG Measurements Heart Rate 57 AXIS AZ [id number] P [id number] QRSd 108 QRS 67 QT 411 T 139 QTc 401 Conclusion Atrial fibrillation...? atrial activity Incomplete left bundle branch block...QRSd>110mS, terminal axis(-90,-1) Sinus Rhythm with prolong [place] (p wave noted in V3) Incomplete LBBB (old) NS ST changes that are stable No STEMI
[2025-10-13 23:44] VITALS: BP 147/58; PULSE 61; RESP 22; TEMP 37.1; O2SAT 99
[2025-10-13 23:52] VITALS: RESP 22
--- NOTE | 2025-10-13 23:53 | W.ED.GENAD ---
Discharge Plan Disposition Condition: Stable Discharge Details Chief Complaint: Chest Pain Clinical Impression: Chest pain Primary Care Provider: Keyon Anderson ED Provider: Paulino Lemus Meds and New Rx's Prescriptions: No Action cholecalciferol (vitamin D3) 25 mcg (1,000 unit) capsule 1,000 unit PO DAILY Patient Comments: 05/04/20- pt reported med. NC atorvastatin 80 mg tablet 80 mg PO DAILY aspirin 81 mg tablet,delayed release (DR/EC) 81 mg PO DAILY multivitamin Tablet 1 tab PO DAILY acetaminophen 500 mg tablet 1,000 mg PO Q8H PRN Qty: 90 0RF Rx Instructions: Take two tablets up to every 8 hours as needed for pain tramadol 50 mg tablet 50 mg PO Q6H PRNQty: 6 0RF HPI General Mode of arrival: EMS. Date/Time Provider Initiated Documentation: 10/13/25 23:53. Limitations to Documentation: no limitations. Information obtained by: patient, EMS, RN notes reviewed and old records reviewed. HPI Narrative: Patient presents to ED with onset of left-sided chest pain/tightness with some shortness of breath and lightheadedness around 11:00. He called EMS as he does not typically get chest pain. He does have a history of CABG x 2 last 1 being in 2015 when he also underwent aortic valve replacement. He has recently had a right hip replacement which was done here and he did well with it. He was seen preoperatively by cardiology and subsequently had a recent cardiology visit this month. He has not been ill. Denies any fever or cough. Rated the chest pain as 10 out of 10 initially. Did receive full dose aspirin and 1 nitroglycerin by EMS. Patient reports that his chest pain had already improved to 1/10 when he got the nitroglycerin. He does not think the nitroglycerin has changed anything. He no longer feels short of breath. He also denies lightheadedness at this time. He has been having issues with lightheadedness and episodes of bradycardia for which he will apparently be undergoing cardiac monitoring once again. He does not feel that his legs are any more swollen than usual. He has done very well status post his hip surgery and has been ambulating with a walker. Related Data Home Medications ?Medication ?Instructions ?Recorded ?Confirmed atorvastatin 80 mg tablet 80 mg PO DAILY 01/02/20 10/13/25 cholecalciferol (vitamin D3) 25 1,000 unit PO DAILY 05/04/20 10/13/25 mcg (1,000 unit) capsule acetaminophen 500 mg tablet 1,000 mg (2 x 500 mg) PO Q8H PRN 08/19/25 10/13/25 pain #90 tabs multivitamin 1 tab PO DAILY 08/19/25 10/13/25 tramadol 50 mg tablet 50 mg PO Q6H PRN #6 tabs 08/20/25 10/13/25 Held on 10/13/25. Instructions: Pt Stopped/Never Started aspirin 81 mg tablet,delayed 81 mg PO DAILY 10/07/25 10/13/25 release Previous Rx's ?Medication ?Instructions ?Recorded acetaminophen 500 mg tablet 1,000 mg (2 x 500 mg) PO Q8H PRN 08/19/25 pain #90 tabs tramadol 50 mg tablet 50 mg PO Q6H PRN #6 tabs 08/20/25 Held on 10/13/25. Instructions: Pt Stopped/Never Started Allergies Allergy/AdvReac Type Severity Reaction Status Date / Time No Known Allergies Allergy Verified 10/07/25 00:31 General Stated Complaint: Chest Pain CARLEE: 3 Exam Narrative Exam Narrative: Const: Obese elderly male in NAD. VS per triage. HEENT: NC/AT. Normal facial exam. Neck: Supple. Trachea midline. Lungs: Normal respiratory effort. Lungs are clear. No chest wall tenderness. Cor: RRR with murmur. Good radial pulses. GI: Soft/ND/NT. Neuro: A+O x 3. Normal speech, mentation. Cranial nerves II - XII grossly intact. No gross motor or sensory deficit. Ext: No C/C. BLE 2+ baseline per patient. No calf tenderness. Course Vital Signs Vital signs: Vital Signs Temperature 98.7 F 10/13/25 23:44 Pulse 61 10/13/25 23:44 Respiratory Rate 22 10/13/25 23:44 Blood Pressure 147/58 H 10/13/25 23:44 Pulse Oximetry 99 10/13/25 23:44 Temperature 98.7 F 10/13/25 23:44 Temperature Source Oral 10/13/25 23:44 Pulse 61 10/13/25 23:44 Respiratory Rate 22 10/13/25 23:44 Blood Pressure 147/58 H 10/13/25 23:44 Blood Pressure Position Supine 10/13/25 23:44 Pulse Oximetry 99 10/13/25 23:44 Oxygen Delivery Method Room Air 10/13/25 23:44 Oxygen Flow Rate 0 10/13/25 23:44 Pain Level 1 10/13/25 23:44 Medical Decision Making Patient presents to ED after developing left-sided chest pain at rest. Pain described as a tightness with some associated shortness of breath and lightheadedness. EMS did give full dose aspirin as well as a single nitroglycerin. Patient reports pain is already improved before the nitroglycerin and reports no change after nitroglycerin. Feels like he just has mild discomfort currently. He otherwise feels back to baseline. Does have a cardiac history including current workup for episodes of bradycardia and lightheadedness. His EKG on arrival shows no STEMI and no ST changes to suggest ischemia. IV is in place. Will obtain labs including serial troponin as well as D-dimer given his recent hip replacement. 02:30 - Patient's initial labs overall reassuring. Hemoglobin a little low at 9.7 but given his recent hip replacement very reasonable. Potassium was a little low at 3.2 and he was given oral replacement. Liver function is normal. Initial troponin normal. D-dimer markedly elevated so CTA of the chest ordered. Per preliminary radiology read there is no evidence of pulmonary embolus. Some areas of under inflation no consolidation, pleural effusion. Some question of calculus in the cystic or common bile duct but given that the patient has no abdominal pain or GI symptoms, normal liver function and patient currently feels back to baseline we will hold off pursuing further imaging regarding this. I do plan to obtain 1 hour and 3-hour troponins and speak with cardiology at the [facility] where he gets his care. 05:50 - Patient's troponins remained flat and he has had no recurrent chest pain. No cardiology available at the [facility] overnight for consults. I have therefore discussed with cardiology at [facility]. Patient is deemed too high of risk to simply be discharged despite no recurrent pain. Recommendation is for admission to obtain ECHO and stress test. Unfortunately we will not be able to do stress testing until next week. We can likely get the ECHO completed. After further discussion with cardiology at [facility], we will attempt to speak with cardiology at the [facility] after 8 AM to see if we can arrange for transfer there. If not we will need to admit here to get the ECHO completed and [facility] likely able to take tomorrow to get the stress testing done. I have discussed this at length with the patient who is agreeable with this plan. Will discuss with my colleague this morning at change of shift. Medical Records Medical records reviewed: Yes I reviewed the patient's medical records. Medical records narrative: cardiology and PCP notes; ortho Lab Data Lab results reviewed: Yes I reviewed the patient's lab results. Lab results narrative: see MDM ECG Data Attestation: I personally reviewed and interpreted this ECG (s) as follows: Prior ECG tracings: available for review Interpretation: see EKG/MDM Quality:SDOH Health Related Social Needs: Health related social needs lonely/isolated Health related social needs details Pt reports some isolation and would be open to having intervention at time of discharge. PFSH All Active Problems (Updated 10/14/25 @ 05:58 by Paulino Lemus MD) Chest pain (Acute) Light-headedness (Acute) Frequent urination (Acute) Symptomatic bradycardia (Acute) BPH (benign prostatic hyperplasia) (Chronic) Atrial dysrhythmia (Acute) Orthostasis (Acute) Pre-syncope (Acute) Hip osteoarthritis (Acute) Weight gain (Acute) Elevated PSA (Acute) 3.96 in December 2019 CAD (coronary artery disease) (Chronic) Hyperlipidemia (Acute) Hematuria (Acute) Cataracts, bilateral (Acute) History of PA (myocardial infarction) (Acute ~1993) Medical History (Updated 10/14/25 @ 05:58 by Paulino Lemus MD) Dyspnea Severe aortic stenosis Resolved with valvuloplasty in 2014. 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) History of cataract surgery Left eye: 04/08/2024 Right eye: 04/22/2024 [facility] Hx of CABG Family History Brother Cancer Brother Cancer Social History Smoking/Tobacco Use Status: Never Smoking risk assessment performed?: Yes Alcohol Intake: current Alcohol Intake frequency: holidays/special occasions only Previous attempts at quittin Drug use: Never Substance use type: does not use Details: alcohol: t-365 Adopted: No Household members: none Housing: apartment Number of Children: 3 number of grandchildren: 4 Communication Needs: Corrective Lenses Education Level: vocational Do you need help understanding health information?: Often current occupation: Retired Pets and animals: No Sexually active: No Do you think of yourself as: straight/heterosexual Current gender identity: male What is your relationship status?: How often do you talk on the phone with friends or family?: once per week How often do you get together with friends or relatives?: once per week Do you belong to any clubs or organized social groups?: yes Panel score (0-1 are the most socially isolated patients): 1 What type of physical activity do you participate in: walking Duration: 15-30 minutes/day Frequency: daily Kate/Scientologist: Religious Special kate needs: No Agree to transfusion: Yes Seatbelt use: always Drive intox or ride w/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
[2025-10-14] VITALS (149 sets, daily range): BP systolic 117–171; BP diastolic 43–99; PULSE 42–98; RESP 9–34; TEMP 36.9–37; O2SAT 88–100
[2025-10-14 00:50] LABS: Abs Immature Grans 0.02 10^3/uL (0.0-0.06); HCT 29.7 % (40.0-50.0); HGB 9.7 g/dL (13.5-17.5); Immature Grans % 0.4 %; MCH 29.1 pg (27.0-33.0); MCHC 32.7 % (32.0-36.0); MCV 89 fL (80-95); MPV 9.9 fL (8.0-11.0); Platelet Count 133 10^3/uL (130-400); RBC 3.33 10^6/uL (4.36-5.78); RDW 14.2 % (11.8-14.1); RDW-SD 46.5 fL; WBC 5.64 10^3/uL (4.4-10.8)
[2025-10-14 01:07] LABS: Troponin I 13 ng/L (<54)
[2025-10-14 01:08] LABS: INR 1.1 (0.9-1.1); PTT Activated 26.1 sec (20.6-30.2); Prothrombin Time 10.9 sec (9.1-11.1)
[2025-10-14 01:09] LABS: ALT 11 U/L (10-49); AST 13 U/L (<34); Albumin 3.9 g/dL (3.2-5.0); Alkaline Phosphatase 60 U/L (46-116); Anion Gap 8 mmol/L (3-11); BUN 24 mg/dL (9-23); Bilirubin, Total 0.7 mg/dL (0.2-1.2); CO2 27.0 mmol/L (20.0-31.0); Calcium 8.9 mg/dL (8.3-10.6); Chloride 109 mmol/L (98-107); Glucose 93 mg/dL (74-106); Magnesium 1.6 mg/dL (1.6-2.6); Potassium 3.2 mmol/L (3.5-5.1); Sodium 144 mmol/L (136-145); Total Protein 6.3 g/dL (5.7-8.2)
[2025-10-14 01:15] LABS: D-Dimer 1812 ng/mlFEU (<500)
--- NOTE | 2025-10-14 01:15 | DI.CT_ITS ---
Exam(s) CT CHEST PE CTA EXAM: CT CHEST PE CTA CLINICAL HISTORY: CP with elevated d-dimer. TECHNIQUE: Imaging Protocol: Axial CT angiography was performed with multi- slice acquisition and multi-planar reconstructions as well as axial, coronal and sagittal MIP reconstructions. Computer aided detection (CAD) was utilized. CONTRAST MATERIAL: Intravenous: Omnipaque 350 Contrast volume:100 ml COMPARISON: CT CT CHEST PE CTA from 05/14/2024 FINDINGS: Pulmonary Arteries: Well opacified with IV contrast. No evidence of filling defect to suggest pulmonary emboli. Mediastinum and Nyla: No dominant adenopathy or fluid collection. Pulmonary parenchyma: No consolidation or dominant measurable mass. Expiratory changes. Pleura: No effusion or pneumothorax. Heart: The heart is dilated. Moderate coronary artery calcifications are seen. Aorta: Thoracic aorta non-dilated. No dissection. Atherosclerotic changes. Aortic valve prosthesis. Upper abdomen: On the last image, there is a calcification which could be within the cystic duct or proximal common bile duct. This area is incompletely imaged. Bones: Sternal wires. Prominent osteophytes in the thoracic spine. Tubes, Catheters, and Lines: None Soft tissues: Unremarkable. IMPRESSION: No evidence of pulmonary embolism. Calcification noted which could either be in cystic duct or common bile duct. No intrahepatic biliary dilatation is evident. The preliminary [facility] report was reviewed. RADIATION DOSE DELIVERED: 134.73mGy.cm Total DLP DATA REPOSITORY: All CT scans at this facility are submitted to the National Radiology Data Registry (NRDR) Dose Index Registry (DIR) with the [employer] (ACR). RADIATION OPTIMIZATION: All CT scans at this facility use at least one of these dose optimization techniques: automated exposure control; mA and/or kV adjustment per patient size (includes targeted exams where dose is matched to clinical indication); or iterative reconstruction.
[2025-10-14] MEDS: Potassium Chloride 20 MEQ TABCR 40 MEQ PO (01:21)
[2025-10-14] MEDS: Normal Saline - Diluent 50 ML VIAL IJ (01:31)
[2025-10-14] MEDS: Omnipaque 350 MG/ML 100 ML BTL IJ (01:31)
[2025-10-14] MEDS: Normal Saline Flush 10 ML SYR IVP (01:32)
--- NOTE | 2025-10-14 02:13 | DI.[facility]_ITS ---
PROCEDURE INFORMATION: Exam: CTA Chest With Contrast Exam date and time: 10/14/2025 1:31 AM Age: 80 years old Clinical indication: Abnormal findings; Abnormal diagnostic tests; Elevated d-dimer; Prior surgery; Surgery date: 6+ months; Surgery type: Cabg; Cp with elevated -dimer TECHNIQUE: Imaging protocol: Computed tomographic angiography of the chest with contrast. Exam focused on the arteries. 3D rendering (Not supervised by radiologist): MIP and/or 3D reconstructed images were created by the technologist. Radiation optimization: All CT scans at this facility use at least one of these dose optimization techniques: automated exposure control; mA and/or kV adjustment per patient size (includes targeted exams where dose is matched to clinical indication); or iterative reconstruction. Contrast material: OMNIPAQUE 350; Contrast volume: 85 ml; Contrast route: INTRAVENOUS (IV); COMPARISON: CT CHEST PE CTA 05/14/2024 12:15 PM FINDINGS: Pulmonary arteries: No pulmonary embolus is appreciated. Aorta: Atherosclerotic changes in the aorta and its branches. Lungs: Faint ground-glass opacities in the lungs, likely areas of underinflation. Scarring/atelectasis in both lungs. Pleural spaces: No pleural effusion. Heart: No pericardial effusion. Coronary arteries: Coronary artery calcifications. Lymph nodes: Nonspecific mediastinal lymph nodes. Liver: Hepatomegaly. Gallbladder and biliary ducts: Question calculus in cystic or common bile duct, incompletely imaged on this examination. Bones/joints: No acute pertinent abnormality seen. Soft tissues: No acute pertinent abnormality seen. IMPRESSION: Questionable cystic or common bile duct calculus, incompletely imaged. Clinical correlation advised. Dictated and Authenticated by: Allie Lezama MD. Orderin Allan Bob MD
[2025-10-14 02:18] LABS: Troponin I 13 ng/L (<54)
[2025-10-14 04:08] LABS: Troponin I 17 ng/L (<54)
--- NOTE | 2025-10-14 09:01 | ED.PROG_ITS ---
Date of service: 10/14/25 Time of Service: 09:01 Medical Decision Making Patient signed out to me pending potential transfer to the [facility]. Patient is currently pain-free. supervisor insulation at the [facility] called and said that there is going to be a long family meeting with the hospitalist which will delay them calling back for a few hours. Patient updated of this. We apparently do not have stress testing until next Monday. [facility] the [facility] due to capacity currently. Patient remained stable. I did repeat an EKG which on my read shows no changes from prior. I did reach back out to [facility] and they are checking on if he can be transferred to their facility or one of their satellite facilities. spoke with Gab Carlin [facility] cardiology PROFESSOR OF JOURNALISM who reviewed the case with the current fellow that was on today and after reviewing patient's labs and history feel if patient has a reassuring echocardiogram that they could have an outpatient stress test. I confirm that the boiler service technician would be able to perform this tomorrow. Discussed with Dr. Aj who will plan to admit. After patient had been admitted and went upstairs [facility] called and [facility] that [facility], I spoke with the hospitalist Ramy Valiente who accepted the patient to their facility. I updated Dr. Aj as well. ECG Data Attestation: I personally reviewed and interpreted this ECG (s) as follows: Prior ECG tracings: available for review Interpretation: ekg 10/14/25 at 12:47 shows sinus rate of 70 no stemi Quality:SDOH Health Related Social Needs: Health related social needs daily activities lonely/is olated Health related social needs details Will touch [facility] care management. Discharge Plan Disposition Patient Disposition: Admit to [facility] Condition: Stable Discharge Details Clinical Impression: Chest pain Admit Date/Time: 10/14/25 14:05 Admit Provider: Crow Aj Attending Provider: Crow Aj Primary Care Provider: Keyon Anderson ED Provider: Norbert Moss
--- NOTE | 2025-10-14 12:30 | RT.EKG_ITS ---
APPROVED REPORT Exam: Resting ECG Reason for Exam: chest pain Patient Location: E HR:70 bpm ECG Measurements Heart Rate 70 AXIS MS 345 P 89 QRSd 103 QRS 65 QT 383 T 173 QTc 426 Conclusion Sinus rhythm...normal P axis, V-rate 60- 99 Ventricular premature complex...V complex w/ short R-R interval Prolonged MS interval...MS >220, V-rate 50- 90 Anteroseptal infarct, old...Q >40mS, V1-V2
--- NOTE | 2025-10-14 14:06 | HPE_ITS ---
Date of service: 10/14/25 Time of Service: 14:06 Assessment and Plan Assessment and plan (1) Chest pain: Status: Acute Assessment and plan: cardiology consulted in ED with recommendations for Echo and stress test when available. patient is c/p free EKG no acute ischemic changes, serial troponin negative admitted on telemetry echo in am likely stress test outpatient (2) CAD (coronary artery disease): Status: Chronic Assessment and plan: continue asa and statin (3) Hypokalemia: Status: Acute Assessment and plan: given 40 meq oral in the ED magnesium 1.6 repeat level in am. (4) Elevated d-dimer: Status: Acute Assessment and plan: PE ruled out by CT (5) BPH (benign prostatic hyperplasia): Status: Chronic Assessment and plan: monitor for urinary retention discussed with DR Aj History of Present Illness History of Present Illness Chief Complaint: chest pain Narrative: Please see discharge summary as a bed became available shortly after patient arrived to the floor will serve as H&P and discharge summary Review of Systems All systems reviewed & are unremarkable except as noted in HPI and below PFSH All Active Problems (Updated 10/14/25 @ 15:01 by AMERICO ALCANTARA) Elevated d-dimer (Acute) Hypokalemia (Acute) Chest pain (Acute) Light-headedness (Acute) Frequent urination (Acute) Symptomatic bradycardia (Acute) BPH (benign prostatic hyperplasia) (Chronic) Atrial dysrhythmia (Acute) Orthostasis (Acute) Pre-syncope (Acute) Hip osteoarthritis (Acute) Weight gain (Acute) Elevated PSA (Acute) 3.96 in December 2019 CAD (coronary artery disease) (Chronic) Hyperlipidemia (Acute) Hematuria (Acute) Cataracts, bilateral (Acute) History of PR (myocardial infarction) (Acute ~1993) Medical History (Updated 10/14/25 @ 15:01 by AMERICO ALCANTARA) Dyspnea Severe aortic stenosis Resolved with valvuloplasty in 2014. 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) History of cataract surgery Left eye: 04/08/2024 Right eye: 04/22/2024 [facility] Hx of CABG Family History Brother Cancer Brother Cancer Social History Smoking/Tobacco Use Status: Never Smoking risk assessment performed?: Yes Alcohol Intake: current Alcohol Intake frequency: holidays/special occasions only Previous attempts at quittin Drug use: Never Substance use type: does not use Details: alcohol: t-365 Adopted: No Household members: none Housing: assisted living facility Number of Children: 3 number of grandchildren: 4 Communication Needs: Corrective Lenses Education Level: vocational Do you need help understanding health information?: Often current occupation: Retired Pets and animals: No Sexually active: No Do you think of yourself as: straight/heterosexual Current gender identity: male What is your relationship status?: How often do you talk on the phone with friends or family?: once per week How often do you get together with friends or relatives?: once per week Do you belong to any clubs or organized social groups?: yes Panel score (0-1 are the most socially isolated patients): 1 What type of physical activity do you participate in: walking Duration: 15-30 minutes/day Frequency: daily Kate/Sabianist: Yazidism Special kate needs: No Agree to transfusion: Yes Seatbelt use: always Drive 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 Do you feel safe at home: Yes (Lives in [facility]) Do you feel safe in your relationship?: Yes Meds Allergies and Home Medications Allergies Allergy/AdvReac Type Severity Reaction Status Date / Time No Known Allergies Allergy Verified 10/07/25 00:31 Home Medications ?Medication ?Instructions ?Recorded ?Confirmed ?Type atorvastatin 80 mg tablet 80 mg PO DAILY 01/02/2009/16 History cholecalciferol (vitamin D3) 25 1,000 unit PO DAILY 10/13/25 History mcg (1,000 unit) capsule acetaminophen 500 mg tablet 1,000 mg (2 x 500 mg) PO Q 8H PRN 08/19/25 10/13/25 Rx pain #90 tabs multivitamin 1 tab PO DAILY 08/19/2509/16 History aspirin 81 mg tablet,delayed 81 mg PO DAILY 10/07/25 1 History release Results Labs 10/14/25 00:42 10/14/25 00:42 Labs: Laboratory Results - last 24 hr 10/14/25 10/14/25 10/14/25 00:42 01:53 03:42 WBC 5.64 RBC 3.33 L Hgb 9.7 L Hct 29.7 L MCV 89 MCH 29.1 MCHC 32.7 RDW 14.2 H Plt Count 133 MPV 9.9 Immature Gran % 0.4 Neutrophils % 64.9 Lymphocytes % 16.7 Monocytes % 11.2 Eosinophils % 5.7 Basophils % 1.1 Nucleated RBC % 0.0 Absolute Neutrophils 3.67 Absolute Lymphocytes 0.94 L Absolute Monocytes 0.63 Absolute Eosinophils 0.32 Absolute Basophils 0.06 PT 10.9 INR 1.1 APTT 26.1 D-Dimer 1812 H Sodium 144 Potassium 3.2 L Chloride 109 H Carbon Dioxide 27.0 Anion Gap 8 BUN 24 H Creatinine 0.81 Est GFR (CKD-EPI 2020) 91.19 Glucose 93 Calcium 8.9 Magnesium 1.6 Total Bilirubin 0.7 AST 13 ALT 11 Alkaline Phosphatase 60 Troponin I 13 13 17 Total Protein 6.3 Albumin 3.9 Last Vital Signs Temp 37.1 C 10/13/25 23:44 Pulse 63 10/14/25 14:01 Resp 30 H 10/14/25 14:01 BP 133/78 10/14/25 14:01 Pulse Ox 96 10/14/25 14:01 VTE Prohylaxis Risk Level: Moderate/High Risk Contraindications: None Prophylaxis: Pharmacologic and Mechanical Time Spent Time spent with Patient: 55-74 minutes Time was spent: preparing to see the patient(eg.review tests), obtaining and/or reviewing separately otained hiistory, ordering medications,tests, procedures, referring, communicating with other health doggy daycare activities director, indepentently interpreting results, counseling the patient and care coordination
--- NOTE | 2025-10-14 14:51 | W.PC.ACHO ---
Registration Status: REG ER Primary Language: Preferred Language: Lithuanian ED Information & Data Chief Complaint Chest Pain 10/14/25 00:08 Triage Note BIBEMS, CP started around 10/13/25 23:44 2300. was 10/10 pain with SOB, now 1/10 dull pain, feels breathing is baseline at this time. 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) History of cataract surgery Hx of CABG Most Recent Vital Signs Temperature 37.1 C 10/13/25 23:44 Temperature Source Oral 10/13/25 23:44 Pulse 63 10/14/25 14:01 Pulse 52 L 10/14/25 14:01 Respiratory Rate 30 H 10/14/25 14:01 Respiratory Effort Normal, Non-Labored 10/14/25 06:21 Respiratory Depth Normal 10/14/25 06:21 Respiratory Pattern Normal 10/14/25 06:21 Blood Pressure 133/78 10/14/25 14:01 Blood Pressure Mean 98 10/14/25 14:01 Blood Pressure Position Supine 10/13/25 23:44 Pulse Oximetry 96 10/14/25 14:01 Oxygen Delivery Method Room Air 10/14/25 06:21 Oxygen Flow Rate 0 10/14/25 06:21 Pain Level 1 10/13/25 23:44 Allergies No Known Allergies Allergy (Verified 10/07/25 00:31) Precautions Isolation Fall precaution 10/13/25 23:52 Active Medications Generic Name Dose Route Start Last Admin Trade Name Freq PRN Reason Stop Dose Admin Iohexol 100 ml 10/14/25 01:30 10/14/25 01:31 Omnipaque 350 Mg/Ml 100 Ml Btl IJ 11/13/25 23:59 85 ml DIRECTED LETA Administration Sodium Chloride 50 ml 10/14/25 01:30 10/14/25 01:31 Normal Saline - Diluent 50 Ml Vial IJ 50 ml DIRECTED LETA Administration Sodium Chloride 0 ml 10/14/25 01:27 10/14/25 01:32 Normal Saline Flush 10 Ml Syr IVP 10 ml PRN PRN Administration IV IV Catheter Type [Left Peripheral IV Antecubital] IV Catheter Gauge [Left 18 Antecubital] Diagnostics 10/14/25 10/14/25 10/14/25 Range/Units 03:42 01:53 00:42 WBC 5.64 (4.4-10.8) 10^3/uL RBC 3.33 L (4.36-5.78) 10^6/uL Hgb 9.7 L (13.5-17.5) g/dL Hct 29.7 L (40.0-50.0) % MCV 89 (80-95) fL MCH 29.1 (27.0-33.0) pg MCHC 32.7 (32.0-36.0) % RDW 14.2 H (11.8-14.1) % Plt Count 133 (130-400) 10^3/uL MPV 9.9 (8.0-11.0) fL Immature Gran % 0.4 % Neutrophils % 64.9 % Lymphocytes % 16.7 % Monocytes % 11.2 % Eosinophils % 5.7 % Basophils % 1.1 % Nucleated RBC % 0.0 (0.0-0.3) % Absolute Neutrophils 3.67 (1.2-6.7) 10^3/uL Absolute Lymphocytes 0.94 L (1.2-3.4) 10^3/uL Absolute Monocytes 0.63 (0.1-0.8) 10^3/uL Absolute Eosinophils 0.32 (0.0-0.7) 10^3/uL Absolute Basophils 0.06 (0.0-0.2) 10^3/uL PT 10.9 (9.1-11.1) sec INR 1.1 (0.9-1.1) APTT 26.1 (20.6-30.2) sec D-Dimer 1812 H (<500) ng/mlFEU Sodium 144 (136-145) mmol/L Potassium 3.2 L (3.5-5.1) mmol/L Chloride 109 H (98-107) mmol/L Carbon Dioxide 27.0 (20.0-31.0) mmol/L Anion Gap 8 (3-11) mmol/L BUN 24 H (9-23) mg/dL Creatinine 0.81 (0.73-1.18) mg/dL Est GFR (CKD-EPI 2020) 91.19 (mL/min/1.73m2) Glucose 93 (74-106) mg/dL Calcium 8.9 (8.3-10.6) mg/dL Magnesium 1.6 (1.6-2.6) mg/dL Total Bilirubin 0.7 (0.2-1.2) mg/dL AST 13 (<34) U/L ALT 11 (10-49) U/L Alkaline Phosphatase 60 (46-116) U/L Troponin I 17 13 13 (<54) ng/L Total Protein 6.3 (5.7-8.2) g/dL Albumin 3.9 (3.2-5.0) g/dL Intake and Output - 24 Hour Total 10/13/25 23:38 thru 10/14/25 12: Intake Total 240 Output Total 675 Balance -435 Weight 110.1 kg Intake: Oral 240 Output: Urine 675 Falls Risk Assessment History of Falls Previous History 10/13/25 23:52 Contributing Factors Impairments 10/13/25 23:52 Ambulatory Aids Uses ambulatory device + 10/13/25 23:52 Tubes/Lines With any additional score 10/13/25 23:52 Cognition No cognitive impairment 10/13/25 23:52 Fall Total Score 68 10/13/25 23:52 Level of Risk High Risk 10/13/25 23:52 Problems (Last Reviewed 08/31/25 @ 19:09 by Jose Rosales MD) Elevated d-dimer (Acute) Hypokalemia (Acute) Chest pain (Acute) BPH (benign prostatic hyperplasia) (Chronic) CAD (coronary artery disease) (Chronic) Attestation Statement: By documenting the first initial, last name, and credentials of the reporting nurse below, both parties acknowledge that all relevant information regarding the patient handoff has been communicated, and that all questions have been addressed to ensure continuity and safety of care. Additional Patient Information/Comments: Paged at [phone], report called at [phone]. Pt x2 IVs, unsteady on his feet. Report Received From: Leti Montiel, ED RN
--- NOTE | 2025-10-14 15:16 | DSE_ITS ---
Date of service: 10/14/25 Time of Service: 15:16 DS: Diagnosis Discharge Diagnosis (1) Chest pain: Status: Acute (2) CAD (coronary artery disease): Status: Chronic (3) Hypokalemia: Status: Acute (4) Elevated d-dimer: Status: Acute (5) BPH (benign prostatic hyperplasia): Status: Chronic Discharge Plan Disposition Patient Disposition: [facility]/ME Anticipated Discharge Date/Time: 10/14/25 15:16 Condition: Stable Discharge Details Reason For Visit: chest pain Admit Date/Time: 10/14/25 14:05 Admit Provider: Crow Aj Attending Provider: Crow Aj Primary Care Provider: Keyon Anderson [facility] Course Hospital Course: This is an 80-year-old male patient past medical history significant for coronary artery disease status post triple bypass in 1999, double bypass and AVR in 2014 who presented here to the emergency department last evening after he experienced left sided chest pain he reports is severe. He states he had gone to bed and woke up feeling like he needed to urinate. While he was getting to the bathroom he developed left-sided chest pain that he reports was sharp. He alerted his life alert and continue to have the pain until EMS arrived. He said it was approximately 20 minutes in duration. He states that after returning back to bed and resting that the pain finally began subsiding. He was given 4 baby aspirin to chew and states after that he was chest pain-free. He presented to the emergency department for evaluation by EMS. He remained chest pain-free. His EKG was nonischemic. Troponin and delta troponins remained negative. He remained hemodynamically stable and monitored in the emergency department with no dysrhythmias or chest pain. His case was discussed with cardiology and re commendations were for stress testing and echocardiogram which were not available here. He is a ME patient and they did reach out to the ME and he has been accepted under Dr. Mendoza Valiente and is being transported by ground EMS. Home Meds and New Rx's Prescriptions: Continued cholecalciferol (vitamin D3) 25 mcg (1,000 unit) capsule 1,000 unit PO DAILY Patient Comments: 05/04/20- pt reported med. NC atorvastatin 80 mg tablet 80 mg PO DAILY aspirin 81 mg tablet,delayed release (DR/EC) 81 mg PO DAILY multivitamin Tablet 1 tab PO DAILY acetaminophen 500 mg tablet 1,000 mg PO Q8H PRN Qty: 90 0RF Rx Instructions: Take two tablets up to every 8 hours as needed for pain Discharge Instructions Instructions: Chest pain Referrals: Keyon Anderson DO [Primary Care Provider, Medicine] Activity:: Activity as Tolerated Equipment/Supplies:: No Equipment Needed Diet:: As Tolerated Discharge Orders Discharge Orders: Discharge Order (Routine); Ordered 10/14/25 Ordered By: Caridad Whitney DS: Summary Time Spent with Patient providing and/or coordinating discharge services: Greater than 30 minutes Status at Discharge Functional status at discharge: independent ambulation Overall status at discharge: patient is back to baseline Mental Status: mental status grossly normal Speech and Movement: speech and movement normal Mood: congruent mood Affect: normal affect Quality:SDOH Health Related Social Needs: Health related social needs daily activities lonely/is olated Health related social needs details Will touch base [facility] care management. Exam Narrative Exam Narrative: Elderly male frail head is atraumatic eyes nonicteric noninjected oral mucosas moist neck is supple full range of motion cardiovascular regular rate and rhythm positive murmur 4 out of 6 respirations even and unlabored breath sounds are clear bilaterally no rales or wheezing abdomen is round distended soft nontender moves all extremities equally trace peripheral edema states baseline neurologic he is awake alert oriented no focal deficits psychiatric appropriate mood and affect Psych Mental Status: mental status grossly normal Speech and Movement: speech and movement normal Mood: congruent mood Affect: normal affect DS: Data Vitals/I&O Vitals and I&O: Vital Signs Temperature 37.1 C 10/13/25 23:44 Temperature Source Oral 10/13/25 23:44 Pulse 51 L 10/14/25 14:46 Pulse 69 10/14/25 14:46 Respiratory Rate 19 10/14/25 14:46 Respiratory Effort Normal, Non-Labored 10/14/25 06:21 Respiratory Depth Normal 10/14/25 06:21 Respiratory Pattern Normal 10/14/25 06:21 Blood Pressure 143/44 H 10/14/25 14:46 Blood Pressure Mean 81 10/14/25 14:46 Blood Pressure Position Supine 10/13/25 23:44 Pulse Oximetry 97 10/14/25 14:46 Oxygen Delivery Method Room Air 10/14/25 06:21 Oxygen Flow Rate 0 10/14/25 06:21 Pain Level 1 10/13/25 23:44 Intake & Output 10/13/25 10/14/25 10/14/25 23:59 11:59 23:59 Intake Total 240 / 240 Output Total 375 / 675 300 / 675 Balance -375 / -435 -60 / -435 Weight 110.1 kg Intake: Oral 240 / 240 Output: Urine 375 / 675 300 / 675 Data Completed and Pending Pending Labs at Discharge: 10/14/25 10/14/25 10/14/25 00:42 01:53 03:42 WBC 5.64 RBC 3.33 L Hgb 9.7 L Hct 29.7 L MCV 89 MCH 29.1 MCHC 32.7 RDW 14.2 H Plt Count 133 MPV 9.9 Immature Gran % 0.4 Neutrophils % 64.9 Lymphocytes % 16.7 Monocytes % 11.2 Eosinophils % 5.7 Basophils % 1.1 Nucleated RBC % 0.0 Absolute Neutrophils 3.67 Absolute Lymphocytes 0.94 L Absolute Monocytes 0.63 Absolute Eosinophils 0.32 Absolute Basophils 0.06 PT 10.9 INR 1.1 APTT 26.1 D-Dimer 1812 H Sodium 144 Potassium 3.2 L Chloride 109 H Carbon Dioxide 27.0 Anion Gap 8 BUN 24 H Creatinine 0.81 Est GFR (CKD-EPI 2020) 91.19 Glucose 93 Calcium 8.9 Magnesium 1.6 Total Bilirubin 0.7 AST 13 ALT 11 Alkaline Phosphatase 60 Troponin I 13 13 17 Total Protein 6.3 Albumin 3.9 PFSH All Active Problems (Updated 10/14/25 @ 15:01 by [place] [place]) Elevated d-dimer (Acute) Hypokalemia (Acute) Chest pain (Acute) Light-headedness (Acute) Frequent urination (Acute) Symptomatic bradycardia (Acute) BPH (benign prostatic hyperplasia) (Chronic) Atrial dysrhythmia (Acute) Orthostasis (Acute) Pre-syncope (Acute) Hip osteoarthritis (Acute) Weight gain (Acute) Elevated PSA (Acute) 3.96 in December 2019 CAD (coronary artery disease) (Chronic) Hyperlipidemia (Acute) Hematuria (Acute) Cataracts, bilateral (Acute) History of NH (myocardial infarction) (Acute ~1993) Medical History (Updated 10/14/25 @ 15:01 by [employer]) Dyspnea Severe aortic stenosis Resolved with valvuloplasty in 2014. 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) History of cataract surgery Left eye: 04/08/2024 Right eye: 04/22/2024 [facility] Hx of CABG Family History Brother Cancer Brother Cancer Social History Smoking/Tobacco Use Status: Never Smoking risk assessment performed?: Yes Alcohol Intake: current Alcohol Intake frequency: holidays/special occasions only Previous attempts at quittin Drug use: Never Substance use type: does not use Details: alcohol: t-365 Adopted: No Household members: none Housing: assisted living facility Number of Children: 3 number of grandchildren: 4 Communication Needs: Corrective Lenses Education Level: vocational Do you need help understanding health information?: Often current occupation: Retired Pets and animals: No Sexually active: No Do you think of yourself as: straight/heterosexual Current gender identity: male What is your relationship status?: How often do you talk on the phone with friends or family?: once per week How often do you get together with friends or relatives?: once per week Do you belong to any clubs or organized social groups?: yes Panel score (0-1 are the most socially isolated patients): 1 What type of physical activity do you participate in: walking Duration: 15-30 minutes/day Frequency: daily Kate/[employer]ist: [employer] Special kate needs: No Agree to transfusion: Yes Seatbelt use: always Drive intox or ride w/intox speedboat driver: No Do you feel safe at home: Yes (Lives in [facility]) Do you feel safe in your relationship?: Yes Time Spent with Patient Time Spent with Patient: 70-84 minutes4 Time was spent: preparing to see the patient(eg.review tests), obtaining and/or reviewing separately otained hiistory, ordering medications,tests, procedures, referring, communicating with other health day care home provider, indepentently interpreting results, counseling the patient and care coordination
== END 2025-10-14 19:12 ==
LOC: ER 10-14 14:13 → MS 10-14 15:00
PROVIDERS: Emergency Medicine; Admitting Provider Family Medicine; Emergency Provider Emergency Medicine; PCP Family Medicine; Visit Provider Family Medicine
DX: R07.89 Other chest pain (principal); I25.10 Atherosclerotic heart disease of native coronary artery without angina pectoris; E87.6 Hypokalemia; N40.1 Benign prostatic hyperplasia with lower urinary tract symptoms; R39.12 Poor urinary stream; R79.1 Abnormal coagulation profile; R42 Dizziness and giddiness; E78.5 Hyperlipidemia, unspecified; I25.2 Old myocardial infarction; I49.8 Other specified cardiac arrhythmias; Z96.641 Presence of right artificial hip joint; Z95.1 Presence of aortocoronary bypass graft; Z73.89 Other problems related to life management difficulty; R45.89 Other symptoms and signs involving emotional state
CPT/HCPCS: 00123; 71275; 80053; 93005; 83735; 84484; 85025; 85379; 85610; 85730; 93010; 99222; G0378; J3490